=== PATIENT | female | born 1965 | race Caucasian/White ===

== ENCOUNTER 2020-12-28 12:49 | Inpatient (IN) | payer OTHER, SELFPAY ==
--- NOTE | 2020-12-28 12:58 | PC.NURSE ---
@ 12:50PM SISTER MORRIS HICKS CALLED FROM [place], CONCERNED FOR THIS PT HAVING A PSYCHOTIC BREAK AND BEING NON MED COMPLIANT FOR AWHILE MORRIS HICKS PHONE NUMBER IN [place] [phone] STATES TO PLEASE CALL WITH ANY QUESTIONS (THERE IS A 4 HOUR TIME DIFFERENCE IT WAS 5:50PM OVER THERE WHEN SHE CALLED)
--- NOTE | 2020-12-28 13:27 | ED.PSYCH ---
HPI - Psych General Chief Complaint: Psychiatric Symptoms Stated Complaint: CRISIS Time Seen by Provider: 12/28/20 13:15 Source: patient Mode of arrival: ambulatory History of Present Illness HPI Narrative: 55-year-old female presenting to the ED complaining of increased depression x a while, reports she is crying all the time, no desire to do anything. Reports increased lethargy. States she misses her family he was [place]. Denies SI/HI, EtOH or illicit drug use. Has been sober x3 years. Denies CP/SOB, abdominal pain, nausea/vomiting MD complaint: feels depressed Related Data Allergies Allergy/AdvReac Type Severity Reaction Status Date / Time No Known Allergies Allergy Unverified 12/28/20 13:32 Review of Systems Review of Systems: Constitutional: No Fever, No Chills, No Fatigue, No Malaise ENT/Mouth: No Ear Pain, No Nasal Congestion, No sore throat, No Rhinorrhea Eyes: No Eye Pain, No Swelling, No Discharge Cardiovascular: No Chest Pain, No SOB Respiratory: No Cough, No Dyspnea Gastrointestinal: No Nausea, No Vomiting, No Diarrhea, No Constipation, No Abdominal pain Genitourinary: No Dysuria, No Flank Pain Musculoskeletal: No joint pain, No Myalgias, No Joint Swelling Skin: No Skin Lesions, No rash Neuro: No Weakness, No Numbness, No Headache Psych: No Anxiety/Panic, + Depression, No SI/HI/AH/VH, No Social Issues Yes all other systems are reviewed and are negative [facility] Past Medical History Attestation statement: The following information was validated with the patient. Medical History (Updated 12/28/20 @ 17:44 by GUIDO Thompson) Depression Social History Social History Advance Directives: No Advance Directives Information Provided: Yes Physical Exam Vital Signs: Vital Signs: Last Vital Signs Temp 97.3 F 12/28/20 13:31 Pulse 92 12/28/20 13:31 Resp 18 12/28/20 13:31 BP 141/79 H 12/28/20 13:31 Pulse Ox 98 12/28/20 13:31 Body Mass Index 23.3 Const: General: cooperative, comfortable and no acute distress Orientation/consciousness: patient oriented x3 Limitations: no limitations HENMT: Head: Yes normal to inspection and Yes atraumatic Ears: hearing grossly normal bilaterally General nose exam: Normal external nose present Face and sinus: Yes normal facial exam Eyes: General: appearance normal, both eyes and all related structures EOM: EOMs intact bilaterally Neck: Neck: Yes normal visual inspection and Yes no meningeal signs Resp: Effort & Inspection: normal respiratory effort Auscultation: clear to auscultation bilaterally, no crackles, no rales, no rhonchi and no wheezes Cardio: Rate: regular rate Heart sounds: S1 normal heart sound present and S2 normal heart sound present GI: Inspection: Yes normal to inspection Palpation (GI): Soft to palpation, nontender, no guarding and not rigid Skin: Rashes: no rashes Wounds: no wounds Neuro: General: patient oriented x3, tone normal, moves all extremities, no meningeal signs and CN's II-XI intact bilaterally Gait exam (Neuro): Normal gait present Extrem: General: Yes normal to inspection Psych: Appearance: grossly normal Affect: Sad affect present and Blunted affect present Attitude: cooperative Thought content: suicidality, no homicidality and Depressive thoughts present Course Course Course Narrative: -1800--ED care transferred to GUIDO Moore pending crisis evaluation MDM - Psych MDM Narrative Medical decision making narrative: 55-year-old female presenting to the ED complaining of increased depression x a while, reports she is crying all the time, no desire to do anything. On exam vital signs stable, NAD/nontoxic, appears depressed/sad. Will consult care team Medical Records Attestation: I reviewed the patient's medical records. Lab Data Attestation: I reviewed the patient's lab results. Labs: Lab Results 12/28/20 12/28/20 Range/Units 14:32 16:04 Urine Opiates Screen Not Detected (Not Detect) Urine Fentanyl Screen Not Detected (Not Detect) Ur Barbiturates Screen Not Detected (Not Detect) Ur Phencyclidine Scrn Not Detected (Not Detect) Ur Amphetamines Screen Not Detected (Not Detect) U Benzodiazepines Scrn Not Detected (Not Detect) Urine Cocaine Screen Not Detected (Not Detect) U Marijuana (THC) Screen Not Detected (Not Detect) COVID-19 ([facility]) Negative (Negative) COVID-19 Clin Com See Note Discharge Plan Discharge Clinical Impression: Depression
[2020-12-28 13:31] VITALS: BP 141/79; PULSE 92; RESP 18; TEMP 36.3; O2SAT 98; BMI 23.3
[2020-12-28 14:59] LABS: COVID-19 Test Negative (Negative)
[2020-12-28 16:29] LABS: Amphetamine Screen Urine Not Detected (Not Detect); Barbiturates, Urine Not Detected (Not Detect); Benzodiazepines Screen Urine Not Detected (Not Detect); Cannabinoid Screen Urine Not Detected (Not Detect); Cocaine Screen Urine Not Detected (Not Detect); Fentanyl, urine Not Detected (Not Detect); Opiate Screen Urine Not Detected (Not Detect); Phencyclidine Screen Urine Not Detected (Not Detect)
--- NOTE | 2020-12-28 17:55 | ECG_ITS ---
Test Reason : MED CLEARANCE Blood Pressure : / mmHG Vent. Rate : 061 BPM Atrial Rate : 061 BPM P-R Int : 154 ms QRS Dur : 086 ms QT Int : 410 ms P-R-T Axes : 056 -11 029 degrees QTc Int : 412 ms Normal sinus rhythm Low voltage QRS Borderline ECG No previous ECGs available Referred By: Laurie Novak Electronically Signed By:YOGESH BERRY MD
--- NOTE | 2020-12-28 17:57 | PC.NURSE ---
PT SEEN BY CARE TEAM WILL BE PLACED ON M5 SOME POINT TONIGHT
[2020-12-28 18:40] LABS: MANUAL DIFF FLAG NO
[2020-12-28 18:51] LABS: Basophils Absolute Auto 0.1 X10*3/uL (0.0-0.2); Basophils Percent Auto 0.8 % (0-2); Eosinophils Absolute Auto 0.1 X10*3/uL (0.0-0.4); Eosinophils Percent Auto 1.3 % (0-4); Hematocrit 37.4 % (37.0-47.0); Imm Gran Abs Auto 0.03 X10*3/uL (0.00-0.03); Imm Gran Pct Auto 0.4 % (0.0-0.4); Lymphocytes Absolute Auto 2.5 X10*3/uL (1.2-4.9); Lymphocytes Percent Auto 34.1 % (20-40); Mean Corpuscular HGB Conc 34.8 g/dl (31.0-35.0); Mean Corpuscular Hemoglobin 32.5 pg (27.0-33.0); Mean Corpuscular Volume 93.5 fL (80.0-98.0); Mean Platelet Volume 10.8 fL (9.4-12.3); Monocytes Absolute Auto 0.7 X10*3/uL (0.1-1.2); Neutrophils Percent Auto 54.4 % (45-73); Platelet Count 235 X10*3/uL (160-400); Red Cell Distribution Width 12.8 % (11.0-16.0); White Blood Count 7.4 X10*3/uL (4.8-10.8)
[2020-12-28 18:54] LABS: Ethanol < 10 mg/dL
[2020-12-28 18:56] LABS: Anion Gap 10 (12-20); Blood Urea Nitrogen 12 mg/dL (9-16); Calcium 8.7 mg/dL (8.4-10.2); Carbon Dioxide 27 mmol/L (22-29); Chloride 108 mmol/L (96-108); Estimated Glomerular Filt Rate > 60; Glucose Random 84 mg/dL (60-115); Potassium 4.3 mmol/L (3.3-5.1); Sodium 141 mmol/L (135-145)
--- NOTE | 2020-12-28 19:06 | MHC.CARE ---
CARE team evaluation complete. Plan is for M5 admission this evening.
[2020-12-28 21:55] VITALS: BP 140/85; PULSE 72; RESP 18; TEMP 36.7; O2SAT 99
[2020-12-28 23:24] LABS: Appearance Urine HAZY; Color Urine YELLOW; Glucose Urine UA NEG (NEG); Leukocyte Esterase Urine NEG (NEG); Nitrite Urine NEG (NEG); Specific Gravity - Urine 1.015 (1.005-1.025); Urine Blood NEG (NEG); Urine Ketones 5 MG/DL (NEG); Urine Protein NEG (NEG-TRACE)
--- NOTE | 2020-12-29 01:46 | PC.NURSE ---
Patient is admitted to [facility] on a CV at 21:55pm with a diagnosis of Unspecified bipolar disorder. Patient denies current S.I.,H.I. A/V Hallucinations. Patient presented to [facility] at the strong encouragement of her sister due to worsening depression, poor ADLs, no energy or motivation, loss of interest, socially isolated, and experiencing thoughts of and not wanting to wake up...Patient is experiencing persecutory delusions, believing that there are people that are trying to kill her and her siblings in [place]. Patient has a history of several psychiatric admissions, particularly over the past five years, for varying episodes of eben and depression. The most recent admission was in June 2020 at [facility]. She has been consistently noncompliant with medications over the past five years a well.
[2020-12-29 06:00] VITALS: BP 136/79; PULSE 75; RESP 17; TEMP 36.8; O2SAT 98
[2020-12-29 08:49] LABS: Estimated Average Glucose 82 mg/dL; Hemoglobin A1c % 4.5 %
[2020-12-29 09:15] LABS: Cholesterol 236 mg/dL; HDL Cholesterol 61 mg/dL; LDL Cholesterol Calculated 136 mg/dl; Triglycerides 199 mg/dL
[2020-12-29 09:37] LABS: Free T4 (Free Thyroxine) 0.99 ng/dL (0.71-1.85)
[2020-12-29 10:02] LABS: Folate 3.9 ng/mL (> or = 4.0); Vitamin B12 333 pg/mL (200-900)
--- NOTE | 2020-12-29 20:42 | P.HPPS_ITS ---
HPI Date of Service: 12/29/20 Chief Complaint: Depression Sources of Information: patient interviewed, chart reviewed and crisis/core team assessment reviewed HPI Subjective Notes: Velazquez Warning and Conditional Voluntary Healthcare Proxy: No Guardianship: No Medical Problems Affecting Mental Status: No Narrative: 55 yo female, history of bipolar disorder, seasonal affective disorder, in recovery for the past three years, presents with increasing sx of depression. I have slowly spiraled down. I got isolated with COVID. Pt reports she has been depressed for a long while, feels lost isolated. Stressors include pt was living with a family she has known for 30 years and their relationship deteriorated-she was helping to care for an 83 yo female. As her depression increased she stopped interacting and became more isolated and angry- leaving this family in June 2020 and moving in with a friend from work. This move did not work as well and pt is scheduled to move into an apt in [place] at the end of Dec. Work has also been a stress. 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 She is not used to that developmental level-this along with COVID, virtual learning, the second graders being special needs children have her feeling as if she is doing a bad job and being ineffective . She has worked at this for two years and is wanting to quit. Pt is also in recovery. With the pandemic she has lost tough with meetings and become more isolated. Reports in pt admit spring 2020 where after discharge she stopped medications as she felt sedate. She did well for a time, loss 100 lbs as meds were causing SE. As a result she has lost ana in meds, however, she reports her sister demands she return to medications- I cannot believe how angry she is with me. She will disown me if I don't go back on meds. Pt has also lost connections with family in [place]-she has not been home in 3 years due to work and COVID and feels lost. Reports sx of poor sleep, appetite, anergy, amotivation, inability to function, weight loss. Passive SI is present as well. Identifies this time of year as being the hardest for her SAD. Past Psychiatric History: IP: Several: Estimates 10-12 over the past 20-30 years. Most recent June 2020 [facility] OP: None currently. Most recent, [facility] [facility]. and Dr. Nguyen Trials: Latuda, Wellbutrin, Celexa, Gabapentin Denies hx of suicide attempts Medical Evaluation Reviewed: Yes [facility] Medical History (Updated 12/29/20 @ 21:00 by Juliane Gomez, VINOD) Alcohol use disorder, severe, in sustained remission, dependence Bipolar disorder current episode depressed Depression Seasonal affective disorder Narrative: Hx of 100 lb weight loss. 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 Social History: Born and raised in [place]. To [place] age 20 on basketball scholarship-still plays Teacher- adult, high school, middle school. For the past two years assigned to second grade, [employer] which has been difficult for her. No current partner No children Substance History: Recovery for three years from alcohol. Hx of binge drinking, 6 pack 20 minutes. Trauma History: Affirms Diagnostics Vital Signs (24Hr): Vital Signs - 24 hr 12/28/20 21:55 12/29/20 06:00 Temperature 98.1 F 98.2 F Pulse Rate 72 75 Respiratory Rate 18 17 Blood Pressure 140/85 H 136/79 Pulse Oximetry 99 98 Body Mass Index 23.3 Labs Results: 12/28/20 18:32 12/28/20 18:32 Labs: Laboratory Results - last 48 hr 12/28/20 12/28/20 12/28/20 14:32 16:04 16:04 WBC RBC Hgb Hct MCV MCH MCHC RDW Plt Count MPV Immature Gran % (Auto) Neut % (Auto) Lymph % (Auto) [place] % (Auto) Eos % (Auto) Baso % (Auto) Lymph # (Auto) [place] # (Auto) Eos # (Auto) Baso # (Auto) Abs Immat Gran (auto) Absolute Neuts (auto) Absolute Nucleated RBC Nucleated RBC % (auto) Sodium Potassium Chloride Carbon Dioxide Anion Gap BUN Creatinine Estim Creat Clear Calc Estimated GFR Random Glucose Estimat Average Glucose Hemoglobin A1c % Calcium Triglycerides Cholesterol LDL Cholesterol, Calc HDL Cholesterol Vitamin B12 Folate TSH Free T4 Urine Color YELLOW Urine Appearance HAZY Urine pH 7.0 Ur Specific [place] 1.015 Urine Protein NEG Urine Glucose (UA) NEG Urine Ketones 5 Urine Blood NEG Urine Nitrite NEG Ur Leukocyte Esterase NEG Urine Opiates Screen Not Detected Urine Fentanyl Screen Not Detected Ur Barbiturates Screen Not Detected Ur Phencyclidine Scrn Not Detected Ur Amphetamines Screen Not Detected U Benzodiazepines Scrn Not Detected Urine Cocaine Screen Not Detected U Marijuana (THC) Screen Not Detected Ethyl Alcohol COVID-19 ([facility]) Negative COVID-19 Clin Com See Note 12/28/20 12/28/20 12/28/20 18:32 18:32 18:32 WBC 7.4 RBC 4.00 L Hgb 13.0 Hct 37.4 MCV 93.5 MCH 32.5 MCHC 34.8 RDW 12.8 Plt Count 235 MPV 10.8 Immature Gran % (Auto) 0.4 Neut % (Auto) 54.4 Lymph % (Auto) 34.1 [place] % (Auto) 9.0 Eos % (Auto) 1.3 Baso % (Auto) 0.8 Lymph # (Auto) 2.5 [place] # (Auto) 0.7 Eos # (Auto) 0.1 Baso # (Auto) 0.1 Abs Immat Gran (auto) 0.03 Absolute Neuts (auto) 4.0 Absolute Nucleated RBC 0.000 Nucleated RBC % (auto) 0.0 Sodium 141 Potassium 4.3 Chloride 108 Carbon Dioxide 27 Anion Gap 10 L BUN 12 Creatinine 0.68 Estim Creat Clear Calc 86.0 Estimated GFR > 60 Random Glucose 84 Estimat Average Glucose Hemoglobin A1c % Calcium 8.7 Triglycerides Cholesterol LDL Cholesterol, Calc HDL Cholesterol Vitamin B12 Folate TSH Free T4 Urine Color Urine Appearance Urine pH Ur Specific [place] Urine Protein Urine Glucose (UA) Urine Ketones Urine Blood Urine Nitrite Ur Leukocyte Esterase Urine Opiates Screen Urine Fentanyl Screen Ur Barbiturates Screen Ur Phencyclidine Scrn Ur Amphetamines Screen U Benzodiazepines Scrn Urine Cocaine Screen U Marijuana (THC) Screen Ethyl Alcohol < 10 COVID-19 ([facility]) COVID-19 Clin Com 12/29/20 12/29/20 12/29/20 08:05 08:05 08:05 WBC RBC Hgb Hct MCV MCH MCHC RDW Plt Count MPV Immature Gran % (Auto) Neut % (Auto) Lymph % (Auto) [place] % (Auto) Eos % (Auto) Baso % (Auto) Lymph # (Auto) [place] # (Auto) Eos # (Auto) Baso # (Auto) Abs Immat Gran (auto) Absolute Neuts (auto) Absolute Nucleated RBC Nucleated RBC % (auto) Sodium Potassium Chloride Carbon Dioxide Anion Gap BUN Creatinine Estim Creat Clear Calc Estimated GFR Random Glucose Estimat Average Glucose 82 Hemoglobin A1c % 4.5 Calcium Triglycerides 199 Cholesterol 236 LDL Cholesterol, Calc 136 HDL Cholesterol 61 Vitamin B12 333 Folate 3.9 L TSH 1.60 Free T4 0.99 Urine Color Urine Appearance Urine pH Ur Specific [place] Urine Protein Urine Glucose (UA) Urine Ketones Urine Blood Urine Nitrite Ur Leukocyte Esterase Urine Opiates Screen Urine Fentanyl Screen Ur Barbiturates Screen Ur Phencyclidine Scrn Ur Amphetamines Screen U Benzodiazepines Scrn Urine Cocaine Screen U Marijuana (THC) Screen Ethyl Alcohol COVID-19 ([facility]) COVID-19 Clin Com Meds/Allergies Meds Home Medications Acetaminophen (Acetaminophen 325 Mg Tablet) 650 mg PO Q6H PRN PRN Reason: Headache/Pain Mild Scale (1-3) Al Hydroxide/Mg Hydroxide (Magnesium Hydrox/Alum Hydrox 30 Ml Oral.Susp) 30 ml PO Q6H PRN PRN Reason: Heartburn/Nausea Folic Acid (Folic Acid 1 Mg Tablet) 1 mg PO DAILY [facility] Last Admin: 12/30/20 09:24 Dose: 1 mg Documented by: Hydroxyzine HCl (Hydroxyzine Hcl 25 Mg Tablet) 25 mg PO Q6H PRN PRN Reason: Anxiety Magnesium Hydroxide (Milk Of Magnesia 30 Ml Oral.Susp) 30 ml PO DAILY PRN PRN Reason: Constipation Multivitamins/Vitamin C (Multivitamin Tablet) 1 tab PO DAILY [facility] Last Admin: 12/30/20 09:24 Dose: 1 tab Documented by: Trazodone HCl (Trazodone Hcl 50 Mg Tablet) 50 mg PO BEDTIME PRN PRN Reason: Insomnia Allergies Allergies Allergy/AdvReac Type Severity Reaction Status Date / Time lamotrigine [From Lamictal] AdvReac Unknown Unknown Verified 12/30/20 09:35 Mental Status Exam Mental Status Exam Patient Appearance: Fatigued Patient Orientation: Person, Place, Time and Situation Level of Consciousness: Alert Patient Behavior: Talkative, Cooperative, Passive, Resistive to Care, Fatigued and Good Eye Contact Mood Description: Depressed Affect Description: Flat Patient Cognition Impaired: No Ability to Follow Directions: Good Speech Pattern: Spontaneous Speech Memory Description: Intact Hallucinations: None Delusions: Not Present Thought Process: Rumination Thought Content: positive for Perseveration and positive for Suicidal Ideation (denies) Depressive Symptoms: Increased Anxiety, Increased Irritability, Difficulty Sl eeping, Changes in Appetite, Hopelessness, Thoughts of /Suicide and Difficulty Concentrating Judgement: Fair Assessment & Plan Assessment & Plan (1) Bipolar disorder current episode depressed: Status: Acute Code(s): F31.30 - Bipolar disorder, current episode depressed, mild or moderate severity, unspecified (2) Seasonal affective disorder: Status: Acute Code(s): F33.8 - Other recurrent depressive disorders Assessment and Plan: 55 yo female with a history of bipolar disorder, currently depressed and Seasonal Affective Disorder. Pt reports being in recovery from alcohol for the past three years. Pt reports increasing sx of depression for the past year with stressors of work, living situation, changes from COVID-19 and being in recovery without AA supports. At this time pt has no interest in medications, however, acknowledges need for treatment and family being frustrated with her regarding her refusal of treatment for several months. Discussed medication options and she will consider. 1. Folic Acid 1 mg daily 2. MVI 1 tab daily 3. Pt declines psychotropics at this time. She describes a difficult history with them. Will continue to discuss with pt. 4. Collateral contact with family Patient educated on: diagnosis, medication risk/benefits, therapeutic strategies and medical condition Informed Consent: understands Reason for continued inpatient stay Substantial Risk for: inability to function and rapid decompensation
[2020-12-30 06:00] VITALS: BP 147/66; PULSE 70; RESP 18; TEMP 36.6; O2SAT 99
[2020-12-30] MEDS: Folic Acid 1 MG TABLET PO (09:24)
[2020-12-30] MEDS: Multivitamin TABLET 1 TAB PO (09:24)
[2020-12-30 18:00] VITALS: BP 130/81; PULSE 71; TEMP 37; O2SAT 97
--- NOTE | 2020-12-30 18:33 | HO.PSYCHPN ---
Subjective Subjective Date of Service: 12/30/20 Reason For Visit: Depression Subjective Notes: Conditional Voluntary and 3 Day Healthcare Proxy: No Guardianship: No Medical Problems Affecting Mental Status: No Interim History: Pt discussed reluctance to begin medications. States she is feeling that she has a choice-to care for physical or mental health as when she takes medications she gains weight, has metabolic effects and craves food, does not want to exercise or care for herself and when she does not take medications she experiences lability, depression, amotivation, anergy. It is a choice between my physical and mental health-my joints will hurt and I won't want to move or I am unhappy, sad, crying and want to from my choices, like now. I regret that I have missed out on life because of this, but now I am not obese, not tired, no chronic fatigue, no psoriasis, no headache, I can run 5 miles but my heart and soul are taken away with this depression. Reports med trials since her 30's and no relief in both camps ever-either physical or mental. Discussed a new plan combining medications with nutrition/exercise physiology to assist with balance. Family meeting via phone with sister Yarelis in [place]. Pt wanting to return home-her last visit being 3 years ago for father's , anniversary of moms 4 years ago Nov she discussed as difficult, Yarelis agreed-family is grieving loss of both parents-they have not been able to visit the [place] due to COVID restrictions as they are experiencing a 3 mile boundary for travel, are 90% vaccinated but the 3-4 thousand cases/day and very limited ICU capacity-thus a strict lock down. Pt cried during the meeting-missing home- the air, culture, people, the place that formed my soul. Yarelis reminded pt that home has changed since parents have passed. Family is very supportive of pt and would like her to accept rx and return home at some point. They offer their full support and believe pt has been suffering for too long. Medication Compliance: Yes (agrees to trials to begin) Side effects from medications: Yes (hx as noted above) Attending Groups: Yes Review of Systems Acute medical concerns: No Medical Review of Systems: unchanged Review of Systems Reports behavioral changes Psychiatric: Reports abnormal sleep pattern, Reports anxiety, Reports behavioral changes, Reports change in appetite, Reports depression, Reports difficulty concentrating, Reports hopelessness, Reports irritability, Reports anhedonia, Reports mood swings and Reports suicidal ideation Mental Status Exam Mental Status Exam Patient Appearance: Fatigued and Appropriate Patient Orientation: Person, Place, Time and Situation Level of Consciousness: Restless and Alert Patient Behavior: Talkative, Cooperative, Restless, Anxious, Fearful, Resistive to Care, Avoidant, Fatigued, Distractible, Isolative and Good Eye Contact Mood Description: Withdrawn, Depressed, Fearful, Anxious, Sad, Nervous and Apprehensive Affect Description: Flat and Apprehensive Patient Cognition Impaired: No Ability to Follow Directions: Good Speech Pattern: Perseverating, Spontaneous Speech, Soft-Spoken and Long Pauses Memory Description: Intact Hallucinations: None Delusions: Not Present Perceptual Disturbances: Depersonalization and Derealization Thought Process: Rumination Thought Content: positive for Circumstantial, positive for Perseveration and positive for Suicidal Ideation Depressive Symptoms: Increased Anxiety, Insomnia, Diff. Making Decisions, Muscle Tension, Increased Irritability, Difficulty Sleeping, Changes in Appetite, Crying Spells, Significant Weight Loss, Loss of Int. in Activity, Feelings of Worthlessness, Hopelessness, Isolating-Friends/Family, Feelings of Guilt, Unhappiness, Increased Fatigue, Thoughts of /Suicide, Low Self Esteem, Loss of Energy and Difficulty Concentrating Abnormal Motor Activity Signs and Symptoms: Restlessness Judgement: Fair Diagnostics Vital Signs (24Hr): Vital Signs - 24 hr 12/30/20 06:00 Temperature 98 F Pulse Rate 70 Respiratory Rate 18 Blood Pressure 147/66 H Pulse Oximetry 99 Body Mass Index 23.3 Labs Results: 12/28/20 18:32 12/28/20 18:32 Labs: Laboratory Results - last 48 hr 12/28/20 12/28/20 12/28/20 16:04 18:32 18:32 WBC 7.4 RBC 4.00 L Hgb 13.0 Hct 37.4 MCV 93.5 MCH 32.5 MCHC 34.8 RDW 12.8 Plt Count 235 MPV 10.8 Immature Gran % (Auto) 0.4 Neut % (Auto) 54.4 Lymph % (Auto) 34.1 [place] % (Auto) 9.0 Eos % (Auto) 1.3 Baso % (Auto) 0.8 Lymph # (Auto) 2.5 [place] # (Auto) 0.7 Eos # (Auto) 0.1 Baso # (Auto) 0.1 Abs Immat Gran (auto) 0.03 Absolute Neuts (auto) 4.0 Absolute Nucleated RBC 0.000 Nucleated RBC % (auto) 0.0 Sodium 141 Potassium 4.3 Chloride 108 Carbon Dioxide 27 Anion Gap 10 L BUN 12 Creatinine 0.68 Estim Creat Clear Calc 86.0 Estimated GFR > 60 Random Glucose 84 Estimat Average Glucose Hemoglobin A1c % Calcium 8.7 Triglycerides Cholesterol LDL Cholesterol, Calc HDL Cholesterol Vitamin B12 Folate TSH Free T4 Urine Color YELLOW Urine Appearance HAZY Urine pH 7.0 Ur Specific [place] 1.015 Urine Protein NEG Urine Glucose (UA) NEG Urine Ketones 5 Urine Blood NEG Urine Nitrite NEG Ur Leukocyte Esterase NEG Ethyl Alcohol 12/28/20 12/29/20 12/29/20 18:32 08:05 08:05 WBC RBC Hgb Hct MCV MCH MCHC RDW Plt Count MPV Immature Gran % (Auto) Neut % (Auto) Lymph % (Auto) [place] % (Auto) Eos % (Auto) Baso % (Auto) Lymph # (Auto) [place] # (Auto) Eos # (Auto) Baso # (Auto) Abs Immat Gran (auto) Absolute Neuts (auto) Absolute Nucleated RBC Nucleated RBC % (auto) Sodium Potassium Chloride Carbon Dioxide Anion Gap BUN Creatinine Estim Creat Clear Calc Estimated GFR Random Glucose Estimat Average Glucose 82 Hemoglobin A1c % 4.5 Calcium Triglycerides 199 Cholesterol 236 LDL Cholesterol, Calc 136 HDL Cholesterol 61 Vitamin B12 Folate TSH 1.60 Free T4 0.99 Urine Color Urine Appearance Urine pH Ur Specific [place] Urine Protein Urine Glucose (UA) Urine Ketones Urine Blood Urine Nitrite Ur Leukocyte Esterase Ethyl Alcohol < 10 12/29/20 08:05 WBC RBC Hgb Hct MCV MCH MCHC RDW Plt Count MPV Immature Gran % (Auto) Neut % (Auto) Lymph % (Auto) [place] % (Auto) Eos % (Auto) Baso % (Auto) Lymph # (Auto) [place] # (Auto) Eos # (Auto) Baso # (Auto) Abs Immat Gran (auto) Absolute Neuts (auto) Absolute Nucleated RBC Nucleated RBC % (auto) Sodium Potassium Chloride Carbon Dioxide Anion Gap BUN Creatinine Estim Creat Clear Calc Estimated GFR Random Glucose Estimat Average Glucose Hemoglobin A1c % Calcium Triglycerides Cholesterol LDL Cholesterol, Calc HDL Cholesterol Vitamin B12 333 Folate 3.9 L TSH Free T4 Urine Color Urine Appearance Urine pH Ur Specific [place] Urine Protein Urine Glucose (UA) Urine Ketones Urine Blood Urine Nitrite Ur Leukocyte Esterase Ethyl Alcohol Medications Medications Current Medications Acetaminophen (Acetaminophen 325 Mg Tablet) 650 mg PO Q6H PRN PRN Reason: Headache/Pain Mild Scale (1-3) Al Hydroxide/Mg Hydroxide (Magnesium Hydrox/Alum Hydrox 30 Ml Oral.Susp) 30 ml PO Q6H PRN PRN Reason: Heartburn/Nausea Folic Acid (Folic Acid 1 Mg Tablet) 1 mg PO DAILY [facility] Last Admin: 12/30/20 09:24 Dose: 1 mg Documented by: Hydroxyzine HCl (Hydroxyzine Hcl 25 Mg Tablet) 25 mg PO Q6H PRN PRN Reason: Anxiety Magnesium Hydroxide (Milk Of Magnesia 30 Ml Oral.Susp) 30 ml PO DAILY PRN PRN Reason: Constipation Multivitamins/Vitamin C (Multivitamin Tablet) 1 tab PO DAILY [facility] Last Admin: 12/30/20 09:24 Dose: 1 tab Documented by: Trazodone HCl (Trazodone Hcl 50 Mg Tablet) 50 mg PO BEDTIME PRN PRN Reason: Insomnia Allergies Allergies Allergy/AdvReac Type Severity Reaction Status Date / Time lamotrigine [From Lamictal] AdvReac Unknown Unknown Verified 12/30/20 09:35 Assessment & Plan Assessment & Plan (1) Bipolar disorder current episode depressed: Status: Acute Code(s): F31.30 - Bipolar disorder, current episode depressed, mild or moderate severity, unspecified (2) Seasonal affective disorder: Status: Acute Code(s): F33.8 - Other recurrent depressive disorders Assessment and Plan: 55 yo female with a history of bipolar disorder, currently depressed and Seasonal Affective Disorder. Pt reports being in recovery from alcohol for the past three years. Pt reports increasing sx of depression for the past year with stressors of work, living situation, changes from COVID-19 and being in recovery without AA supports. At this time pt has no interest in medications, however, acknowledges need for treatment and family being frustrated with her regarding her refusal of treatment for several months. Discussed medication options and she will consider. 1. Folic Acid 1 mg daily 2. MVI 1 tab daily 3. Pt declines psychotropics at this time. She describes a difficult history with them. Will continue to discuss with pt. 4. Collateral contact with family 12/30/20: Family meeting via phone-Siblings are very supportive. Sister Yarelis is available for pt as needed. Discussed medications with pt. She is willing to trial- 1. Wellbutrin 75 mg a.m. 2. Nutrition consult 3. Aftercare planning with team-?[facility] with the goal of uniting physical/mental health wellness as pt feels this was missed in her previous out pt care attempts. I spent 60 minutes with the patient and/or on the patient floor today, greater than?50% of which was spent counseling/coordinating care. Patient educated on: diagnosis, medication risk/benefits, substance abuse, therapeutic strategies and medical condition Informed Consent: understands Reason for contiued inpatient stay Substantial Risk for: harm to self, inability to function and rapid decompensation
[2020-12-31 06:00] VITALS: BP 112/68; PULSE 63; RESP 18; TEMP 36.7; O2SAT 98
[2020-12-31] MEDS: buPROPion HCL 75 MG TABLET PO (08:22)
[2020-12-31] MEDS: Folic Acid 1 MG TABLET PO (08:22)
[2020-12-31] MEDS: Multivitamin TABLET 1 TAB PO (08:22)
[2020-12-31 08:35] VITALS: BMI 24.4
--- NOTE | 2020-12-31 15:36 | PM.PSYDC ---
DS: Providers Provider Date of Service: 12/31/20 Date of admission: 12/28/20 21:30 Date of discharge: 12/31/20 Primary care physician: Erin Griffin MD Admitting clinician: Juliane Gomez Attending physician on admission: Chris Garza Attending physician on discharge: Chris Garza Discharging clinician: Juliane Gomez DS: Diagnosis Discharge Diagnosis (1) Bipolar disorder current episode depressed: Status: Acute (2) Seasonal affective disorder: Status: Acute DS: Medications Discharge Medications Home Medications: Previous Rx's Medication Instructions Recorded bupropion HCl 75 mg tablet 75 mg PO DAILY #15 tab 12/31/20 folic acid 1 mg tablet 1 mg PO DAILY #30 tab 12/31/20 multivitamin (Daily-Janeth) 1 tab PO DAILY #30 tab 12/31/20 Mental Status Exam Mental Status Exam Patient Appearance: Fatigued Patient Orientation: Person, Place, Time and Situation Level of Consciousness: Alert Patient Behavior: Appropriate and Talkative Mood Description: Depressed Affect Description: Flat Patient Cognition Impaired: No Ability to Follow Directions: Good Speech Pattern: Spontaneous Speech Memory Description: Intact Hallucinations: None Delusions: Not Present Thought Process: Intact Thought Content: positive for Intact Depressive Symptoms: Increased Anxiety, Diff. Making Decisions and Significant Weight Loss Judgement: Good Data Data Completed and Pending Completed studies during hospitalization [Text1]: 12/28/20 12/28/20 12/28/20 14:32 16:04 16:04 WBC RBC Hgb Hct MCV MCH MCHC RDW Plt Count MPV Immature Gran % (Auto) Neut % (Auto) Lymph % (Auto) [place] % (Auto) Eos % (Auto) Baso % (Auto) Lymph # (Auto) [place] # (Auto) Eos # (Auto) Baso # (Auto) Abs Immat Gran (auto) Absolute Neuts (auto) Absolute Nucleated RBC Nucleated RBC % (auto) Sodium Potassium Chloride Carbon Dioxide Anion Gap BUN Creatinine Estim Creat Clear Calc Estimated GFR Random Glucose Estimat Average Glucose Hemoglobin A1c % Calcium Triglycerides Cholesterol LDL Cholesterol, Calc HDL Cholesterol Vitamin B12 Folate TSH Free T4 Urine Color YELLOW Urine Appearance HAZY Urine pH 7.0 Ur Specific [place] 1.015 Urine Protein NEG Urine Glucose (UA) NEG Urine Ketones 5 Urine Blood NEG Urine Nitrite NEG Ur Leukocyte Esterase NEG Urine Opiates Screen Not Detected Urine Fentanyl Screen Not Detected Ur Barbiturates Screen Not Detected Ur Phencyclidine Scrn Not Detected Ur Amphetamines Screen Not Detected U Benzodiazepines Scrn Not Detected Urine Cocaine Screen Not Detected U Marijuana (THC) Screen Not Detected Ethyl Alcohol COVID-19 ([facility]) Negative COVID-19 Clin Com See Note 12/28/20 12/28/20 12/28/20 18:32 18:32 18:32 WBC 7.4 RBC 4.00 L Hgb 13.0 Hct 37.4 MCV 93.5 MCH 32.5 MCHC 34.8 RDW 12.8 Plt Count 235 MPV 10.8 Immature Gran % (Auto) 0.4 Neut % (Auto) 54.4 Lymph % (Auto) 34.1 [place] % (Auto) 9.0 Eos % (Auto) 1.3 Baso % (Auto) 0.8 Lymph # (Auto) 2.5 [place] # (Auto) 0.7 Eos # (Auto) 0.1 Baso # (Auto) 0.1 Abs Immat Gran (auto) 0.03 Absolute Neuts (auto) 4.0 Absolute Nucleated RBC 0.000 Nucleated RBC % (auto) 0.0 Sodium 141 Potassium 4.3 Chloride 108 Carbon Dioxide 27 Anion Gap 10 L BUN 12 Creatinine 0.68 Estim Creat Clear Calc 86.0 Estimated GFR > 60 Random Glucose 84 Estimat Average Glucose Hemoglobin A1c % Calcium 8.7 Triglycerides Cholesterol LDL Cholesterol, Calc HDL Cholesterol Vitamin B12 Folate TSH Free T4 Urine Color Urine Appearance Urine pH Ur Specific [place] Urine Protein Urine Glucose (UA) Urine Ketones Urine Blood Urine Nitrite Ur Leukocyte Esterase Urine Opiates Screen Urine Fentanyl Screen Ur Barbiturates Screen Ur Phencyclidine Scrn Ur Amphetamines Screen U Benzodiazepines Scrn Urine Cocaine Screen U Marijuana (THC) Screen Ethyl Alcohol < 10 COVID-19 ([facility]) COVID-19 Clin Com 12/29/20 12/29/20 12/29/20 08:05 08:05 08:05 WBC RBC Hgb Hct MCV MCH MCHC RDW Plt Count MPV Immature Gran % (Auto) Neut % (Auto) Lymph % (Auto) [place] % (Auto) Eos % (Auto) Baso % (Auto) Lymph # (Auto) [place] # (Auto) Eos # (Auto) Baso # (Auto) Abs Immat Gran (auto) Absolute Neuts (auto) Absolute Nucleated RBC Nucleated RBC % (auto) Sodium Potassium Chloride Carbon Dioxide Anion Gap BUN Creatinine Estim Creat Clear Calc Estimated GFR Random Glucose Estimat Average Glucose 82 Hemoglobin A1c % 4.5 Calcium Triglycerides 199 Cholesterol 236 LDL Cholesterol, Calc 136 HDL Cholesterol 61 Vitamin B12 333 Folate 3.9 L TSH 1.60 Free T4 0.99 Urine Color Urine Appearance Urine pH Ur Specific [place] Urine Protein Urine Glucose (UA) Urine Ketones Urine Blood Urine Nitrite Ur Leukocyte Esterase Urine Opiates Screen Urine Fentanyl Screen Ur Barbiturates Screen Ur Phencyclidine Scrn Ur Amphetamines Screen U Benzodiazepines Scrn Urine Cocaine Screen U Marijuana (THC) Screen Ethyl Alcohol COVID-19 ([facility]) COVID-19 Clin Com DS: Summary Hospital Course Hospital Course: Admission to adult psychiatry to address symptoms of bipolar disorder-depressed phase, seasonal affective disorder. Pt has a diagnosis of alcohol use disorder and has been abstinent for three years without relapse. Care plan, medication regime and out patient plan of care prior to admission were reviewed. Education was provided regarding managment of symptoms, medication and side effects. Nursing and social economist worked extensively with patient on collateral contacts, plan of care, education regarding managment of symptoms, medications and discharge planning. Pt is unsure of returning to medications as it made her physically unwell with weight gain and increase in A1C, however she agreed to restart Wellbutrin which was initiated. Pt submitted a three day notice and did leave abruptly as she broke her front tooth and needed immediate dental care. She was encouraged to call/return as her care was just beginning and there was more work to do with her mood symptoms. She will consider. Time spent discussing smoking cessation with patient: 3 to 10 minutes Status at Discharge Cognitive/behavioral status at discharge: non-suicidal, non-psychotic Functional status at discharge: independent ambulation Overall status at discharge: patient is progressing back to baseline Time Spent with Patient Time attestation: Total time spent providing and/or coordinating discharge services: 40 Time spent: Greater than 30 minutes Discharge Plan Discharge Patient Disposition: Home, Self-Care Discharge Diagnosis: Bipolar Disorder, Depressed Phase Seasonal Affective Disorder Alcohol Use Disorder-Sustained Remission for three years Referrals: JESSE HAIRSTON, THERAPIST [Other] - 01/04/21 10:00 am (IN OFFICE) Erin Griffin MD [Primary Care Provider] - 1 Week Discharge Medications: New multivitamin [Daily-Janeth] Tablet 1 tab PO DAILY Qty: 30 RF: 0 bupropion HCl 75 mg Tablet 75 mg PO DAILY Qty: 15 RF: 1 folic acid 1 mg Tablet 1 mg PO DAILY Qty: 30 RF: 0 Discharge Orders: Discharge Order (Routine); Ordered 12/31/20 Ordered By: Juliane Gomez Diet: advance to usual diet Activity on Discharge: As tolerated Stand Alone Forms: Patient Portal Discharge page Care Plan Goals: Mood stabilization Health Concerns: Bipolar Disorder, Depressed Phase Seasonal Affective Disorder Plan of Treatment: Take medications as directed Attend scheduled appointments Assessment: Penny initiated Wellbutrin today. She signed a three day notice of intent to discharge which expires on 01/05/21. Today, her front tooth crown broke and she requested discharge to attend to this issue with her dentist, securing an appointment at 4:30pm today. She is alert, non-psychotic, denies SI plan or intent and is accepting of aftercare planning. I will contact her by phone on 01/04/21 0900 to check in and offer her bridge appointments in out pt until she is seen for medications with her referring practice. She agreed to this plan. Penny and Scott MARTINEZ talked with Penny's sister Yarelis in [place] to review this plan and to offer family added supports should they believe Penny will need extra assistance in the days ahead. Discharge Date/Time: 12/31/20 14:56
== END 2020-12-31 14:56 | disposition home or self-care (01) | DRG 753 ==
LOC: HO.ED 19:15 → HO.PM5 21:41
PROVIDERS: Physician Assistant; Admitting Provider Registered Nurse; Emergency Provider Emergency Medicine; PCP Family Medicine; Visit Provider Clinical Nurse Specialist Psychiatric/Mental Health, Adult
DX: F33.8 Other recurrent depressive disorders (principal); F31.30 Bipolar disorder, current episode depressed, mild or moderate severity, unspecified; Z20.822 Contact with and (suspected) exposure to COVID-19; Z79.899 Other long term (current) drug therapy
CPT/HCPCS: 36415; 80048; 80061; 80307; 81003; 82077; 82607; 82746; 83036; 84439; 84443; 85025; 87635; 93005; 99285

== ENCOUNTER 2021-01-01 16:17 | Emergency (ER) | payer OTHER, SELFPAY ==
--- NOTE | 2021-01-01 16:36 | PC.NURSE ---
called pt to triage after this nurse completed previous patients triage, pt did not answer to being called, checked the bathrooms and spoke with registration as well as charge nurse and the pod. charge stated he had called the pod to come get the patient however pod states they didnt have the patient, will notify charge of this.
--- NOTE | 2021-01-01 17:39 | PC.NURSE ---
Attempt at calling patient's cell phone with no answer and primary and only contact listed is an international phone number. Unable to connect with use of hospital peripheral edp equipment operator.
== END 2021-01-01 17:43 | disposition left against medical advice (07) ==
PROVIDERS: Emergency Provider Emergency Medicine
DX: F43.0 Acute stress reaction (principal)

== ENCOUNTER 2021-01-01 20:25 | Inpatient (IN) | payer OTHER, SELFPAY ==
--- NOTE | ~2021-01-01 | XR_ITS ---
EXAMINATION: XR CHEST CLINICAL INFORMATION: Chest pain. Status post restrain. COMPARISON: None TECHNIQUE: Frontal view of the chest was obtained. FINDINGS: The lungs are well-expanded and clear of acute pneumonic process. There is mild bronchovascular markings with peribronchial wall thickening likely reactive small airway disease. There is no pleural effusion. The heart size and pulmonary vascularity is normal. No gross bony abnormality seen XR/XR chest 1V IMPRESSION: No acute pneumonic process. Likely mild reactive small airway disease.
[2021-01-01 20:32] VITALS: BP 161/67; PULSE 53; RESP 17; TEMP 36.9; O2SAT 100; BMI 24.1
--- NOTE | 2021-01-01 21:25 | PHA.MEDREC ---
Pharmacy Consult ? Medication Reconciliation Pharmacy has completed the medication reconciliation.
--- NOTE | 2021-01-01 21:42 | ED.PSYCH ---
HPI - Psych General Chief Complaint: Psychiatric Symptoms Stated Complaint: Crisis Time Seen by Provider: 01/01/21 21:09 Source: patient Mode of arrival: ambulatory Limitations: no limitations History of Present Illness HPI Narrative: 55 y/o female with history of bipolar depression and recent admission to presents back to the hospital after discharge yesterday complaining of persistent and worsening depression and ongoing auditory hallucinations. She admits to vague suicidal ideation but has no plan. She is a poor historian and is not wanting to answer questions at this time. She reports she hears voices chronically but she will not report with they are saying. She reports being started on medications for this onM5. Per documentation she was admitted on the 9 to psychiatric floor and was discharged yesterday with need for a dental procedure to her front tooth. She reports going to the dentist in getting her crown temporary repaired on her front tooth. She is now willing to get treatment for her mental state. MD complaint: feels depressed and hallucinations Onset (ago): unknown Duration: constant History of same: Yes Relieving factors: none Exacerbating factors: none Associated psychiatric symptoms: depression, suicidal ideation and auditory hallucinations Treatments prior to arrival: none If self harm: admits thoughts of self harm Related Data Previous Rx's Medication Instructions Recorded bupropion HCl 75 mg tablet 75 mg PO DAILY #15 tab 12/31/20 folic acid 1 mg tablet 1 mg PO DAILY #30 tab 12/31/20 multivitamin (Daily-Janeth) 1 tab PO DAILY #30 tab 12/31/20 Allergies Allergy/AdvReac Type Severity Reaction Status Date / Time lamotrigine [From Lamictal] AdvReac Unknown Unknown Verified 01/01/21 20:31 Review of Systems Review of Systems: Constitutional: No Fever, No Chills ENT/Mouth: No sore throat, No Rhinorrhea, No Swallowing Difficulty Cardiovascular: No Chest Pain, No SOB Respiratory: No Cough, No Sputum, No Wheezing, No dyspnea Gastrointestinal: No Nausea, No Vomiting, No Diarrhea, No abdominal Pain Genitourinary: No Dysuria, No Urinary Frequency, No Hematuria Musculoskeletal: No joint pain, + Myalgias Skin: No Skin Lesions, No rash Neuro: No Weakness, No Numbness, No Dizziness, + Headache Psych: + Anxiety/Panic, + Depression, +AH, No VH, +SI, No HI Heme/Lymph: No Bruising, No Lymphadenopathy Endocrine: No Polyuria, No Polydipsia [facility] Past Medical History Medical History (Updated 01/01/21 @ 21:44 by GUIDO Jeter) Alcohol use disorder, severe, in sustained remission, dependence Bipolar disorder current episode depressed Depression Seasonal affective disorder Social History Social History Household Members: Friend(s) Household Members Other:: Living in [place], [place] with a Friend Housing: House Do you presently have visiting nurse or other home services: No Patient Tobacco Use Status: Never used Tobacco Second Hand Smoke Exposure: No Advance Directives: No Healthcare Proxy: No Guardian: No Patient : No service: No Sexual orientation: Straight/Heterosexual Physical Exam Vital Signs: Vital Signs: Last Vital Signs Temp 98.5 F 01/01/21 20:32 Pulse 53 01/01/21 20:32 Resp 17 01/01/21 20:32 BP 161/67 H 01/01/21 20:32 Pulse Ox 100 01/01/21 20:32 Body Mass Index 24.1 Appearance: Alert middle-aged female lying on the bed. X3. No acute distress. Eyes: Pupils equal, round and reactive to light. ENT: Pharynx normal. Neck: Normal inspection. Neck supple. CVS: Normal heart rate and rhythm. Pulses normal. Respiratory: No respiratory distress. Breath sounds normal. Abdomen: Soft and nontender. +BS x4 Skin: Skin warm and dry. Normal skin color. Normal skin turgor. No rashes. Extremities: No lower extremity edema. Atraumatic x4 Neuro: Oriented X 3. Flat affect, positive auditory hallucinations and suicidality. No motor deficit. No sensory deficit. CN II-XII intact. Course Course Course Narrative: 55-year-old female who was just discharged from presents back to the emergency room with worsening depression and auditory hallucinations. She was reportedly discharged from to [place] with need to go to the dentist for procedure. Clif from Psych would like the patient readmitted for ongoing psychiatric care per CARE team. Agree with plan. Will medically clear and plan for re-admission. Reevaluation(s) Reevaluation #1: Labs and Utox unremarkable. Medically cleared for psychiatric admission. Will place in physician observation while awaiting a bed upstairs. Physician observation started at 12:54am. Patient placed in physician observation because patient is awaiting inpatient psych admission. At the time observation was started patient's vital signs were stable. Patient is alert and oriented. Neuro exam is non-focal. CV: RRR and lungs are clear. Will continue to monitor. [facility] - Psych Lab Data Result diagrams: 01/01/21 22:07 01/01/21 22:07 Labs: Lab Results 01/01/21 01/01/21 01/01/21 Range/Units 22:07 22:07 22:07 WBC 7.1 (4.8-10.8) X10*3/uL RBC 3.75 L (4.20-5.50) X10*6/uL Hgb 12.0 (12.0-16.0) g/dl Hct 34.6 L (37.0-47.0) % MCV 92.3 (80.0-98.0) fL MCH 32.0 (27.0-33.0) pg MCHC 34.7 (31.0-35.0) g/dl RDW 12.9 (11.0-16.0) % Plt Count 193 (160-400) X10*3/uL MPV 10.2 (9.4-12.3) fL Immature Gran % (Auto) 0.1 (0.0-0.4) % Neut % (Auto) 54.9 (45-73) % Lymph % (Auto) 35.6 (20-40) % Atlantic % (Auto) 7.4 (2-11) % Eos % (Auto) 1.4 (0-4) % Baso % (Auto) 0.6 (0-2) % Lymph # (Auto) 2.5 (1.2-4.9) X10*3/uL Atlantic # (Auto) 0.5 (0.1-1.2) X10*3/uL Eos # (Auto) 0.1 (0.0-0.4) X10*3/uL Baso # (Auto) 0.0 (0.0-0.2) X10*3/uL Abs Immat Gran (auto) 0.01 (0.00-0.03) X10*3/uL Absolute Neuts (auto) 3.9 (2.0-8.3) x10*3/uL Absolute Nucleated RBC 0.000 (0.0-0.012) X10*3/uL Nucleated RBC % (auto) 0.0 (0.0-0.2) /100WBC Sodium 139 (135-145) mmol/L Potassium 3.7 (3.3-5.1) mmol/L Chloride 107 (96-108) mmol/L Carbon Dioxide 28 (22-29) mmol/L Anion Gap 8 L (12-20) BUN 12 (9-16) mg/dL Creatinine 0.60 (0.5-1.4) mg/dL Estim Creat Clear Calc 97.5 Estimated GFR > 60 Random Glucose 77 (60-115) mg/dL Calcium 8.3 L (8.4-10.2) mg/dL Urine Opiates Screen (Not Detect) Urine Fentanyl Screen (Not Detect) Ur Barbiturates Screen (Not Detect) Ur Phencyclidine Scrn (Not Detect) Ur Amphetamines Screen (Not Detect) U Benzodiazepines Scrn (Not Detect) Urine Cocaine Screen (Not Detect) U Marijuana (THC) Screen (Not Detect) Ethyl Alcohol mg/dL COVID-19 ([facility]) Negative (Negative) COVID-19 Clin Com See Note 01/01/21 01/01/21 Range/Units 22:07 22:07 WBC (4.8-10.8) X10*3/uL RBC (4.20-5.50) X10*6/uL Hgb (12.0-16.0) g/dl Hct (37.0-47.0) % MCV (80.0-98.0) fL MCH (27.0-33.0) pg MCHC (31.0-35.0) g/dl RDW (11.0-16.0) % Plt Count (160-400) X10*3/uL MPV (9.4-12.3) fL Immature Gran % (Auto) (0.0-0.4) % Neut % (Auto) (45-73) % Lymph % (Auto) (20-40) % Atlantic % (Auto) (2-11) % Eos % (Auto) (0-4) % Baso % (Auto) (0-2) % Lymph # (Auto) (1.2-4.9) X10*3/uL Atlantic # (Auto) (0.1-1.2) X10*3/uL Eos # (Auto) (0.0-0.4) X10*3/uL Baso # (Auto) (0.0-0.2) X10*3/uL Abs Immat Gran (auto) (0.00-0.03) X10*3/uL Absolute Neuts (auto) (2.0-8.3) x10*3/uL Absolute Nucleated RBC (0.0-0.012) X10*3/uL Nucleated RBC % (auto) (0.0-0.2) /100WBC Sodium (135-145) mmol/L Potassium (3.3-5.1) mmol/L Chloride (96-108) mmol/L Carbon Dioxide (22-29) mmol/L Anion Gap (12-20) BUN (9-16) mg/dL Creatinine (0.5-1.4) mg/dL Estim Creat Clear Calc Estimated GFR Random Glucose (60-115) mg/dL Calcium (8.4-10.2) mg/dL Urine Opiates Screen Not Detected (Not Detect) Urine Fentanyl Screen Not Detected (Not Detect) Ur Barbiturates Screen Not Detected (Not Detect) Ur Phencyclidine Scrn Not Detected (Not Detect) Ur Amphetamines Screen Not Detected (Not Detect) U Benzodiazepines Scrn Not Detected (Not Detect) Urine Cocaine Screen Not Detected (Not Detect) U Marijuana (THC) Screen Not Detected (Not Detect) Ethyl Alcohol < 10 mg/dL COVID-19 ([facility]) (Negative) COVID-19 Clin Com Discharge Plan Discharge Clinical Impression: Bipolar disorder current episode depressed Qualifiers: Current episode severity: severe Psychotic features: with psychotic features Qualified Code(s): F31.5 - Bipolar disorder, current episode depressed, severe, with psychotic features Patient Disposition: Admitted As Inpatient
--- NOTE | 2021-01-01 22:07 | PC.NURSE ---
plan is to have pt labs drawn and then pt has a room on m5. waiting results.
[2021-01-01 22:14] LABS: MANUAL DIFF FLAG NO
[2021-01-01 22:16] LABS: Basophils Percent Auto 0.6 % (0-2); Eosinophils Absolute Auto 0.1 X10*3/uL (0.0-0.4); Eosinophils Percent Auto 1.4 % (0-4); Hematocrit 34.6 % (37.0-47.0); Imm Gran Abs Auto 0.01 X10*3/uL (0.00-0.03); Imm Gran Pct Auto 0.1 % (0.0-0.4); Lymphocytes Absolute Auto 2.5 X10*3/uL (1.2-4.9); Lymphocytes Percent Auto 35.6 % (20-40); Mean Corpuscular HGB Conc 34.7 g/dl (31.0-35.0); Mean Corpuscular Volume 92.3 fL (80.0-98.0); Mean Platelet Volume 10.2 fL (9.4-12.3); Monocytes Absolute Auto 0.5 X10*3/uL (0.1-1.2); Monocytes Percent Auto 7.4 % (2-11); Neutrophils Absolute Auto 3.9 x10*3/uL (2.0-8.3); Neutrophils Percent Auto 54.9 % (45-73); Platelet Count 193 X10*3/uL (160-400); Red Blood Count 3.75 X10*6/uL (4.20-5.50); Red Cell Distribution Width 12.9 % (11.0-16.0); White Blood Count 7.1 X10*3/uL (4.8-10.8)
[2021-01-01 22:25] LABS: Ethanol < 10 mg/dL
[2021-01-01 22:28] LABS: Amphetamine Screen Urine Not Detected (Not Detect); Barbiturates, Urine Not Detected (Not Detect); Benzodiazepines Screen Urine Not Detected (Not Detect); Cannabinoid Screen Urine Not Detected (Not Detect); Cocaine Screen Urine Not Detected (Not Detect); Fentanyl, urine Not Detected (Not Detect); Opiate Screen Urine Not Detected (Not Detect); Phencyclidine Screen Urine Not Detected (Not Detect)
[2021-01-01 22:29] LABS: COVID-19 Test Negative (Negative)
[2021-01-01 22:30] LABS: Anion Gap 8 (12-20); Blood Urea Nitrogen 12 mg/dL (9-16); Calcium 8.3 mg/dL (8.4-10.2); Carbon Dioxide 28 mmol/L (22-29); Chloride 107 mmol/L (96-108); Creatinine Clr Calc Pharmacy 97.5; Estimated Glomerular Filt Rate > 60; Glucose Random 77 mg/dL (60-115); Potassium 3.7 mmol/L (3.3-5.1); Sodium 139 mmol/L (135-145)
--- NOTE | 2021-01-02 01:45 | PC.NURSE ---
report given to m5, pt is waiting for transfer to the unit. pt has been calm and cooperative, needs met at bedside, steady gait. skin pink warm and dry no s/s of distress.
--- NOTE | 2021-01-02 02:16 | PC.ADMIT ---
55 year old female arrived on M5 at 02:15 via wheelchair on a CV from the Emergency Room Pod for auditory hallucinations and worsening depression. Alert, oriented to self, place and situation. History of depression and several psychiatric hospitalizations. Chief complaint, I'm just depressed. Sister reports that patient is socially isolating, has no energy/motivation, has lost of interest in most things, poor ADLs and experienced thoughts of and not wanting to wake up. Notable stressors are the upcoming 3 year anniversary of her mother's and having to move soon as she is temporarily staying with a friend. Patient has been consistently noncompliant with medications for 5 years, has hypersomnia, an increased appetite, frequent bouts of crying, calling out of work and somatic symptoms (GI discomfort and phantom neck pain) per chart. Patient wishes to have the admission interview tomorrow morning as she would prefer going to sleep at this time, however, she is cooperative with current care plan, is able to make needs known and contracts for safety on the unit. Food and beverages offered. Re-oriented to unit. Patient currently denies active HI/SI, intent, plan at this time. Denies AVH and does not appear internally preoccupied. Covid negative, urine toxicology negative. Denies pain/discomfort. Standard safety checks initiated. Orders and medications initiated by provider director of restaurant operations.
[2021-01-02 02:36] VITALS: BP 135/80; PULSE 52; RESP 16; O2SAT 99
--- NOTE | 2021-01-02 08:01 | P.HPPS_ITS ---
HPI Date of Service: 01/02/21 Chief Complaint: Crisis Sources of Information: patient interviewed, chart reviewed and crisis/core team assessment reviewed HPI Subjective Notes: Velazquez Warning and Conditional Voluntary Medical Problems Affecting Mental Status: No Narrative: Penny is a 55-year-old white, woman. This is her 1st psychiatric hospitalization on this unit. She was here a few days ago but was discharged because of a dental Emergency and has returned since having taking care of that. She originally came because of increasing level of depression. She does have history of bipolar disorder and seasonal affective disorder. Her episodes are mostly depressive. The last time she may have had a hypomanic episode was 5-7 years ago. She states that she has been depressed for a long time and the recent isolation because of the COVID crisis has made things worse. 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 She had a falling out and was living with another friend which did not work out and led to her hospitalization recently. She has had suicidal ideations including recently but denies any plans, intent or history of attempts. She does have history of episodic alcohol abuse but has been alcohol-free for little over 3 years. No history of other substance use or abuse. She was hospitalized in the spring of 2020 but stopped her medications soon after discharge. She states that she had gained a lot of w eight and was sedated and felt better off of medications. Her sister has been somewhat pivotal in her treatment and wants her to be back on medications. When she was here few days ago she was put back on Wellbutrin 75 mg. Additionally she used to be on Latuda, Celexa and gabapentin. She has not tolerated Lamictal because of skin reaction, marked elevation of blood sugar on Depakote. Past Psychiatric History: IP: Several: Estimates 10-12 over the past 20-30 years. Most recent June 2020 [facility] OP: None currently. Most recent, [facility] [facility]. and Dr. Nguyen Trials: Latuda, Wellbutrin, Celexa, Gabapentin Denies hx of suicide attempts Medical Evaluation Reviewed: Yes [facility] Medical History (Updated 01/01/21 @ 21:44 by GUIDO Jeter) Alcohol use disorder, severe, in sustained remission, dependence Bipolar disorder current episode depressed Depression Seasonal affective disorder Family History: Unknown Social History: Born and raised in [place]. Both parents are . She has 2 sisters who live in [place] and 1 brother who lives in [place]. She has had no marriages in no children. She does have a place to live after discharge, a shared living house. 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 No current partner No children Substance History: Alcohol but has been alcohol free for over 3 years Trauma History: Affirms Diagnostics Vital Signs (24Hr): Vital Signs - 24 hr 01/01/21 20:32 01/02/21 02:36 Temperature 98.5 F Pulse Rate 53 52 Respiratory Rate 17 16 Blood Pressure 161/67 H 135/80 Pulse Oximetry 100 99 Body Mass Index 24.1 Labs Results: 01/01/21 22:07 01/01/21 22:07 Labs: Laboratory Results - last 48 hr 01/01/21 01/01/21 01/01/21 22:07 22:07 22:07 WBC 7.1 RBC 3.75 L Hgb 12.0 Hct 34.6 L MCV 92.3 MCH 32.0 MCHC 34.7 RDW 12.9 Plt Count 193 MPV 10.2 Immature Gran % (Auto) 0.1 Neut % (Auto) 54.9 Lymph % (Auto) 35.6 [place] % (Auto) 7.4 Eos % (Auto) 1.4 Baso % (Auto) 0.6 Lymph # (Auto) 2.5 [place] # (Auto) 0.5 Eos # (Auto) 0.1 Baso # (Auto) 0.0 Abs Immat Gran (auto) 0.01 Absolute Neuts (auto) 3.9 Absolute Nucleated RBC 0.000 Nucleated RBC % (auto) 0.0 Sodium 139 Potassium 3.7 Chloride 107 Carbon Dioxide 28 Anion Gap 8 L BUN 12 Creatinine 0.60 Estim Creat Clear Calc 97.5 Estimated GFR > 60 Random Glucose 77 Calcium 8.3 L Urine Opiates Screen Urine Fentanyl Screen Ur Barbiturates Screen Ur Phencyclidine Scrn Ur Amphetamines Screen U Benzodiazepines Scrn Urine Cocaine Screen U Marijuana (THC) Screen Ethyl Alcohol COVID-19 ([facility]) Negative COVID-19 Clin Com See Note 01/01/21 01/01/21 22:07 22:07 WBC RBC Hgb Hct MCV MCH MCHC RDW Plt Count MPV Immature Gran % (Auto) Neut % (Auto) Lymph % (Auto) [place] % (Auto) Eos % (Auto) Baso % (Auto) Lymph # (Auto) [place] # (Auto) Eos # (Auto) Baso # (Auto) Abs Immat Gran (auto) Absolute Neuts (auto) Absolute Nucleated RBC Nucleated RBC % (auto) Sodium Potassium Chloride Carbon Dioxide Anion Gap BUN Creatinine Estim Creat Clear Calc Estimated GFR Random Glucose Calcium Urine Opiates Screen Not Detected Urine Fentanyl Screen Not Detected Ur Barbiturates Screen Not Detected Ur Phencyclidine Scrn Not Detected Ur Amphetamines Screen Not Detected U Benzodiazepines Scrn Not Detected Urine Cocaine Screen Not Detected U Marijuana (THC) Screen Not Detected Ethyl Alcohol < 10 COVID-19 ([facility]) COVID-19 Clin Com Meds/Allergies Meds Home Medications Acetaminophen (Acetaminophen 325 Mg Tablet) 650 mg PO Q6H PRN PRN Reason: Headache/Pain Mild Scale (1-3) Al Hydroxide/Mg Hydroxide (Magnesium Hydrox/Alum Hydrox 30 Ml Oral.Susp) 30 ml PO Q6H PRN PRN Reason: Heartburn/Nausea Bupropion HCl (Bupropion Hcl 75 Mg Tablet) 75 mg PO DAILY ANA Folic Acid (Folic Acid 1 Mg Tablet) 1 mg PO DAILY ANA Hydroxyzine HCl (Hydroxyzine Hcl 25 Mg Tablet) 25 mg PO Q6H PRN PRN Reason: Anxiety Magnesium Hydroxide (Milk Of Magnesia 30 Ml Oral.Susp) 30 ml PO DAILY PRN PRN Reason: Constipation Multivitamins/Vitamin C (Multivitamin Tablet) 1 tab PO DAILY [facility] Nicotine Polacrilex (Nicotine Polacrilex 2 Mg Gum) 2 mg BUCCAL Q2H PRN PRN Reason: Nicotine Cravings Pharmacy Consult (Consult Rx Perform Med Rec) 1 each MISCELLANE ONCE PRN PRN Reason: Consult order Trazodone HCl (Trazodone Hcl 50 Mg Tablet) 50 mg PO BEDTIME PRN PRN Reason: Insomnia Allergies Allergies Allergy/AdvReac Type Severity Reaction Status Date / Time lamotrigine [From Lamictal] AdvReac Unknown Unknown Verified 01/01/21 20:31 Mental Status Exam Mental Status Exam Judgement and Insight: Patient was seen the morning after her admission. She is alert, oriented and pleasant. Speech is soft-spoken. Minimal eye contact. Affect is appropriate and constricted. Moderate depression present. No signs of psychosis. Admits to passive suicidal ideations. No homicidal ideations. Cognitively intact. Judgment is intact Assessment & Plan Assessment & Plan (1) Bipolar disorder current episode depressed: Status: Acute Qualifiers: Current episode severity: severe Psychotic features: with psychotic features Qualified Code(s): F31.5 - Bipolar disorder, current episode depressed, severe, with psychotic features Code(s): F31.30 - Bipolar disorder, current episode depressed, mild or moderate severity, unspecified (2) Seasonal affective disorder: Status: Acute Code(s): F33.8 - Other recurrent depressive disorders Assessment and Plan: She meets the criteria for hospitalization in light of her ongoing severe depression. She has restarted Wellbutrin. We discussed maybe increasing it but she would like to wait and talk to Juliane Gomez whom she had worked with when she was here a couple of days ago. An outpatient referral to be made prior todischarge Patient educated on: diagnosis and medication risk/benefits Reason for continued inpatient stay Substantial Risk for: harm to self and other
[2021-01-02] MEDS: buPROPion HCL 75 MG TABLET PO (08:56)
[2021-01-02] MEDS: Multivitamin TABLET 1 TAB PO (08:56)
[2021-01-02] MEDS: Folic Acid 1 MG TABLET PO (08:56)
[2021-01-02 20:00] VITALS: BP 159/80; PULSE 50; RESP 16; TEMP 36.5; O2SAT 100
[2021-01-02 22:35] VITALS: BP 155/82; PULSE 43
[2021-01-03 06:00] VITALS: BP 140/82; PULSE 55; TEMP 36.9; O2SAT 98
[2021-01-03] MEDS: Multivitamin TABLET 1 TAB PO (07:49)
[2021-01-03] MEDS: buPROPion HCL 75 MG TABLET PO (07:49)
[2021-01-03] MEDS: Folic Acid 1 MG TABLET PO (07:49)
--- NOTE | 2021-01-03 07:56 | HO.PSYCHPN ---
Subjective Subjective Date of Service: 01/03/21 Reason For Visit: Crisis Subjective Notes: Conditional Voluntary Medical Problems Affecting Mental Status: No Interim History: Patient was seen in rounds today. She continued to be quite anxious and fearful. She has been talking about the auditory hallucinations with the staff. She tried to take the Risperdal that was ordered yesterday but she became fearful because of the voices being threatening in nature and telling her not to take the medications she als has been anxious about her job and not knowing what to do about it. Again I talked about denies having had them previous to about a week ago. She states that they are not her own voice. She did sleep. Low confused at times. I encouraged her to try to take the medicine and she states that she will Medication Compliance: No Attending Groups: No Review of Systems Acute medical concerns: No Review of Systems Review of Systems Yes all other systems are reviewed and are negative Mental Status Exam Mental Status Exam Narrative: In today's visit she is alert, oriented and cooperative. Speech is soft-spoken. Little eye contact. Affect is appropriate and constricted. She does not appear to be responding to internal stimuli but admits to auditory hallucinations that are threatening. She denies any visual hallucinations. Cognitively she has slow thought processes. Judgment is marginally intact secondary to her mental status Diagnostics Vital Signs (24Hr): Vital Signs - 24 hr 01/02/21 20:00 01/02/21 22:35 01/03/21 06:00 Temperature 97.7 F 98.5 F Pulse Rate 50 43 L 55 Respiratory Rate 16 Blood Pressure 159/80 H 155/82 H 140/82 H Pulse Oximetry 100 98 Body Mass Index 24.1 Labs Results: 01/01/21 22:07 01/01/21 22:07 Labs: Laboratory Results - last 48 hr 01/01/21 01/01/21 01/01/21 22:07 22:07 22:07 WBC 7.1 RBC 3.75 L Hgb 12.0 Hct 34.6 L MCV 92.3 MCH 32.0 MCHC 34.7 RDW 12.9 Plt Count 193 MPV 10.2 Immature Gran % (Auto) 0.1 Neut % (Auto) 54.9 Lymph % (Auto) 35.6 [place] % (Auto) 7.4 Eos % (Auto) 1.4 Baso % (Auto) 0.6 Lymph # (Auto) 2.5 [place] # (Auto) 0.5 Eos # (Auto) 0.1 Baso # (Auto) 0.0 Abs Immat Gran (auto) 0.01 Absolute Neuts (auto) 3.9 Absolute Nucleated RBC 0.000 Nucleated RBC % (auto) 0.0 Sodium 139 Potassium 3.7 Chloride 107 Carbon Dioxide 28 Anion Gap 8 L BUN 12 Creatinine 0.60 Estim Creat Clear Calc 97.5 Estimated GFR > 60 Random Glucose 77 Calcium 8.3 L Urine Opiates Screen Urine Fentanyl Screen Ur Barbiturates Screen Ur Phencyclidine Scrn Ur Amphetamines Screen U Benzodiazepines Scrn Urine Cocaine Screen U Marijuana (THC) Screen Ethyl Alcohol COVID-19 ([facility]) Negative COVID-19 Clin Com See Note 01/01/21 01/01/21 22:07 22:07 WBC RBC Hgb Hct MCV MCH MCHC RDW Plt Count MPV Immature Gran % (Auto) Neut % (Auto) Lymph % (Auto) [place] % (Auto) Eos % (Auto) Baso % (Auto) Lymph # (Auto) [place] # (Auto) Eos # (Auto) Baso # (Auto) Abs Immat Gran (auto) Absolute Neuts (auto) Absolute Nucleated RBC Nucleated RBC % (auto) Sodium Potassium Chloride Carbon Dioxide Anion Gap BUN Creatinine Estim Creat Clear Calc Estimated GFR Random Glucose Calcium Urine Opiates Screen Not Detected Urine Fentanyl Screen Not Detected Ur Barbiturates Screen Not Detected Ur Phencyclidine Scrn Not Detected Ur Amphetamines Screen Not Detected U Benzodiazepines Scrn Not Detected Urine Cocaine Screen Not Detected U Marijuana (THC) Screen Not Detected Ethyl Alcohol < 10 COVID-19 ([facility]) COVID-19 Clin Com Medications Medications Current Medications Acetaminophen (Acetaminophen 325 Mg Tablet) 650 mg PO Q6H PRN PRN Reason: Headache/Pain Mild Scale (1-3) Al Hydroxide/Mg Hydroxide (Magnesium Hydrox/Alum Hydrox 30 Ml Oral.Susp) 30 ml PO Q6H PRN PRN Reason: Heartburn/Nausea Bupropion HCl (Bupropion Hcl 75 Mg Tablet) 75 mg PO DAILY [facility] Last Admin: 01/03/21 07:49 Dose: 75 mg Documented by: Folic Acid (Folic Acid 1 Mg Tablet) 1 mg PO DAILY [facility] Last Admin: 01/03/21 07:49 Dose: 1 mg Documented by: Hydroxyzine HCl (Hydroxyzine Hcl 25 Mg Tablet) 25 mg PO Q6H PRN PRN Reason: Anxiety Magnesium Hydroxide (Milk Of Magnesia 30 Ml Oral.Susp) 30 ml PO DAILY PRN PRN Reason: Constipation Multivitamins/Vitamin C (Multivitamin Tablet) 1 tab PO DAILY [facility] Last Admin: 01/03/21 07:49 Dose: 1 tab Documented by: Nicotine Polacrilex (Nicotine Polacrilex 2 Mg Gum) 2 mg BUCCAL Q2H PRN PRN Reason: Nicotine Cravings Pharmacy Consult (Consult Rx Perform Med Rec) 1 each MISCELLANE ONCE PRN PRN Reason: Consult order Risperidone (Risperidone 0.5 Mg Tablet) 0.5 mg PO BID [facility] Last Admin: 01/02/21 20:15 Dose: Not Given Documented by: Trazodone HCl (Trazodone Hcl 50 Mg Tablet) 50 mg PO BEDTIME PRN PRN Reason: Insomnia Allergies Allergies Allergy/AdvReac Type Severity Reaction Status Date / Time lamotrigine [From Lamictal] AdvReac Unknown Unknown Verified 01/01/21 20:31 Assessment & Plan Assessment & Plan (1) Bipolar disorder current episode depressed: Qualifiers: Current episode severity: severe Psychotic features: with psychotic features Qualified Code(s): F31.5 - Bipolar disorder, current episode depressed, severe, with psychotic features Status: Acute Code(s): F31.30 - Bipolar disorder, current episode depressed, mild or moderate severity, unspecified (2) Seasonal affective disorder: Status: Acute Code(s): F33.8 - Other recurrent depressive disorders Assessment and Plan: She meets the criteria for hospitalization in light of her ongoing severe depression. She has restarted Wellbutrin. We discussed maybe increasing it but she would like to wait and talk to Juliane Gomez whom she had worked with when she was here a couple of days ago. An outpatient referral to be made prior todischarge 01/03/2021 continue to encourage medication compliance I spent minutes with the patient and/or on the patient floor today, greater than?50% of which was spent counseling/coordinating care. Reason for contiued inpatient stay Substantial Risk for: other
[2021-01-03 07:58] LABS: Cholesterol 240 mg/dL; HDL Cholesterol 51 mg/dL; LDL Cholesterol Calculated 160 mg/dl; Triglycerides 147 mg/dL
[2021-01-03 08:18] LABS: Thyroid Stimulating Hormone 0.96 uIU/mL (0.32-4.0)
[2021-01-03] MEDS: risperiDONE 0.5 MG TABLET PO ×2 (08:34→21:31)
[2021-01-03 19:48] VITALS: BP 114/59; PULSE 74; RESP 16; TEMP 37; O2SAT 99
[2021-01-04 06:00] VITALS: BP 104/64; PULSE 62; RESP 16; TEMP 36.9
[2021-01-04 07:33] LABS: Estimated Average Glucose 77 mg/dL; Hemoglobin A1c % 4.3 %
[2021-01-04 09:45] LABS: Folate 13.6 ng/mL (> or = 4.0); Vitamin B12 351 pg/mL (200-900)
--- NOTE | 2021-01-04 17:40 | HO.PSYCHPN ---
Subjective Subjective Date of Service: 01/04/21 Reason For Visit: Crisis Subjective Notes: Conditional Voluntary and 3 Day Healthcare Proxy: No Guardianship: No Medical Problems Affecting Mental Status: No Interim History: Refusing medications. Discussed with pt her plan for treatment Asks for referral for 12 step focused psychotherapy Discussed issues with work, issues with school-thesis due Jan 2021. Discussed making a mistake in leaving family she lived with in June 2020, having no friends, now moving to an unknown place, fighting just to do ADL's, feeling hopeless, helpless, with SI, but also with resistance, like I don't want to help myself. Agrees to Ferrous Sulfate supplement. Agrees to Wellbutrin. Agrees to Geodon trial. Three day notice in place. Medication Compliance: No Side effects from medications: No Attending Groups: Intermittent Review of Systems Acute medical concerns: No Medical Review of Systems: unchanged Review of Systems Psychiatric: Reports anxiety, Reports depression, Reports difficulty concentrating, Reports hopelessness, Reports irritability, Reports paranoia and Reports suicidal ideation Mental Status Exam Mental Status Exam Patient Appearance: Disheveled Patient Orientation: Person, Place, Time and Situation Level of Consciousness: Alert Patient Behavior: Talkative, Anxious and Crying Mood Description: Depressed and Anxious Affect Description: Flat Patient Cognition Impaired: No Speech Pattern: Spontaneous Speech Memory Description: Intact Hallucinations: None Delusions: Not Present Thought Process: Distracted and Rumination Thought Content: positive for [place], positive for Circumstantial and positive for Suicidal Ideation Depressive Symptoms: Increased Anxiety, Diff. Making Decisions, Increased Irritability, Difficulty Sleeping, Changes in Appetite, Loss of Int. in Activity, Feelings of Worthlessness, Hopelessness, Isolating-Friends/Family, Unhappiness, Increased Fatigue, Low Self Esteem, Loss of Energy and Difficulty Concentrating Abnormal Motor Activity Signs and Symptoms: Restlessness Judgement: Fair Diagnostics Vital Signs (24Hr): Vital Signs - 24 hr 01/03/21 19:48 01/04/21 06:00 Temperature 98.6 F 98.4 F Pulse Rate 74 62 Respiratory Rate 16 16 Blood Pressure 114/59 L 104/64 Pulse Oximetry 99 Body Mass Index 24.1 Labs Results: 01/01/21 22:07 01/01/21 22:07 Labs: Laboratory Results - last 48 hr 01/03/21 01/03/21 01/03/21 07:29 07:29 07:29 Estimat Average Glucose 77 Hemoglobin A1c % 4.3 Triglycerides 147 Cholesterol 240 LDL Cholesterol, Calc 160 HDL Cholesterol 51 Vitamin B12 351 Folate 13.6 TSH 0.96 Medications Medications Current Medications Acetaminophen (Acetaminophen 325 Mg Tablet) 650 mg PO Q6H PRN PRN Reason: Headache/Pain Mild Scale (1-3) Al Hydroxide/Mg Hydroxide (Magnesium Hydrox/Alum Hydrox 30 Ml Oral.Susp) 30 ml PO Q6H PRN PRN Reason: Heartburn/Nausea Benztropine Mesylate (Benztropine Mesylate 1 Mg Tablet) 1 mg PO TID PRN PRN Reason: Extrapyramidal Effects Bupropion HCl (Bupropion Hcl 75 Mg Tablet) 75 mg PO DAILY [facility] Last Admin: 01/04/21 12:06 Dose: Not Given Documented by: Folic Acid (Folic Acid 1 Mg Tablet) 1 mg PO DAILY [facility] Last Admin: 01/04/21 12:06 Dose: Not Given Documented by: Hydroxyzine HCl (Hydroxyzine Hcl 25 Mg Tablet) 25 mg PO Q6H PRN PRN Reason: Anxiety Magnesium Hydroxide (Milk Of Magnesia 30 Ml Oral.Susp) 30 ml PO DAILY PRN PRN Reason: Constipation Multivitamins/Vitamin C (Multivitamin Tablet) 1 tab PO DAILY [facility] Last Admin: 01/04/21 12:06 Dose: Not Given Documented by: Nicotine Polacrilex (Nicotine Polacrilex 2 Mg Gum) 2 mg BUCCAL Q2H PRN PRN Reason: Nicotine Cravings Pharmacy Consult (Consult Rx Perform Med Rec) 1 each MISCELLANE ONCE PRN PRN Reason: Consult order Risperidone (Risperidone 0.5 Mg Tablet) 0.5 mg PO BID [facility] Last Admin: 01/04/21 12:06 Dose: Not Given Documented by: Trazodone HCl (Trazodone Hcl 50 Mg Tablet) 50 mg PO BEDTIME PRN PRN Reason: Insomnia Allergies Allergies Allergy/AdvReac Type Severity Reaction Status Date / Time lamotrigine [From Lamictal] AdvReac Unknown Unknown Verified 01/01/21 20:31 Assessment & Plan Assessment & Plan (1) Bipolar disorder current episode depressed: Qualifiers: Current episode severity: severe Psychotic features: with psychotic features Qualified Code(s): F31.5 - Bipolar disorder, current episode depressed, severe, with psychotic features Status: Acute Code(s): F31.30 - Bipolar disorder, current episode depressed, mild or moderate severity, unspecified (2) Seasonal affective disorder: Status: Acute Code(s): F33.8 - Other recurrent depressive disorders Assessment and Plan: Ambivalent about several aspects of her life due to current depressive symptoms. Agrees with Wellbutrin, although did not take it this a.m. Agrees to Shane zhang, 20 mg hs to begin tonight Ferrous Sulfate daily. Will draft a letter regarding admission to her employer who has requested this. Pt is ambivalent about treatment, has signed a three day notice of intent Thesis due Jan 2021. I have asked her to allow tw to draft a letter, asking for more time, so she may make a decision when feeling improved about leaving her program. She will consider. I spent 45 minutes with the patient and/or on the patient floor today, greater than?50% of which was spent counseling/coordinating care. Patient educated on: diagnosis, medication risk/benefits, substance abuse and therapeutic strategies Informed Consent: understands and further education needed Reason for contiued inpatient stay Substantial Risk for: harm to self, inability to function and rapid decompensation
[2021-01-04 22:10] VITALS: BP 146/89; TEMP 36.4; O2SAT 98
[2021-01-05 06:27] VITALS: BP 138/73; PULSE 53; RESP 16; TEMP 36.4; O2SAT 98
--- NOTE | 2021-01-05 15:26 | P.PNPSI_ITS ---
Subjective Subjective Date of Service: 01/05/21 Reason For Visit: Crisis Subjective Notes: Conditional Voluntary and 3 Day Healthcare Proxy: No Guardianship: No Medical Problems Affecting Mental Status: No Interim History: Pt took meds, then told team she was cheeking . Discussed-pt not wanting to take meds. Feeling family pressure to take meds. TDN effective 01/07. Pt ambivalent about what to do with current circumstances. Letter written for pt's employer. She states she needs to just pull myself up by the bootstraps, focus and finish my thesis. Discussed with pt needing support if she will discharge without being treated. Encouraged her to reach out to family in [place] as she identifies sister Yarelis as her only trusted support. Medication Compliance: No Side effects from medications: No Attending Groups: No Review of Systems Acute medical concerns: No Medical Review of Systems: unchanged Review of Systems Reports behavioral changes and Reports memory loss Psychiatric: Reports abnormal sleep pattern, Reports anxiety, Reports behavioral changes, Reports change in appetite, Reports depression, Reports difficulty concentrating, Reports auditory hallucinations, Reports hopelessness, Reports irritability, Reports anhedonia, Reports memory loss, Reports mood swings, Reports paranoia and Reports suicidal ideation Mental Status Exam Mental Status Exam Patient Appearance: Fatigued Patient Orientation: Person, Place, Time and Situation Level of Consciousness: Awake Patient Behavior: Guarded, Talkative, Suspicious, Restless, Anxious, Fearful, Resistive to Care, Avoidant, Fatigued, Distractible, Isolative, Crying and Poor Eye Contact Mood Description: Depressed and Labile Affect Description: Labile Patient Cognition Impaired: No Ability to Follow Directions: Good Speech Pattern: Spontaneous Speech and Soft-Spoken Memory Description: Episodic Impaired Hallucinations: Auditory (It appears so, however pt denies) Delusions: Paranoid Ideation Perceptual Disturbances: Depersonalization and Derealization Thought Process: Distracted and Rumination Thought Content: positive for [place], positive for Circumstantial, positive for Poverty of Content, positive for Thought Blocking and positive for Suicidal Ideation Depressive Symptoms: Increased Anxiety, Insomnia, Diff. Making Decisions, Increased Irritability, Difficulty Sleeping, Changes in Appetite, Crying Spells, Significant Weight Loss, Loss of Int. in Activity, Feelings of Worthlessness, Hopelessness, Isolating-Friends/Family, Feelings of Guilt, Unhappiness, Increase d Fatigue, Thoughts of /Suicide, Low Self Esteem, Loss of Energy and Difficulty Concentrating Abnormal Motor Activity Signs and Symptoms: Restlessness Judgement: Poor Diagnostics Vital Signs (24Hr): Vital Signs - 24 hr 01/04/21 22:10 01/05/21 06:27 Temperature 97.6 F 97.6 F Pulse Rate 53 Respiratory Rate 16 Blood Pressure 146/89 H 138/73 Pulse Oximetry 98 98 Body Mass Index 24.1 Labs Results: 01/01/21 22:07 01/01/21 22:07 Labs: Laboratory Results - last 48 hr 01/03/21 01/03/21 07:29 07:29 Estimat Average Glucose 77 Hemoglobin A1c % 4.3 Vitamin B12 351 Folate 13.6 Medications Medications Current Medications Acetaminophen (Acetaminophen 325 Mg Tablet) 650 mg PO Q6H PRN PRN Reason: Headache/Pain Mild Scale (1-3) Al Hydroxide/Mg Hydroxide (Magnesium Hydrox/Alum Hydrox 30 Ml Oral.Susp) 30 ml PO Q6H PRN PRN Reason: Heartburn/Nausea Ferrous Sulfate (Ferrous Sulfate 324 Mg Tablet.Dr) 324 mg PO DAILY [facility] Last Admin: 01/05/21 10:52 Dose: Not Given Documented by: Folic Acid (Folic Acid 1 Mg Tablet) 1 mg PO DAILY [facility] Last Admin: 01/05/21 10:52 Dose: Not Given Documented by: Hydroxyzine HCl (Hydroxyzine Hcl 25 Mg Tablet) 25 mg PO Q6H PRN PRN Reason: Anxiety Magnesium Hydroxide (Milk Of Magnesia 30 Ml Oral.Susp) 30 ml PO DAILY PRN PRN Reason: Constipation Multivitamins/Vitamin C (Multivitamin Tablet) 1 tab PO DAILY [facility] Last Admin: 01/05/21 10:52 Dose: Not Given Documented by: Nicotine Polacrilex (Nicotine Polacrilex 2 Mg Gum) 2 mg BUCCAL Q2H PRN PRN Reason: Nicotine Cravings Pharmacy Consult (Consult Rx Perform Med Rec) 1 each MISCELLANE ONCE PRN PRN Reason: Consult order Trazodone HCl (Trazodone Hcl 50 Mg Tablet) 50 mg PO BEDTIME PRN PRN Reason: Insomnia Ziprasidone (Ziprasidone 20 Mg Capsule) 20 mg PO DAILY@1700 [facility] Last Admin: 01/04/21 22:27 Dose: Not Given Documented by: Allergies Allergies Allergy/AdvReac Type Severity Reaction Status Date / Time lamotrigine [From Lamictal] AdvReac Unknown Unknown Verified 01/01/21 20:31 Assessment & Plan Assessment & Plan (1) Bipolar disorder current episode depressed: Qualifiers: Current episode severity: severe Psychotic features: with psychotic features Qualified Code(s): F31.5 - Bipolar disorder, current episode depr essed, severe, with psychotic features Status: Acute Code(s): F31.30 - Bipolar disorder, current episode depressed, mild or moderate severity, unspecified (2) Seasonal affective disorder: Status: Acute Code(s): F33.8 - Other recurrent depressive disorders Assessment and Plan: Ambivalent about several aspects of her life due to current depressive symptoms. Agrees with Wellbutrin, although did not take it this a.m. Agrees to Shane zhang, 20 mg hs to begin tonight Ferrous Sulfate daily. Will draft a letter regarding admission to her employer who has requested this. Pt is ambivalent about treatment, has signed a three day notice of intent Thesis due Jan 2021. I have asked her to allow tw to draft a letter, asking for more time, so she may make a decision when feeling improved about leaving her program. She will consider. 01/05/21-Has declined medication. Three day notice to 01/07. Will continue to encourage treatment. I spent 45 minutes with the patient and/or on the patient floor today, greater than?50% of which was spent counseling/coordinating care. Patient educated on: diagnosis, medication risk/benefits and therapeutic strategies Informed Consent: further education needed Reason for contiued inpatient stay Substantial Risk for: harm to self, inability to function and rapid decompensation
[2021-01-05] MEDS: Ziprasidone 20 MG CAPSULE PO (16:52)
[2021-01-05 18:00] VITALS: BP 129/70; PULSE 56; RESP 16; TEMP 37
[2021-01-06 06:00] VITALS: BP 131/74; PULSE 59; TEMP 36.1; O2SAT 100
[2021-01-06] MEDS: Ferrous Sulfate 324 MG TABLET.DR PO (08:20)
[2021-01-06] MEDS: Folic Acid 1 MG TABLET PO (08:20)
[2021-01-06] MEDS: Multivitamin TABLET 1 TAB PO (08:20)
--- NOTE | 2021-01-06 17:25 | P.PNPSI_ITS ---
Subjective Subjective Date of Service: 01/06/21 Reason For Visit: Crisis Subjective Notes: Conditional Voluntary and 3 Day Healthcare Proxy: No Guardianship: No Medical Problems Affecting Mental Status: No Interim History: A very difficult day. TDN to 01/07. Awake during the night pacing-did take Geodon 20 mg it did nothing . Discussed in team- family reports to Naomi Crum JUAN pt has struggled for the past 8 years-she went home 4 years ago and upon arrival, disappeared-was found in hotel. Since TBI she has had a theme that people are after her with increases in paranoia and fear. Family reports she sold her home secondary to paranoia. Pt left living situation in June after sister of cancer as the woman she had been helping to care for had cancer as well. Family reports significant wt loss of 50+ lbs. In milieu, pt attended activity group-attempted to make a bracelet. She asked to keep a long extension of cord-when denied due to safety concerns she became agit ated-kicking the wall, pacing, head banging with great difficulty verbalizing what was occurring to cause agitation. She quieted, declined medication, and appeared to calm as the day progressed, ?dissociative response. We discussed with pt concerns about TDN. She asked tw for immediate discharge which was denied. With collateral contact from family it was decided pt is not safe to discharge on TDN. Discussed with pt that we would file for civil commitment. Given legal resource numbers/information. Discussed plan of treatment. Pt, in reflection this evening reports minimal memory of this mornings episode of agitation and conflict. She reports currently she is NOT being threatened in community or in relationship. She received assistance to send the letter written yesterday to send to her employer informing them of her admission. She discussed medications. Agreed to increase Geodon to 40 mg and continue trial. She will consider TDN retraction for 01/07. Medication Compliance: No Side effects from medications: No Attending Groups: Intermittent Review of Systems Acute medical concerns: No Medical Review of Systems: unchanged Review of Systems Reports behavioral changes, Reports confusion and Reports memory loss Psychiatric: Reports abnormal sleep pattern, Reports anxiety, Reports behavioral changes, Reports change in appetite, Reports confusion, Reports depression, Reports difficulty concentrating, Reports auditory hallucinations, Reports hopelessness, Reports irritability, Reports anhedonia, Reports memory loss, Reports mood swings, Reports paranoia and Reports suicidal ideation Mental Status Exam Mental Status Exam Patient Appearance: Fatigued Patient Orientation: Person, Place, Time and Situation Level of Consciousness: Awake, Restless, Alert and Combative Patient Behavior: Guarded, Talkative, Cooperative, Suspicious, Aggressive, Restless, Wandering, Anxious, Fearful, Resistive to Care, Avoidant, Combative, Fatigued, Distractible, Isolative, Crying, Uncooperative, Impulsive, Pacing and Poor Eye Contact Mood Description: Suspicious, Withdrawn, Constricted, Depressed, Fearful, Hostile, Anxious, Labile, Angry, Sad, Nervous and Apprehensive Affect Description: Labile Patient Cognition Impaired: Yes Ability to Follow Directions: Good Speech Pattern: Perseverating, Impoverished, Difficulty Finding Words, Monotone, Spontaneous Speech, Soft-Spoken and Long Pauses Memory Description: Episodic Impaired Hallucinations: Auditory Delusions: Paranoid Ideation and Present Perceptual Disturbances: Depersonalization, Derealization and Hallucinations Thought Process: Illogical, Distracted and Rumination Thought Content: positive for Circumstantial, positive for Perseveration, positive for Preoccupation, positive for Thought Blocking and positive for Diaz icidal Ideation Depressive Symptoms: Increased Anxiety, Insomnia, Diff. Making Decisions, Increased Irritability, Difficulty Sleeping, Changes in Appetite, Crying Spells, Significant Weight Loss, Loss of Int. in Activity, Feelings of Worthlessness, Hopelessness, Isolating-Friends/Family, Feelings of Guilt, Unhappiness, Increased Fatigue, Thoughts of /Suicide, Low Self Esteem, Loss of Energy and Difficulty Concentrating Abnormal Motor Activity Signs and Symptoms: Aggression, Agitation and Restlessness Judgement: Poor Diagnostics Vital Signs (24Hr): Vital Signs - 24 hr 01/05/21 18:00 01/06/21 06:00 Temperature 98.6 F 97.0 F Pulse Rate 56 59 Respiratory Rate 16 Blood Pressure 129/70 131/74 Pulse Oximetry 100 Body Mass Index 24.1 Labs Results: 01/01/21 22:07 01/01/21 22:07 Medications Medications Current Medications Acetaminophen (Acetaminophen 325 Mg Tablet) 650 mg PO Q6H PRN PRN Reason: Headache/Pain Mild Scale (1-3) Al Hydroxide/Mg Hydroxide (Magnesium Hydrox/Alum Hydrox 30 Ml Oral.Susp) 30 ml PO Q6H PRN PRN Reason: Heartburn/Nausea Ferrous Sulfate (Ferrous Sulfate 324 Mg Tablet.) 324 mg PO DAILY [facility] Last Admin: 01/06/21 08:20 Dose: 324 mg Documented by: Folic Acid (Folic Acid 1 Mg Tablet) 1 mg PO DAILY [facility] Last Admin: 01/06/21 08:20 Dose: 1 mg Documented by: Haloperidol (Haloperidol 5 Mg Tablet) 5 mg PO BID PRN PRN Reason: agitation,violence Hydroxyzine HCl (Hydroxyzine Hcl 25 Mg Tablet) 25 mg PO Q6H PRN PRN Reason: Anxiety Lorazepam (Lorazepam 1 Mg Tablet) 1 mg PO Q6H PRN PRN Reason: agiation, violence Magnesium Hydroxide (Milk Of Magnesia 30 Ml Oral.Susp) 30 ml PO DAILY PRN PRN Reason: Constipation Multivitamins/Vitamin C (Multivitamin Tablet) 1 tab PO DAILY [facility] [place] Last Admin: 01/06/21 08:20 Dose: 1 tab Documented by: Nicotine Polacrilex (Nicotine Polacrilex 2 Mg Gum) 2 mg BUCCAL Q2H PRN PRN Reason: Nicotine Cravings Pharmacy Consult (Consult Rx Perform Med Rec) 1 each MISCELLANE ONCE PRN PRN Reason: Consult order Trazodone HCl (Trazodone Hcl 50 Mg Tablet) 50 mg PO BEDTIME PRN PRN Reason: Insomnia Ziprasidone (Ziprasidone 40 Mg Capsule) 40 mg PO DAILY@1700 [facility] Allergies Allergies Allergy/AdvReac Type Severity Reaction Status Date / Time lamotrigine [From Lamictal] AdvReac Unknown Unknown Verified 01/01/21 20:31 Assessment & Plan Assessment & Plan (1) Bipolar disorder current episode depressed: Qualifiers: Current episode severity: severe Psychotic features: with psychotic features Qualified Code(s): F31.5 - Bipolar disorder, current episode depressed, severe, with psychotic features Status: Acute Code(s): F31.30 - Bipolar disorder, current episode depressed, mild or moderate severity, unspecified (2) Seasonal affective disorder: Status: Acute Code(s): F33.8 - Other recurrent depressive disorders Assessment and Plan: Ambivalent about several aspects of her life due to current depressive symptoms. Agrees with Wellbutrin, although did not take it this a.m. Agrees to Shane trial, 20 mg hs to begin tonight Ferrous Sulfate daily. Will draft a letter regarding admission to her employer who has requested this. Pt is ambivalent about treatment, has signed a three day notice of intent Thesis due Jan 2021. I have asked her to allow tw to draft a letter, asking for more time, so she may make a decision when feeling improved about leaving her program. She will consider. 01/06/21: Increase Geodon to 40 mg HS. Will file civil commitment on 01/07 should pt not retract TDN. She will give some thought to this and consult with legal advocate services. I spent 120 minutes with the patient and/or on the patient floor today, greater than?50% of which was spent counseling/coordinating care. Patient educated on: medication risk/benefits and therapeutic strategies Informed Consent: further education needed Reason for contiued inpatient stay Substantial Risk for: harm to self, inability to function and rapid decompensation
[2021-01-06 18:00] VITALS: BP 140/84; PULSE 70; RESP 20; TEMP 36.1; O2SAT 100
[2021-01-06] MEDS: Ziprasidone 40 MG CAPSULE PO (18:08)
[2021-01-07 07:00] VITALS: BMI 24.0
[2021-01-07] MEDS: Multivitamin TABLET 1 TAB PO (08:33)
[2021-01-07] MEDS: Folic Acid 1 MG TABLET PO (08:33)
--- NOTE | 2021-01-07 14:47 | HO.PSYCHPN ---
Subjective Subjective Date of Service: 01/07/21 Reason For Visit: Crisis Subjective Notes: 3 Day Healthcare Proxy: No Guardianship: No Medical Problems Affecting Mental Status: No Interim History: Retraction of TDN. Agrees to take medication, titrate Geodon, trial Lexapro. Calmer, did talk with legal help line and believes questions were answered. Several stressors-do I return to work, do I take this new apartment in January, do I postpone my thesis presentation, do I just plan to move back to [place]. Pt speaking with family in [place] a few times a day-finding them helpful and grounding. Medication Compliance: Yes Side effects from medications: No Attending Groups: Intermittent Review of Systems Acute medical concerns: No Medical Review of Systems: unchanged Review of Systems Reports behavioral changes, Reports confusion and Reports memory loss Psychiatric: Reports abnormal sleep pattern, Reports anxiety, Reports behavioral changes, Reports change in appetite, Reports confusion, Reports depression, Reports difficulty concentrating, Reports auditory hallucinations, Reports hopelessness, Reports irritability, Reports anhedonia, Reports memory loss, Reports mood swings, Reports paranoia and Reports suicidal ideation Mental Status Exam Mental Status Exam Patient Appearance: Appropriate Patient Orientation: Person, Place, Time and Situation Level of Consciousness: Awake, Restless and Alert Patient Behavior: Talkative Mood Description: Depressed and Anxious Affect Description: Labile Patient Cognition Impaired: Yes Ability to Follow Directions: Good Speech Pattern: Spontaneous Speech Memory Description: Remote Impaired and Episodic Impaired Hallucinations: None (denies) Delusions: Paranoid Ideation Perceptual Disturbances: Depersonalization and Derealization Thought Process: Distracted and Rumination Thought Content: positive for [place] and positive for Circumstantial Depressive Symptoms: Increased Anxiety, Diff. Making Decisions, Increased Irritability, Difficulty Sleeping, Changes in Appetite, Loss of Int. in Activity, Feelings of Worthlessness, Hopelessness, Isolating-Friends/Family, Feelings of Guilt, Unhappiness, Increased Fatigue, Thoughts of /Suicide, Low Self Esteem, Loss of Energy and Difficulty Concentrating Abnormal Motor Activity Signs and Symptoms: Restlessness Judgement: Fair Diagnostics Vital Signs (24Hr): Vital Signs - 24 hr 01/06/21 18:00 Temperature 96.9 F Pulse Rate 70 Respiratory Rate 20 Blood Pressure 140/84 H Pulse Oximetry 100 Body Mass Index 24.1 Labs Results: 01/01/21 22:07 01/01/21 22:07 Medications Medications Current Medications Acetaminophen (Acetaminophen 325 Mg Tablet) 650 mg PO Q6H PRN PRN Reason: Headache/Pain Mild Scale (1-3) Al Hydroxide/Mg Hydroxide (Magnesium Hydrox/Alum Hydrox 30 Ml Oral.Susp) 30 ml PO Q6H PRN PRN Reason: Heartburn/Nausea Ferrous Sulfate (Ferrous Sulfate 324 Mg Tablet.) 324 mg PO DAILY [facility] Last Admin: 01/07/21 08:54 Dose: Not Given Documented by: Folic Acid (Folic Acid 1 Mg Tablet) 1 mg PO DAILY [facility] Last Admin: 01/07/21 08:33 Dose: 1 mg Documented by: Haloperidol (Haloperidol 5 Mg Tablet) 5 mg PO BID PRN PRN Reason: agitation,violence Hydroxyzine HCl (Hydroxyzine Hcl 25 Mg Tablet) 25 mg PO Q6H PRN PRN Reason: Anxiety Lorazepam (Lorazepam 1 Mg Tablet) 1 mg PO Q6H PRN PRN Reason: agiation, violence Magnesium Hydroxide (Milk Of Magnesia 30 Ml Oral.Susp) 30 ml PO DAILY PRN PRN Reason: Constipation Multivitamins/Vitamin C (Multivitamin Tablet) 1 tab PO DAILY [facility] Last Admin: 01/07/21 08:33 Dose: 1 tab Documented by: Nicotine Polacrilex (Nicotine Polacrilex 2 Mg Gum) 2 mg BUCCAL Q2H PRN PRN Reason: Nicotine Cravings Pharmacy Consult (Consult Rx Perform Med Rec) 1 each MISCELLANE ONCE PRN PRN Reason: Consult order Trazodone HCl (Trazodone Hcl 50 Mg Tablet) 50 mg PO BEDTIME PRN PRN Reason: Insomnia Ziprasidone (Ziprasidone 40 Mg Capsule) 40 mg PO DAILY@1700 [facility] Last Admin: 01/06/21 18:08 Dose: 40 mg Documented by: Allergies Allergies Allergy/AdvReac Type Severity Reaction Status Date / Time lamotrigine [From Lamictal] AdvReac Unknown Unknown Verified 01/01/21 20:31 Assessment & Plan Assessment & Plan (1) Bipolar disorder current episode depressed: Qualifiers: Current episode severity: severe Psychotic features: with psychotic features Qualified Code(s): F31.5 - Bipolar disorder, current episode depressed, severe, with psychotic features Status: Acute Code(s): F31.30 - Bipolar disorder, current episode depressed, mild or moderate severity, unspecified (2) Seasonal affective disorder: Status: Acute Code(s): F33.8 - Other recurrent depressive disorders Assessment and Plan: Ambivalent about several aspects of her life due to current depressive symptoms. Agrees with Wellbutrin, although did not take it this a.m. Agrees to Geodon trial, 20 mg hs to begin tonight Ferrous Sulfate daily. Will draft a letter regarding admission to her employer who has requested this. Pt is ambivalent about treatment, has signed a three day notice of intent Thesis due Jan 2021. I have asked her to allow tw to draft a letter, asking for more time, so she may make a decision when feeling improved about leaving her program. She will consider. 01/06/21: Increase Geodon to 40 mg HS. Will file civil commitment on 01/07 should pt not retract TDN. She will give some thought to this and consult with legal advocate services. 01/07/21 TDN retracted Continue Geodon Lexapro 5 mg daily I spent 40 minutes with the patient and/or on the patient floor today, greater than?50% of which was spent counseling/coordinating care. Patient educated on: medication risk/benefits and therapeutic strategies Informed Consent: further education needed Reason for contiued inpatient stay Substantial Risk for: harm to self, inability to function and rapid decompensation
[2021-01-07 21:24] VITALS: BP 159/81; PULSE 55; RESP 18; TEMP 36.4; O2SAT 99
[2021-01-07] MEDS: Ziprasidone 40 MG CAPSULE PO (22:30)
--- NOTE | 2021-01-07 23:05 | PC.NURSE ---
Patient is alert and oriented x 4, Presents with flat depressed affect and congruent mood. Pt. reports she has been sleeping better more recently, but still not great. Patient reports she does not wish to take Geodon at 5pm as it makes her tired and fall asleep too early and then she wakes up and is awake in the middle of the night. Patient requests to take Geodon at 11pm; administered at 10:30pm.
[2021-01-08 06:05] VITALS: BP 162/82; PULSE 82; RESP 17; TEMP 36.5; O2SAT 98
[2021-01-08] MEDS: Escitalopram Oxalate 5 MG TABLET PO (08:31)
--- NOTE | 2021-01-08 12:34 | PC.NURSE ---
Pt signed a 3-day notice on Monday01/08/21 that ends on Monday01/13/21. MINERVAW, NADINE, aware
--- NOTE | 2021-01-08 17:37 | HO.PSYCHPN ---
Subjective Subjective Date of Service: 01/08/21 Reason For Visit: Crisis Subjective Notes: Conditional Voluntary and 3 Day Healthcare Proxy: No Guardianship: No Medical Problems Affecting Mental Status: No Interim History: TDN filed for 01/13. Pt reports improvement. Able to sleep-but tired in the a.m. (second dosing of Geodon 40 mg). 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 Able to make a direct correlation. Continues with concerns over decisions to make regarding work, school, housing. Spoke with both siblings this afternoon and asking for their input. Pt reports by hx she is a runner (5miles/day) and today was trying to get that in by walking the corridor-feeling energized when she is walking/running. Discussed watching Lexapro to make sure it does not precipitate agitaiton. Medication Compliance: Yes Side effects from medications: Yes (a.m. feeling tired) Attending Groups: Intermittent Review of Systems Acute medical concerns: No Medical Review of Systems: unchanged Review of Systems Reports confusion Psychiatric: Reports abnormal sleep pattern, Reports anxiety, Reports change in appetite, Reports confusion, Reports depression, Reports hopelessness, Reports irritability and Reports suicidal ideation (denies) Mental Status Exam Mental Status Exam Patient Appearance: Appropriate Patient Orientation: Person, Place, Time and Situation Level of Consciousness: Awake and Alert Patient Behavior: Talkative and Good Eye Contact Mood Description: Depressed and Anxious Affect Description: Flat Patient Cognition Impaired: No Ability to Follow Directions: Good Speech Pattern: Spontaneous Speech Memory Description: Episodic Impaired Hallucinations: None Delusions: Not Present Perceptual Disturbances: Depersonalization and Derealization Thought Process: Rumination Thought Content: positive for [place], positive for Circumstantial and positive for Suicidal Ideation (denies) Depressive Symptoms: Increased Anxiety, Insomnia, Diff. Making Decisions, Increased Irritability, Difficulty Sleeping, Changes in Appetite, Significant Weight Loss, Loss of Int. in Activity, Feelings of Worthlessness, Hopelessness, Isolating-Friends/Family, Feelings of Guilt, Unhappiness, Increased Fatigue, Thoughts of /Suicide (denies), Low Self Esteem, Loss of Energy and Difficulty Concentrating Judgement: Fair Diagnostics Vital Signs (24Hr): Vital Signs - 24 hr 01/07/21 21:24 01/08/21 06:05 Temperature 97.5 F 97.7 F Pulse Rate 55 82 Respiratory Rate 18 17 Blood Pressure 159/81 H 162/82 H Pulse Oximetry 99 98 Body Mass Index 24.0 Labs Results: 01/01/21 22:07 01/01/21 22:07 Medications Medications Current Medications Acetaminophen (Acetaminophen 325 Mg Tablet) 650 mg PO Q6H PRN PRN Reason: Headache/Pain Mild Scale (1-3) Al Hydroxide/Mg Hydroxide (Magnesium Hydrox/Alum Hydrox 30 Ml Oral.Susp) 30 ml PO Q6H PRN PRN Reason: Heartburn/Nausea Benztropine Mesylate (Benztropine Mesylate 1 Mg Tablet) 1 mg PO TID PRN PRN Reason: Extrapyramidal Effects Escitalopram Oxalate (Escitalopram Oxalate 5 Mg Tablet) 5 mg PO DAILY [facility] Last Admin: 01/08/21 08:31 Dose: 5 mg Documented by: Ferrous Sulfate (Ferrous Sulfate 324 Mg Tablet.) 324 mg PO DAILY [facility] Last Admin: 01/08/21 08:33 Dose: Not Given Documented by: Folic Acid (Folic Acid 1 Mg Tablet) 1 mg PO DAILY [facility] Last Admin: 01/08/21 08:33 Dose: Not Given Documented by: Haloperidol (Haloperidol 5 Mg Tablet) 5 mg PO BID PRN PRN Reason: agitation,violence Hydroxyzine HCl (Hydroxyzine Hcl 25 Mg Tablet) 25 mg PO Q6H PRN PRN Reason: Anxiety Lorazepam (Lorazepam 1 Mg Tablet) 1 mg PO Q6H PRN PRN Reason: agiation, violence Magnesium Hydroxide (Milk Of Magnesia 30 Ml Oral.Susp) 30 ml PO DAILY PRN PRN Reason: Constipation Multivitamins/Vitamin C (Multivitamin Tablet) 1 tab PO DAILY [facility] Last Admin: 01/08/21 08:33 Dose: Not Given Documented by: Nicotine Polacrilex (Nicotine Polacrilex 2 Mg Gum) 2 mg BUCCAL Q2H PRN PRN Reason: Nicotine Cravings Pharmacy Consult (Consult Rx Perform Med Rec) 1 each MISCELLANE ONCE PRN PRN Reason: Consult order Trazodone HCl (Trazodone Hcl 50 Mg Tablet) 50 mg PO BEDTIME PRN PRN Reason: Insomnia Ziprasidone (Ziprasidone 40 Mg Capsule) 40 mg PO DAILY@1700 [facility] Last Admin: 01/07/21 22:30 Dose: 40 mg Documented by: Allergies Allergies Allergy/AdvReac Type Severity Reaction Status Date / Time lamotrigine [From Lamictal] AdvReac Unknown Unknown Verified 01/01/21 20:31 Assessment & Plan Assessment & Plan (1) Bipolar disorder current episode depressed: Qualifiers: Current episode severity: severe Psychotic features: with psychotic features Qualified Code(s): F31.5 - Bipolar disorder, current episode depressed, severe, with psychotic features Status: Acute Code(s): F31.30 - Bipolar disorder, current episode depressed, mild or moderate severity, unspecified (2) Seasonal affective disorder: Status: Acute Code(s): F33.8 - Other recurrent depressive disorders Assessment and Plan: Ambivalent about several aspects of her life due to current depressive symptoms. Agrees with Wellbutrin, although did not take it this a.m. Agrees to Geodon trial, 20 mg hs to begin tonight Ferrous Sulfate daily. Will draft a letter regarding admission to her employer who has requested this. Pt is ambivalent about treatment, has signed a three day notice of intent Thesis due Jan 2021. I have asked her to allow tw to draft a letter, asking for more time, so she may make a decision when feeling improved about leaving her program. She will consider. 01/06/21: Increase Geodon to 40 mg HS. Will file civil commitment on 01/07 should pt not retract TDN. She will give some thought to this and consult with legal advocate services. 01/07/21 TDN retracted Continue Geodon Lexapro 5 mg daily 01/08/21 TDN refiled Improvement noted Continue Geodon/Lexapro. I spent 45 minutes with the patient and/or on the patient floor today, greater than?50% of which was spent counseling/coordinating care. Patient educated on: medication risk/benefits and therapeutic strategies Informed Consent: understands and further education needed Reason for contiued inpatient stay Substantial Risk for: harm to self, inability to function and rapid decompensation
[2021-01-08 17:46] VITALS: BP 139/91; PULSE 68; TEMP 36.8; O2SAT 100
[2021-01-09] MEDS: Ziprasidone 40 MG CAPSULE PO (00:23)
[2021-01-09 06:00] VITALS: BP 134/76; PULSE 100; RESP 17; TEMP 36.3; O2SAT 98
[2021-01-09] MEDS: Escitalopram Oxalate 5 MG TABLET PO (09:06)
[2021-01-09 09:43] VITALS: BP 118/74; PULSE 91; RESP 14; O2SAT 96
--- NOTE | 2021-01-09 11:14 | HO.PSYCHPN ---
Subjective Subjective Date of Service: 01/09/21 Reason For Visit: Crisis Interim History: Patient fully dressed, lying on bed. She says she is very tired today and thinks it is because of the ziprasidone she took. She said she ended up taking it at midnight and thinks that it is causing her daytime sluggishness. With hesitancy she agrees to take it at an earlier time this evening, though does not want to take it with the inner since it will make her too tired to soon. Patient says that today she spit out her Lexapro. She says she does not like being to see full however yesterday when she took it she felt like she was zooming. She says she feels trapped because she has to take medications and does not want to. She denies any SI or HI; denies AVH. Station Jailer offered to hold her Lexapro for a day to see if she noticed any difference and then she could retake it the following day and see if she again felt zooming. She declined. Patient says she will continue to take meds. Mental Status Exam Mental Status Exam Narrative: Patient Appearance:?Appropriate Patient Orientation:?Person, Place, Time and Situation Level of Consciousness:?Awake and Alert Patient Behavior:? Calm, cooperative, Good Eye Contact Mood Description: Tired Affect Description:? Constricted Patient Cognition Impaired:?No Ability to Follow Directions:?Good Speech Pattern:?Spontaneous Speech, linear and goal oriented Memory Description:?Episodic Impaired Hallucinations:? Denies Delusions:?Not Present Perceptual Disturbances:?Depersonalization and Derealization Thought Process:?Rumination Thought Content: Denies SI or HI; does not want medications but says she will take them Judgment/insight: Impaired Diagnostics Vital Signs (24Hr): Vital Signs - 24 hr 01/08/21 17:46 01/09/21 06:00 01/09/21 09:43 Temperature 98.2 F 97.3 F Pulse Rate 68 100 91 Respiratory Rate 17 14 Blood Pressure 139/91 H 134/76 118/74 Pulse Oximetry 100 98 96 Body Mass Index 24.0 Labs Results: 01/01/21 22:07 01/01/21 22:07 Medications Medications Current Medications Acetaminophen (Acetaminophen 325 Mg Tablet) 650 mg PO Q6H PRN PRN Reason: Headache/Pain Mild Scale (1-3) Al Hydroxide/Mg Hydroxide (Magnesium Hydrox/Alum Hydrox 30 Ml Oral.Susp) 30 ml PO Q6H PRN PRN Reason: Heartburn/Nausea Benztropine Mesylate (Benztropine Mesylate 1 Mg Tablet) 1 mg PO TID PRN PRN Reason: Extrapyramidal Effects Escitalopram Oxalate (Escitalopram Oxalate 5 Mg Tablet) 5 mg PO DAILY [facility] Last Admin: 01/09/21 09:06 Dose: 5 mg Documented by: Ferrous Sulfate (Ferrous Sulfate 324 Mg Tablet.) 324 mg PO DAILY [facility] Last Admin: 01/09/21 09:07 Dose: Not Given Documented by: Folic Acid (Folic Acid 1 Mg Tablet) 1 mg PO DAILY [facility] Last Admin: 01/09/21 09:07 Dose: Not Given Documented by: Haloperidol (Haloperidol 5 Mg Tablet) 5 mg PO BID PRN PRN Reason: agitation,violence Hydroxyzine HCl (Hydroxyzine Hcl 25 Mg Tablet) 25 mg PO Q6H PRN PRN Reason: Anxiety Lorazepam (Lorazepam 1 Mg Tablet) 1 mg PO Q6H PRN PRN Reason: agiation, violence Magnesium Hydroxide (Milk Of Magnesia 30 Ml Oral.Susp) 30 ml PO DAILY PRN PRN Reason: Constipation Multivitamins/Vitamin C (Multivitamin Tablet) 1 tab PO DAILY [facility] Last Admin: 01/09/21 09:07 Dose: Not Given Documented by: Nicotine Polacrilex (Nicotine Polacrilex 2 Mg Gum) 2 mg BUCCAL Q2H PRN PRN Reason: Nicotine Cravings Pharmacy Consult (Consult Rx Perform Med Rec) 1 each MISCELLANE ONCE PRN PRN Reason: Consult order Trazodone HCl (Trazodone Hcl 50 Mg Tablet) 50 mg PO BEDTIME PRN PRN Reason: Insomnia Ziprasidone (Ziprasidone 40 Mg Capsule) 40 mg PO DAILY@1700 [facility] Last Admin: 01/09/21 00:23 Dose: 40 mg Documented by: Allergies Allergies Allergy/AdvReac Type Severity Reaction Status Date / Time lamotrigine [From Lamictal] AdvReac Unknown Unknown Verified 01/01/21 20:31 Assessment & Plan Assessment & Plan (1) Bipolar disorder current episode depressed: Qualifiers: Current episode severity: severe Psychotic features: with psychotic features Qualified Code(s): F31.5 - Bipolar disorder, current episode depressed, severe, with psychotic features Status: Acute Code(s): F31.30 - Bipolar disorder, current episode depressed, mild or moderate severity, unspecified (2) Seasonal affective disorder: Status: Acute Code(s): F33.8 - Other recurrent depressive disorders Assessment and Plan: Ambivalent about several aspects of her life due to current depressive symptoms. Agrees with Wellbutrin, although did not take it this a.m. Agrees to Geodon trial, 20 mg hs to begin tonight Ferrous Sulfate daily. Will draft a letter regarding admission to her employer who has requested this. Pt is ambivalent about treatment, has signed a three day notice of intent Thesis due Jan 2021. I have asked her to allow tw to draft a letter, asking for more time, so she may make a decision when feeling improved about leaving her program. She will consider. 01/06/21: Increase Geodon to 40 mg HS. Will file civil commitment on 01/07 should pt not retract TDN. She will give some thought to this and consult with legal advocate services. 01/07/21 TDN retracted Continue Geodon Lexapro 5 mg daily 01/08/21 TDN refiled Improvement noted Continue Geodon/Lexapro. 01/09/2021 Station Jailer covering; patient seen -Continue Geodon; however Will move Geodon to bedtime dosing since patient says it makes her too tired to take it dinner; will encourage a snack for absorption however it is better that she takes it without a snack than does not take it at all -Continue Lexapro: says she felt zooming when took Lexapro but says she will continue taking it I spent minutes with the patient and/or on the patient floor today, greater than?50% of which was spent counseling/coordinating care. Reason for contiued inpatient stay Substantial Risk for: rapid decompensation and med/psych decompensation
[2021-01-09 16:03] VITALS: BP 136/82; PULSE 54; TEMP 36.8; O2SAT 100
[2021-01-10 06:00] VITALS: BP 126/77; PULSE 55; RESP 16; TEMP 36.1; O2SAT 97
[2021-01-10 17:31] VITALS: BP 147/85; PULSE 57; TEMP 37; O2SAT 97
--- NOTE | 2021-01-10 20:13 | P.PNPSI_ITS ---
Subjective Subjective Date of Service: 01/10/21 Reason For Visit: Crisis Interim History: pt refused lexapro today and refused Ziprasidone last night; she repeated that it made her tired following day and did not want that to happen again. Patient seemed unable to accept writers help with changing the time of dosing, but eventually said she'd take it, saying it's the only way i'll get out of here. Business Analytics Specialist asked why she takes medicaions in first place; pt said depression; grant writer asked if she ever hears voices...pt was quiet for some time and said i dont' want to talk about that... Mental Status Exam Mental Status Exam Narrative: Patient Appearance:?Appropriate Patient Orientation:?Person, Place, Time and Situation Level of Consciousness:?Awake and Alert Patient Behavior:? Calm, cooperative, Good Eye Contact Mood Description:? depressed Affect Description:? Constricted Patient Cognition Impaired:?No Ability to Follow Directions:?Good Speech Pattern:?Spontaneous Speech, linear and goal oriented Memory Description:?Episodic Impaired Hallucinations:? Denies Delusions:?Not Present Perceptual Disturbances:?Depersonalization and Derealization Thought Process:?goal oriented Thought Content:? Denies SI or HI; does not want medications but says she will take them Judgment/insight: Impaired Diagnostics Vital Signs (24Hr): Vital Signs - 24 hr 01/10/21 06:00 01/10/21 17:31 Temperature 97 F 98.6 F Pulse Rate 55 57 Respiratory Rate 16 Blood Pressure 126/77 147/85 H Pulse Oximetry 97 97 Body Mass Index 24.0 Labs Results: 01/01/21 22:07 01/01/21 22:07 Medications Medications Current Medications Acetaminophen (Acetaminophen 325 Mg Tablet) 650 mg PO Q6H PRN PRN Reason: Headache/Pain Mild Scale (1-3) Al Hydroxide/Mg Hydroxide (Magnesium Hydrox/Alum Hydrox 30 Ml Oral.Susp) 30 ml PO Q6H PRN PRN Reason: Heartburn/Nausea Benztropine Mesylate (Benztropine Mesylate 1 Mg Tablet) 1 mg PO TID PRN PRN Reason: Extrapyramidal Effects Escitalopram Oxalate (Escitalopram Oxalate 5 Mg Tablet) 5 mg PO DAILY [facility] Last Admin: 01/10/21 09:02 Dose: Not Given Documented by: Ferrous Sulfate (Ferrous Sulfate 324 Mg Tablet.) 324 mg PO DAILY [facility] Last Admin: 01/10/21 09:02 Dose: Not Given Documented by: Folic Acid (Folic Acid 1 Mg Tablet) 1 mg PO DAILY [facility] Last Admin: 01/10/21 09:02 Dose: Not Given Documented by: Haloperidol (Haloperidol 5 Mg Tablet) 5 mg PO BID PRN PRN Reason: agitation,violence Hydroxyzine HCl (Hydroxyzine Hcl 25 Mg Tablet) 25 mg PO Q6H PRN PRN Reason: Anxiety Lorazepam (Lorazepam 1 Mg Tablet) 1 mg PO Q6H PRN PRN Reason: agiation, violence Magnesium Hydroxide (Milk Of Magnesia 30 Ml Oral.Susp) 30 ml PO DAILY PRN PRN Reason: Constipation Multivitamins/Vitamin C (Multivitamin Tablet) 1 tab PO DAILY [facility] Last Admin: 01/10/21 09:03 Dose: Not Given Documented by: Nicotine Polacrilex (Nicotine Polacrilex 2 Mg Gum) 2 mg BUCCAL Q2H PRN PRN Reason: Nicotine Cravings Pharmacy Consult (Consult Rx Perform Med Rec) 1 each MISCELLANE ONCE PRN PRN Reason: Consult order Trazodone HCl (Trazodone Hcl 50 Mg Tablet) 50 mg PO BEDTIME PRN PRN Reason: Insomnia Ziprasidone (Ziprasidone 40 Mg Capsule) 40 mg PO BEDTIME [facility] Last Admin: 01/09/21 22:39 Dose: Not Given Documented by: Allergies Allergies Allergy/AdvReac Type Severity Reaction Status Date / Time lamotrigine [From Lamictal] AdvReac Unknown Unknown Verified 01/01/21 20:31 Assessment & Plan Assessment & Plan (1) Bipolar disorder current episode depressed: Qualifiers: Current episode severity: severe Psychotic features: with psychotic features Qualified Code(s): F31.5 - Bipolar disorder, current episode depressed, severe, with psychotic features Status: Acute Code(s): F31.30 - Bipolar disorder, current episode depressed, mild or moderate severity, unspecified (2) Seasonal affective disorder: Status: Acute Code(s): F33.8 - Other recurrent depressive disorders Assessment and Plan: Ambivalent about several aspects of her life due to current depressive symptoms. Agrees with Wellbutrin, although did not take it this a.m. Agrees to Shane zhang, 20 mg hs to begin tonight Ferrous Sulfate daily. Will draft a letter regarding admission to her employer who has requested this. Pt is ambivalent about treatment, has signed a three day notice of intent Thesis due Jan 2021. I have asked her to allow tw to draft a letter, asking for more time, so she may make a decision when feeling improved about leaving her program. She will consider. 01/06/21: Increase Geodon to 40 mg HS. Will file civil commitment on 01/07 should pt not retract TDN. She will give some thought to this and consult with legal advocate services. 01/07/21 TDN retracted Continue Geodon Lexapro 5 mg daily 01/08/21 TDN refiled Improvement noted Continue Geodon/Lexapro. 01/10/2021 Business Analytics Specialist covering; patient seen -Continue Geodon; however Will move Geodon to bedtime dosing since patient says it makes her too tired to take it dinner; will encourage a snack for absorption however it is better that she takes it without a snack than does not take it at all -Continue Lexapro: says she felt zooming when took Lexapro but says she will continue taking it I spent minutes with the patient and/or on the patient floor today, greater than?50% of which was spent counseling/coordinating care. Reason for contiued inpatient stay Substantial Risk for: rapid decompensation
[2021-01-11 06:00] VITALS: BP 108/58; PULSE 62; RESP 18; TEMP 36.9; O2SAT 97
[2021-01-11] MEDS: Escitalopram Oxalate 5 MG TABLET PO (08:57)
--- NOTE | 2021-01-11 10:45 | HO.PSYCHPN ---
Subjective Subjective Date of Service: 01/11/21 Reason For Visit: Crisis Subjective Notes: 3 Day Healthcare Proxy: No Guardianship: No Medical Problems Affecting Mental Status: No Interim History: TDN to 01/13/21. Reports SE from medications. Geodon at 40 mg too sedating and increasing appetite . Will decrease to 20 mg daily. Anxiety/Depression 05/30. Pt talked with both her brother and sister today. Informed sister she will be leaving on 01/13, returning to work and school and has decided that she probably will not continue medications Medication Compliance: Yes Side effects from medications: Yes (Reported sedation) Attending Groups: Intermittent Review of Systems Acute medical concerns: No Medical Review of Systems: unchanged Review of Systems Reports behavioral changes Psychiatric: Reports abnormal sleep pattern, Reports anxiety, Reports behavioral changes, Reports change in appetite (the meds have increased my appetite), Reports depression, Reports difficulty concentrating, Reports hopelessness, Reports irritability, Reports anhedonia, Reports mood swings and Reports suicidal ideation (denies) Mental Status Exam Mental Status Exam Patient Appearance: Fatigued and Disheveled Patient Orientation: Person, Place, Time and Situation Level of Consciousness: Alert Patient Behavior: Talkative, Suspicious, Anxious, Resistive to Care, Avoidant and Poor Eye Contact Mood Description: Depressed and Angry Affect Description: Flat Patient Cognition Impaired: No Ability to Follow Directions: Good Speech Pattern: Spontaneous Speech and Soft-Spoken Memory Description: Episodic Impaired Hallucinations: None (denies) Delusions: Not Present Perceptual Disturbances: Depersonalization and Derealization Thought Process: Rumination and Goal Oriented Thought Content: positive for [place], positive for Circumstantial, positive for Goal Oriented, positive for Thought Blocking, positive for Evasive and positive for Suicidal Ideation (denies) Depressive Symptoms: Increased Anxiety, Sleeping More Than Usual, Feelings of Guilt, Unhappiness and Thoughts of /Suicide (denies) Abnormal Motor Activity Signs and Symptoms: Restlessness Judgement: Fair Diagnostics Vital Signs (24Hr): Vital Signs - 24 hr 01/10/21 17:31 01/11/21 06:00 Temperature 98.6 F 98.4 F Pulse Rate 57 62 Respiratory Rate 18 Blood Pressure 147/85 H 108/58 L Pulse Oximetry 97 97 Body Mass Index 24.0 Labs Results: 01/01/21 22:07 01/01/21 22:07 Medications Medications Current Medications Acetaminophen (Acetaminophen 325 Mg Tablet) 650 mg PO Q6H PRN PRN Reason: Headache/Pain Mild Scale (1-3) Al Hydroxide/Mg Hydroxide (Magnesium Hydrox/Alum Hydrox 30 Ml Oral.Susp) 30 ml PO Q6H PRN PRN Reason: Heartburn/Nausea Benztropine Mesylate (Benztropine Mesylate 1 Mg Tablet) 1 mg PO TID PRN PRN Reason: Extrapyramidal Effects Escitalopram Oxalate (Escitalopram Oxalate 5 Mg Tablet) 5 mg PO DAILY [facility] Last Admin: 01/11/21 08:57 Dose: 5 mg Documented by: Ferrous Sulfate (Ferrous Sulfate 324 Mg Tablet.) 324 mg PO DAILY [facility] Last Admin: 01/11/21 08:58 Dose: Not Given Documented by: Folic Acid (Folic Acid 1 Mg Tablet) 1 mg PO DAILY [facility] Last Admin: 01/11/21 08:58 Dose: Not Given Documented by: Haloperidol (Haloperidol 5 Mg Tablet) 5 mg PO BID PRN PRN Reason: agitation,violence Hydroxyzine HCl (Hydroxyzine Hcl 25 Mg Tablet) 25 mg PO Q6H PRN PRN Reason: Anxiety Lorazepam (Lorazepam 1 Mg Tablet) 1 mg PO Q6H PRN PRN Reason: agiation, violence Magnesium Hydroxide (Milk Of Magnesia 30 Ml Oral.Susp) 30 ml PO DAILY PRN PRN Reason: Constipation Multivitamins/Vitamin C (Multivitamin Tablet) 1 tab PO DAILY [facility] Last Admin: 01/11/21 08:58 Dose: Not Given Documented by: Nicotine Polacrilex (Nicotine Polacrilex 2 Mg Gum) 2 mg BUCCAL Q2H PRN PRN Reason: Nicotine Cravings Pharmacy Consult (Consult Rx Perform Med Rec) 1 each MISCELLANE ONCE PRN PRN Reason: Consult order Trazodone HCl (Trazodone Hcl 50 Mg Tablet) 50 mg PO BEDTIME PRN PRN Reason: Insomnia Ziprasidone (Ziprasidone 40 Mg Capsule) 40 mg PO BEDTIME [facility] Last Admin: 01/10/21 20:44 Dose: Not Given Documented by: Allergies Allergies Allergy/AdvReac Type Severity Reaction Status Date / Time lamotrigine [From Lamictal] AdvReac Unknown Unknown Verified 01/01/21 20:31 Assessment & Plan Assessment & Plan (1) Bipolar disorder current episode depressed: Qualifiers: Current episode severity: severe Psychotic features: with psychotic features Qualified Code(s): F31.5 - Bipolar disorder, current episode depressed, severe, with psychotic features Status: Acute Code(s): F31.30 - Bipolar disorder, current episode depressed, mild or moderate severity, unspecified (2) Seasonal affective disorder: Status: Acute Code(s): F33.8 - Other recurrent depressive disorders Assessment and Plan: Ambivalent about several aspects of her life due to current depressive symptoms. Agrees with Wellbutrin, although did not take it this a.m. Agrees to Geodon trial, 20 mg hs to begin tonight Ferrous Sulfate daily. Will draft a letter regarding admission to her employer who has requested this. Pt is ambivalent about treatment, has signed a three day notice of intent Thesis due Jan 2021. I have asked her to allow tw to draft a letter, asking for more time, so she may make a decision when feeling improved about leaving her program. She will consider. 01/06/21: Increase Geodon to 40 mg HS. Will file civil commitment on 01/07 should pt not retract TDN. She will give some thought to this and consult with legal advocate services. 01/07/21 TDN retracted Continue Geodon Lexapro 5 mg daily 01/08/21 TDN refiled Improvement noted Continue Geodon/Lexapro. 01/10/2021 [employer] covering; patient seen -Continue Geodon; however Will move Geodon to bedtime dosing since patient says it makes her too tired to take it dinner; will encourage a snack for absorption however it is better that she takes it without a snack than does not take it at all -Continue Lexapro: says she felt zooming when took Lexapro but says she will continue taking it 01/11/21 Decrease Geodon to 20 mg daily. TDN 01/13/21. I spent 40 minutes with the patient and/or on the patient floor today, greater than?50% of which was spent counseling/coordinating care. Patient educated on: medication risk/benefits and therapeutic strategies Informed Consent: further education needed Reason for contiued inpatient stay Substantial Risk for: inability to function and rapid decompensation
[2021-01-11 17:06] VITALS: BP 148/75; PULSE 68; TEMP 36.8; O2SAT 98
[2021-01-11] MEDS: Ziprasidone 20 MG CAPSULE PO (20:17)
[2021-01-12 06:00] VITALS: BP 151/72; PULSE 55; RESP 18; O2SAT 98
[2021-01-12] MEDS: Escitalopram Oxalate 5 MG TABLET PO (08:47)
--- NOTE | 2021-01-12 14:53 | P.PNPSI_ITS ---
Subjective Subjective Date of Service: 01/12/21 Reason For Visit: Crisis Subjective Notes: 3 Day Healthcare Proxy: No Guardianship: No Medical Problems Affecting Mental Status: No Interim History: Pt ambivalent about discharge. Family has asked her to remain and continue treatment. She identifies benefit from the medications, but also feeling that her appetite has increased, she has improved focus, is more productive, with clearer thought process. Wanting to return to work, school. Encouraged to remain and finish up her care and discharge with relief. She will consider. She spoke with her niece in [place] who was very supportive and direct with pt, telling her that she had hurt her mother and that her mother was very worried about her. Pt cried, citing that was not her intent-niece told her the family could not take another loss after the parents and other sister. Pt appeared to hear this-assured niece she was in no way suicidal, wanted to come to [place] when she feels improved and just wanting to get back to life. Medication Compliance: Yes Side effects from medications: No Attending Groups: Intermittent Review of Systems Acute medical concerns: No Medical Review of Systems: unchanged Review of Systems Reports behavioral changes Psychiatric: Reports anxiety, Reports behavioral changes, Reports change in appetite, Reports depression, Reports difficulty concentrating, Reports irritability, Reports anhedonia, Reports mood swings and Reports suicidal ideation (denies) Mental Status Exam Mental Status Exam Patient Appearance: Fatigued and Disheveled Patient Orientation: Person, Place, Time and Situation Level of Consciousness: Alert Patient Behavior: Talkative, Suspicious, Anxious, Resistive to Care, Avoidant an d Poor Eye Contact Mood Description: Depressed and Angry Affect Description: Flat Patient Cognition Impaired: No Ability to Follow Directions: Good Speech Pattern: Spontaneous Speech and Soft-Spoken Memory Description: Episodic Impaired Hallucinations: None (denies) Delusions: Not Present Perceptual Disturbances: Depersonalization and Derealization Thought Process: Rumination and Goal Oriented Thought Content: positive for [place], positive for Circumstantial, positive for Goal Oriented, positive for Thought Blocking, positive for Evasive and positive for Suicidal Ideation (denies) Depressive Symptoms: Increased Anxiety, Sleeping More Than Usual, Feelings of Guilt, Unhappiness and Thoughts of /Suicide (denies) Abnormal Motor Activity Signs and Symptoms: Restlessness Judgement: Fair Diagnostics Vital Signs (24Hr): Vital Signs - 24 hr 01/11/21 17:06 01/12/21 06:00 Temperature 98.2 F Pulse Rate 68 55 Respiratory Rate 18 Blood Pressure 148/75 H 151/72 H Pulse Oximetry 98 98 Body Mass Index 24.0 Labs Results: 01/01/21 22:07 01/01/21 22:07 Medications Medications Current Medications Acetaminophen (Acetaminophen 325 Mg Tablet) 650 mg PO Q6H PRN PRN Reason: Headache/Pain Mild Scale (1-3) Al Hydroxide/Mg Hydroxide (Magnesium Hydrox/Alum Hydrox 30 Ml Oral.Susp) 30 ml PO Q6H PRN PRN Reason: Heartburn/Nausea Benztropine Mesylate (Benztropine Mesylate 1 Mg Tablet) 1 mg PO TID PRN PRN Reason: Extrapyramidal Effects Escitalopram Oxalate (Escitalopram Oxalate 5 Mg Tablet) 5 mg PO DAILY [facility] Last Admin: 01/12/21 08:47 Dose: 5 mg Documented by: Ferrous Sulfate (Ferrous Sulfate 324 Mg Tablet.) 324 mg PO DAILY [facility] Last Admin: 01/12/21 08:49 Dose: Not Given Documented by: Folic Acid (Folic Acid 1 Mg Tablet) 1 mg PO DAILY [facility] Last Admin: 01/12/21 08:49 Dose: Not Given Documented by: Haloperidol (Haloperidol 5 Mg Tablet) 5 mg PO BID PRN PRN Reason: agitation,violence Hydroxyzine HCl (Hydroxyzine Hcl 25 Mg Tablet) 25 mg PO Q6H PRN PRN Reason: Anxiety Lorazepam (Lorazepam 1 Mg Tablet) 1 mg PO Q6H PRN PRN Reason: agiation, violence Magnesium Hydroxide (Milk Of Magnesia 30 Ml Oral.Susp) 30 ml PO DAILY PRN PRN Reason: Constipation Multivitamins/Vitamin C (Multivitamin Tablet) 1 tab PO DAILY [facility] Last Admin: 01/12/21 08:49 Dose: Not Given Documented by: Nicotine Polacrilex (Nicotine Polacrilex 2 Mg Gum) 2 mg BUCCAL Q2H PRN PRN Reason: Nicotine Cravings Pharmacy Consult (Consult Rx Perform Med Rec) 1 each MISCELLANE ONCE PRN PRN Reason: Consult order Trazodone HCl (Trazodone Hcl 50 Mg Tablet) 50 mg PO BEDTIME PRN PRN Reason: Insomnia Ziprasidone (Ziprasidone 20 Mg Capsule) 20 mg PO BEDTIME [facility] Last Admin: 01/11/21 20:17 Dose: 20 mg Documented by: Allergies Allergies Allergy/AdvReac Type Severity Reaction Status Date / Time lamotrigine [From Lamictal] AdvReac Unknown Unknown Verified 01/01/21 20:31 Assessment & Plan Assessment & Plan (1) Bipolar disorder current episode depressed: Qualifiers: Current episode severity: severe Psychotic features: with psychotic features Qualified Code(s): F31.5 - Bipolar disorder, current episode depressed, severe, with psychotic features Status: Acute Code(s): F31.30 - Bipolar disorder, current episode depressed, mild or moderate severity, unspecified (2) Seasonal affective disorder: Status: Acute Code(s): F33.8 - Other recurrent depressive disorders Assessment and Plan: Ambivalent about several aspects of her life due to current depressive symptoms. Agrees with Wellbutrin, although did not take it this a.m. Agrees to Geodon trial, 20 mg hs to begin tonight Ferrous Sulfate daily. Will draft a letter regarding admission to her employer who has requested this. Pt is ambivalent about treatment, has signed a three day notice of intent Thesis due Jan 2021. I have asked her to allow tw to draft a letter, asking for more time, so she may make a decision when feeling improved about leaving her program. She will consider. 01/06/21: Increase Geodon to 40 mg HS. Will file civil commitment on 01/07 should pt not retract TDN. She will give some thought to this and consult with legal advocate services. 01/07/21 TDN retracted Continue Geodon Lexapro 5 mg daily 01/08/21 TDN refiled Improvement noted Continue Geodon/Lexapro. 01/10/2021 Upsetter Helper covering; patient seen -Continue Geodon; however Will move Geodon to bedtime dosing since patient says it makes her too tired to take it dinner; will encourage a snack for absorption however it is better that she takes it without a snack than does not take it at all -Continue Lexapro: says she felt zooming when took Lexapro but says she will continue taking it 01/12/21: TDN expires 01/13. Pt considering continuing her admission. Family has encouraged her to remain, take medications, titrate dosing. I spent 45 minutes with the patient and/or on the patient floor today, greater than?50% of which was spent counseling/coordinating care. Patient educated on: medication risk/benefits and therapeutic strategies Informed Consent: further education needed Reason for contiued inpatient stay Substantial Risk for: inability to function and rapid decompensation
[2021-01-12 16:27] VITALS: BP 164/90; PULSE 50; TEMP 36.2; O2SAT 99
[2021-01-12 20:30] VITALS: BP 160/86; PULSE 50
--- NOTE | 2021-01-12 21:45 | PC.NURSE ---
Patient's Blood Pressure around 1630 was 164/90 with a pulse of 50. Patient said she had had an upsetting telephone call today and that might account for the elevated pressure. This verse writer recheckec blood pressure at 2030 and the pressure was 164/90 with a pulse of 50. Patient was just started on Geodon last night and stated the medication made her feel very sleepy . This verse writer sent a text to Dr. Mancini regarding her blood pressure trend since yesterday morning. Dr. Mancini decided the Geodon dose for tonight should be held and the medication be reviewed in the morning. Patient aware.
[2021-01-12 23:30] VITALS: BP 136/79; PULSE 70
--- NOTE | 2021-01-13 | ECG_ITS ---
Test Reason : bp elevation Blood Pressure : / mmHG Vent. Rate : 058 BPM Atrial Rate : 058 BPM P-R Int : 150 ms QRS Dur : 080 ms QT Int : 418 ms P-R-T Axes : 068 -09 023 degrees QTc Int : 410 ms Sinus bradycardia Low voltage QRS RSR' or QR pattern in V1 suggests right ventricular conduction delay Borderline ECG When compared with ECG of 28-DEC-2020 19:36, No significant change was found Referred By: Juliane Gomez Electronically Signed By:YOGESH BERRY MD
[2021-01-13] MEDS: traZODone HCL 50 MG TABLET PO (03:50)
--- NOTE | 2021-01-13 10:52 | P.PNPSI_ITS ---
Subjective Subjective Date of Service: 01/13/21 Reason For Visit: Crisis Subjective Notes: 3 Day Healthcare Proxy: No Guardianship: No Medical Problems Affecting Mental Status: No Interim History: Pt's Shane held last evening as BP 1630 164/90 50 and 2230 136/79 70. Presenting with an increase in depressive, psychotic symptoms this a.m. She planned no retraction of three day notice as a result civil commitment was filed for. Expressed anger, verbal and physical-prepared prn medications. Pt able to calm- asks that she have NO benzodiazepines as it will effect her recovery. EKG to review elevation in BP Vent. rate 58 (5 mile/day runner) QTc 410. Sinus bradycardia. Discussed changing Shane. Review of Latuda (she has taken in the past with success) and Vraylar. Struggling, ambivalent about treatment, living, and moving forward. Family continues to be a support, they are fearful she will not survive this episode. Medication Compliance: Intermittent Side effects from medications: Yes (sedation) Attending Groups: Intermittent Review of Systems Acute medical concerns: No Medical Review of Systems: unchanged Review of Systems Reports behavioral changes and Reports confusion Psychiatric: Reports abnormal sleep pattern, Reports anxiety, Reports behavioral changes, Reports change in appetite, Reports confusion, Reports depression, Reports difficulty concentrating, Reports hopelessness, Reports irritability, Reports anhedonia, Reports mood swings, Reports paranoia and Reports suicidal ideation Mental Status Exam Mental Status Exam Patient Appearance: Fatigued and Disheveled Patient Orientation: Person, Place, Time and Situation Level of Consciousness: Alert Patient Behavior: Talkative, Suspicious, Anxious, Resistive to Care, Avoidant and Poor Eye Contact Mood Description: Depressed and Angry Affect Description: Flat Patient Cognition Impaired: No Ability to Follow Directions: Good Speech Pattern: Spontaneous Speech and Soft-Spoken Memory Description: Episodic Impaired Hallucinations: None (denies) Delusions: Not Present Perceptual Disturbances: Depersonalization and Derealization Thought Process: Rumination and Goal Oriented Thought Content: positive for [place], positive for Circumstantial, positive for Goal Oriented, positive for Thought Blocking, positive for Evasive and positive for Suicidal Ideation (intermittent) Depressive Symptoms: Increased Anxiety, Sleeping More Than Usual, Feelings of Guilt, Unhappiness and Thoughts of /Suicide (intermittent) Abnormal Motor Activity Signs and Symptoms: Restlessness Judgement: Fair Diagnostics Vital Signs (24Hr): Vital Signs - 24 hr 01/12/21 16:27 01/12/21 20:30 01/12/21 23:30 Temperature 97.2 F Pulse Rate 50 50 70 Blood Pressure 164/90 H 160/86 H 136/79 Pulse Oximetry 99 Body Mass Index 24.0 Labs Results: 01/01/21 22:07 01/01/21 22:07 Medications Medications Current Medications Acetaminophen (Acetaminophen 325 Mg Tablet) 650 mg PO Q6H PRN PRN Reason: Headache/Pain Mild Scale (1-3) Al Hydroxide/Mg Hydroxide (Magnesium Hydrox/Alum Hydrox 30 Ml Oral.Susp) 30 ml PO Q6H PRN PRN Reason: Heartburn/Nausea Benztropine Mesylate (Benztropine Mesylate 1 Mg Tablet) 1 mg PO TID PRN PRN Reason: Extrapyramidal Effects Ferrous Sulfate (Ferrous Sulfate 324 Mg Tablet.Dr) 324 mg PO DAILY [facility] Last Admin: 01/13/21 09:21 Dose: Not Given Documented by: Folic Acid (Folic Acid 1 Mg Tablet) 1 mg PO DAILY [facility] Last Admin: 01/13/21 09:21 Dose: Not Given Documented by: Haloperidol (Haloperidol 5 Mg Tablet) 5 mg PO BID PRN PRN Reason: agitation,violence Hydroxyzine HCl (Hydroxyzine Hcl 25 Mg Tablet) 25 mg PO Q6H PRN PRN Reason: Anxiety Lorazepam (Lorazepam 1 Mg Tablet) 1 mg PO Q6H PRN PRN Reason: agiation, violence Magnesium Hydroxide (Milk Of Magnesia 30 Ml Oral.Susp) 30 ml PO DAILY PRN PRN Reason: Constipation Multivitamins/Vitamin C (Multivitamin Tablet) 1 tab PO DAILY [facility] Last Admin: 01/13/21 09:21 Dose: Not Given Documented by: Nicotine Polacrilex (Nicotine Polacrilex 2 Mg Gum) 2 mg BUCCAL Q2H PRN PRN Reason: Nicotine Cravings Pharmacy Consult (Consult Rx Perform Med Rec) 1 each MISCELLANE ONCE PRN PRN Reason: Consult order Trazodone HCl (Trazodone Hcl 50 Mg Tablet) 50 mg PO BEDTIME PRN PRN Reason: Insomnia Last Admin: 01/13/21 03:50 Dose: 50 mg Documented by: Ziprasidone (Ziprasidone 20 Mg Capsule) 20 mg PO BEDTIME [facility] Last Admin: 01/12/21 21:39 Dose: Not Given Documented by: Allergies Allergies Allergy/AdvReac Type Severity Reaction Status Date / Time lamotrigine [From Lamictal] AdvReac Unknown Unknown Verified 01/01/21 20:31 Assessment & Plan Assessment & Plan (1) Bipolar disorder current episode depressed: Qualifiers: Current episode severity: severe Psychotic features: with psychotic features Qualified Code(s): F31.5 - Bipolar disorder, current episode depressed, severe, with psychotic features Status: Acute Code(s): F31.30 - Bipolar disorder, current episode depressed, mild or moderate severity, unspecified (2) Seasonal affective disorder: Status: Acute Code(s): F33.8 - Other recurrent depressive disorders Assessment and Plan: Ambivalent about several aspects of her life due to current depressive symptoms. Agrees with Wellbutrin, although did not take it this a.m. Agrees to Geodon trial, 20 mg hs to begin tonight Ferrous Sulfate daily. Will draft a letter regarding admission to her employer who has requested this. Pt is ambivalent about treatment, has signed a three day notice of intent Thesis due Jan 2021. I have asked her to allow tw to draft a letter, asking for more time, so she may make a decision when feeling improved about leaving her program. She will consider. 01/06/21: Increase Geodon to 40 mg HS. Will file civil commitment on 01/07 should pt not retract TDN. She will give some thought to this and consult with legal advocate services. 01/07/21 TDN retracted Continue Geodon Lexapro 5 mg daily 01/08/21 TDN refiled Improvement noted Continue Geodon/Lexapro. 01/10/2021 Tax Economist covering; patient seen -Continue Geodon; however Will move Geodon to bedtime dosing since patient says it makes her too tired to take it dinner; will encourage a snack for absorption however it is better that she takes it without a snack than does not take it at all -Continue Lexapro: says she felt zooming when took Lexapro but says she will continue taking it 01/12/21: TDN expires 01/13. Pt considering continuing her admission. Family has encouraged her to remain, take medications, titrate dosing. 01/13/21: Civil commitment filing completed Discontinue Geodon Latuda 20 mg HS Discontinue Lexapro I spent 60 minutes with the patient and/or on the patient floor today, greater than?50% of which was spent counseling/coordinating care. Patient educated on: medication risk/benefits and therapeutic strategies Informed Consent: further education needed Reason for contiued inpatient stay Substantial Risk for: harm to self, inability to function and rapid decompensation
[2021-01-13 13:02] VITALS: BP 169/88; PULSE 58; RESP 14
[2021-01-13 19:30] VITALS: BP 130/80; PULSE 48; TEMP 36.2; O2SAT 99
[2021-01-13] MEDS: Lurasidone HCl 20 MG TABLET PO (21:20)
[2021-01-14 06:00] VITALS: BP 150/74; PULSE 61; RESP 17; TEMP 36.6; O2SAT 98
[2021-01-14 07:00] VITALS: BMI 23.1
--- NOTE | 2021-01-14 10:31 | P.PNPSI_ITS ---
Subjective Subjective Date of Service: 01/14/21 Reason For Visit: Crisis Subjective Notes: Section 7 Healthcare Proxy: No Guardianship: No Medical Problems Affecting Mental Status: No Interim History: playing in rawls with other patients with tennis ball - using as socceer ball to play catch with their feet- Reports tolerated Latuda last pm- relieved that can tolerate it still very depressed, and no appetite still si, isolative, anxious Medication Compliance: Intermittent Side effects from medications: No Attending Groups: Intermittent Review of Systems Acute medical concerns: No Medical Review of Systems: unchanged Mental Status Exam Mental Status Exam Narrative: kempt Patient Appearance: Appropriate Patient Orientation: Person, Place, Time and Situation Level of Consciousness: Awake Patient Behavior: Guarded, Passive and Poor Eye Contact Mood Description: Depressed and Sad Affect Description: Anxious Patient Cognition Impaired: No Ability to Follow Directions: Fair Speech Pattern: Clear Hallucinations: None Thought Process: Intact Thought Content: positive for [place]overty of Content and positive for Thought Blocking Depressive Symptoms: Increased Anxiety, Muscle Tension, Significant Weight Loss, Feelings of Worthlessness, Hopelessness, Thoughts of /Suicide and Difficulty Concentrating Judgement: Fair Diagnostics Vital Signs (24Hr): Vital Signs - 24 hr 01/13/21 13:02 01/13/21 19:30 01/14/21 06:00 Temperature 97.1 F 97.8 F Pulse Rate 58 48 L 61 Respiratory Rate 14 17 Blood Pressure 169/88 H 130/80 150/74 H Pulse Oximetry 99 98 Body Mass Index 24.0 Labs Results: 01/01/21 22:07 01/01/21 22:07 EKG EKG: reviewed EKG Comment: qtc 410 Medications Medications Current Medications Acetaminophen (Acetaminophen 325 Mg Tablet) 650 mg PO Q6H PRN PRN Reason: Headache/Pain Mild Scale (1-3) Al Hydroxide/Mg Hydroxide (Magnesium Hydrox/Alum Hydrox 30 Ml Oral.Susp) 30 ml PO Q6H PRN PRN Reason: Heartburn/Nausea Benztropine Mesylate (Benztropine Mesylate 1 Mg Tablet) 1 mg PO TID PRN PRN Reason: Extrapyramidal Effects Ferrous Sulfate (Ferrous Sulfate 324 Mg Tablet.) 324 mg PO DAILY [facility] Last Admin: 01/14/21 08:36 Dose: Not Given Documented by: Folic Acid (Folic Acid 1 Mg Tablet) 1 mg PO DAILY [facility] Last Admin: 01/14/21 08:36 Dose: Not Given Documented by: Haloperidol (Haloperidol 5 Mg Tablet) 5 mg PO BID PRN PRN Reason: agitation,violence Hydroxyzine HCl (Hydroxyzine Hcl 25 Mg Tablet) 25 mg PO Q6H PRN PRN Reason: Anxiety Lurasidone HCl (Lurasidone Hcl 20 Mg Tablet) 20 mg PO BEDTIME [facility] Last Admin: 01/13/21 21:20 Dose: 20 mg Documented by: Magnesium Hydroxide (Milk Of Magnesia 30 Ml Oral.Susp) 30 ml PO DAILY PRN PRN Reason: Constipation Multivitamins/Vitamin C (Multivitamin Tablet) 1 tab PO DAILY [facility] Last Admin: 01/14/21 08:36 Dose: Not Given Documented by: Nicotine Polacrilex (Nicotine Polacrilex 2 Mg Gum) 2 mg BUCCAL Q2H PRN PRN Reason: Nicotine Cravings Pharmacy Consult (Consult Rx Perform Med Rec) 1 each MISCELLANE ONCE PRN PRN Reason: Consult order Trazodone HCl (Trazodone Hcl 50 Mg Tablet) 50 mg PO BEDTIME PRN PRN Reason: Insomnia Last Admin: 01/13/21 03:50 Dose: 50 mg Documented by: Allergies Allergies Allergy/AdvReac Type Severity Reaction Status Date / Time lamotrigine [From Lamictal] AdvReac Unknown Unknown Verified 01/01/21 20:31 Assessment & Plan Assessment & Plan (1) Bipolar disorder current episode depressed: Qualifiers: Current episode severity: severe Psychotic features: with psychotic features Qualified Code(s): F31.5 - Bipolar disorder, current episode depressed, severe, with psychotic features Status: Acute Code(s): F31.30 - Bipolar disorder, current episode depressed, mild or moderate severity, unspecified Assessment and Plan: continue latuda, titrate as tolerated (2) Seasonal affective disorder: Status: Acute Code(s): F33.8 - Other recurrent depressive disorders Assessment and Plan: Ambivalent about medications and effects seems to be glad Latuda was tolerable- did not take with food as no appetite ziprasodone was dced due to intolerance though ekg is ok - prior notes: Will draft a letter regarding admission to her employer who has requested this. Pt is ambivalent about treatment, has signed a three day notice of intent Thesis due Jan 2021. I have asked her to allow tw to draft a letter, asking for more time, so she may make a decision when feeling improved about leaving her program. She will consider. 01/06/21: Increase Geodon to 40 mg HS. Will file civil commitment on 01/07 should pt not retract TDN. She will give some thought to this and consult with legal advocate services. 01/07/21 TDN retracted Continue Geodon Lexapro 5 mg daily 01/08/21 TDN refiled Improvement noted Continue Geodon/Lexapro. 01/10/2021 Medical Services Assistant covering; patient seen -Continue Geodon; however Will move Geodon to bedtime dosing since patient says it makes her too tired to take it dinner; will encourage a snack for absorption however it is better that she takes it without a snack than does not take it at all -Continue Lexapro: says she felt zooming when took Lexapro but says she will continue taking it 01/12/21: TDN expires 01/13. Pt considering continuing her admission. Family has encouraged her to remain, take medications, titrate dosing. 01/13/21: Civil commitment filing completed Discontinue Geodon Latuda 20 mg HS Discontinue Lexapro I spent minutes with the patient and/or on the patient floor today, greater than?50% of which was spent counseling/coordinating care. Patient educated on: medication risk/benefits Informed Consent: understands Reason for contiued inpatient stay Substantial Risk for: harm to self and rapid decompensation
[2021-01-14 18:00] VITALS: BP 128/70; PULSE 53; TEMP 36.9; O2SAT 100
[2021-01-14] MEDS: Lurasidone HCl 20 MG TABLET PO (21:54)
[2021-01-15 06:00] VITALS: BP 136/60; PULSE 48; RESP 18; TEMP 36.7; O2SAT 97
--- NOTE | 2021-01-15 16:45 | HO.PSYCHPN ---
Subjective Subjective Date of Service: 01/15/21 Reason For Visit: Crisis Subjective Notes: Section [employer] Healthcare Proxy: No Guardianship: No Medical Problems Affecting Mental Status: No Interim History: Pt tolerating low dose Latuda. Declines increase to 40 mg today. Pt in discussion with Naomibunny Crum JUAN today reports that she was planning/considering suicide if discharged on 01/13. Reports no weight gain from meds-reports loss of 5 lbs. Review decrease in absorption when Latuda is not taken with food~50%. Pt continues to not want to increase. Reports sleep is improved over the past two nights. At 1820 tw notified that pt eloped from the unit, breaking through the door-pt returned with team and security, only to break through the door again-being stopped right outside the unit by security and team. Haldol 5 mg IM given. Pt asked not to have Lorazepam due to sobriety-prns of Benztropine and Diphenhydramine are ordered, however Lorazepam needed to be given due to pt attacking team members. Pt required code assistance from the hospital along with several security to assist in helping her to calm. Medication Compliance: Yes Side effects from medications: No Attending Groups: Intermittent Review of Systems Acute medical concerns: No Medical Review of Systems: unchanged Review of Systems Reports behavioral changes and Reports memory loss Psychiatric: Reports anxiety, Reports behavioral changes, Reports change in appetite, Reports depression, Reports difficulty concentrating, Reports hopelessness, Reports irritability, Reports memory loss, Reports mood swings, Reports paranoia and Reports suicidal ideation Mental Status Exam Mental Status Exam Patient Appearance: Disheveled Patient Orientation: Person, Place and Situation Level of Consciousness: Restless Patient Behavior: Guarded, Talkative, Suspicious, Aggressive, Restless, Anxious, Fearful, Resistive to Care, Avoidant, Distractible, Isolative, Uncooperative and Pacing Mood Description: Suspicious, Withdrawn, Constricted, Depressed, Fearful, Hostile, Anxious, Labile, Angry and Apprehensive Affect Description: Labile Patient Cognition Impaired: No Ability to Follow Directions: Good Speech Pattern: Perseverating, Spontaneous Speech and Loud Memory Description: Remote Impaired and Episodic Impaired Delusions: Paranoid Ideation and Present Perceptual Disturbances: Depersonalization and Derealization Thought Process: Illogical, Distracted and Rumination Thought Content: positive for [place], positive for Circumstantial, positive for Goal Oriented, positive for Perseveration, positive for Disorganized and positive for Suicidal Ideation Depressive Symptoms: Increased Anxiety, Diff. Making Decisions, Changes in Appetite, Significant Weight Loss, Loss of Int. in Activity, Feelings of Worthlessness, Hopelessness, Isolating-Friends/Family, Feelings of Guilt, Unhappiness, Increased Fatigue, Thoughts of /Suicide, Loss of Energy and Difficulty Concentrating Judgement: Poor Diagnostics Vital Signs (24Hr): Vital Signs - 24 hr 01/14/21 18:00 01/15/21 06:00 Temperature 98.4 F 98.1 F Pulse Rate 53 48 L Respiratory Rate 18 Blood Pressure 128/70 136/60 Pulse Oximetry 100 97 Body Mass Index 23.1 Labs Results: 01/01/21 22:07 01/01/21 22:07 Medications Medications Current Medications Acetaminophen (Acetaminophen 325 Mg Tablet) 650 mg PO Q6H PRN PRN Reason: Headache/Pain Mild Scale (1-3) Al Hydroxide/Mg Hydroxide (Magnesium Hydrox/Alum Hydrox 30 Ml Oral.Susp) 30 ml PO Q6H PRN PRN Reason: Heartburn/Nausea Benztropine Mesylate (Benztropine Mesylate 1 Mg Tablet) 1 mg PO TID PRN PRN Reason: Extrapyramidal Effects Ferrous Sulfate (Ferrous Sulfate 324 Mg Tablet.Dr) 324 mg PO DAILY [facility] Last Admin: 01/15/21 08:35 Dose: Not Given Documented by: Folic Acid (Folic Acid 1 Mg Tablet) 1 mg PO DAILY [facility] Last Admin: 01/15/21 08:35 Dose: Not Given Documented by: Haloperidol (Haloperidol 5 Mg Tablet) 5 mg PO BID PRN PRN Reason: agitation,violence Hydroxyzine HCl (Hydroxyzine Hcl 25 Mg Tablet) 25 mg PO Q6H PRN PRN Reason: Anxiety Lurasidone HCl (Lurasidone Hcl 20 Mg Tablet) 20 mg PO BEDTIME [facility] Last Admin: 01/14/21 21:54 Dose: 20 mg Documented by: Magnesium Hydroxide (Milk Of Magnesia 30 Ml Oral.Susp) 30 ml PO DAILY PRN PRN Reason: Constipation Multivitamins/Vitamin C (Multivitamin Tablet) 1 tab PO DAILY [facility] Last Admin: 01/15/21 08:35 Dose: Not Given Documented by: Nicotine Polacrilex (Nicotine Polacrilex 2 Mg Gum) 2 mg BUCCAL Q2H PRN PRN Reason: Nicotine Cravings Pharmacy Consult (Consult Rx Perform Med Rec) 1 each MISCELLANE ONCE PRN PRN Reason: Consult order Trazodone HCl (Trazodone Hcl 50 Mg Tablet) 50 mg PO BEDTIME PRN PRN Reason: Insomnia Last Admin: 01/13/21 03:50 Dose: 50 mg Documented by: Allergies Allergies Allergy/AdvReac Type Severity Reaction Status Date / Time lamotrigine [From Lamictal] AdvReac Unknown Unknown Verified 01/01/21 20:31 Assessment & Plan Assessment & Plan (1) Bipolar disorder current episode depressed: Qualifiers: Current episode severity: severe Psychotic features: with psychotic features Qualified Code(s): F31.5 - Bipolar disorder, current episode depressed, severe, with psychotic features Status: Acute Code(s): F31.30 - Bipolar disorder, current episode depressed, mild or moderate severity, unspecified (2) Seasonal affective disorder: Status: Acute Code(s): F33.8 - Other recurrent depressive disorders Assessment and Plan: Ambivalent about medications and effects seems to be glad Latuda was tolerable- did not take with food as no appetite ziprasodone was dced due to intolerance though ekg is ok - prior notes: Will draft a letter regarding admission to her employer who has requested this. Pt is ambivalent about treatment, has signed a three day notice of intent Thesis due Jan 2021. I have asked her to allow tw to draft a letter, asking for more time, so she may make a decision when feeling improved about leaving her program. She will consider. 01/06/21: Increase Geodon to 40 mg HS. Will file civil commitment on 01/07 should pt not retract TDN. She will give some thought to this and consult with legal advocate services. 01/07/21 TDN retracted Continue Geodon Lexapro 5 mg daily 01/08/21 TDN refiled Improvement noted Continue Geodon/Lexapro. 01/10/2021 Winterizer covering; patient seen -Continue Geodon; however Will move Geodon to bedtime dosing since patient says it makes her too tired to take it dinner; will encourage a snack for absorption however it is better that she takes it without a snack than does not take it at all -Continue Lexapro: says she felt zooming when took Lexapro but says she will continue taking it 01/12/21: TDN expires 01/13. Pt considering continuing her admission. Family has encouraged her to remain, take medications, titrate dosing. 01/13/21: Civil commitment filing completed Discontinue Geodon Latuda 20 mg HS Discontinue Lexapro 01/15/21 Significant evening agitation with two elopement episodes, requiring IM medications. Pt is reluctant to titrate regime of Latuda. Currently it is not effective in symptom mgt at 20 mg. She refuses increase so we will need to change regime. Plan: Discontinue Latuda Haldol 10 mg bid Trileptal 300 mg bid I spent 60 minutes with the patient and/or on the patient floor today, greater than?50% of which was spent counseling/coordinating care. Informed Consent: does not understand Reason for contiued inpatient stay Substantial Risk for: harm to self, harm to others, inability to function and rapid decompensation
--- NOTE | 2021-01-15 16:45 | HO.PSYCHPN ---
Subjective Subjective Reason For Visit: Crisis Diagnostics Vital Signs (24Hr): Vital Signs - 24 hr 01/14/21 18:00 01/15/21 06:00 Temperature 98.4 F 98.1 F Pulse Rate 53 48 L Respiratory Rate 18 Blood Pressure 128/70 136/60 Pulse Oximetry 100 97 Body Mass Index 23.1 Labs Results: 01/01/21 22:07 01/01/21 22:07 Medications Medications Current Medications Acetaminophen (Acetaminophen 325 Mg Tablet) 650 mg PO Q6H PRN PRN Reason: Headache/Pain Mild Scale (1-3) Al Hydroxide/Mg Hydroxide (Magnesium Hydrox/Alum Hydrox 30 Ml Oral.Susp) 30 ml PO Q6H PRN PRN Reason: Heartburn/Nausea Benztropine Mesylate (Benztropine Mesylate 1 Mg Tablet) 1 mg PO TID PRN PRN Reason: Extrapyramidal Effects Ferrous Sulfate (Ferrous Sulfate 324 Mg Tablet.) 324 mg PO DAILY [facility] Last Admin: 01/15/21 08:35 Dose: Not Given Documented by: Folic Acid (Folic Acid 1 Mg Tablet) 1 mg PO DAILY [facility] Last Admin: 01/15/21 08:35 Dose: Not Given Documented by: Haloperidol (Haloperidol 5 Mg Tablet) 5 mg PO BID PRN PRN Reason: agitation,violence Hydroxyzine HCl (Hydroxyzine Hcl 25 Mg Tablet) 25 mg PO Q6H PRN PRN Reason: Anxiety Lurasidone HCl (Lurasidone Hcl 20 Mg Tablet) 20 mg PO BEDTIME [facility] Last Admin: 01/14/21 21:54 Dose: 20 mg Documented by: Magnesium Hydroxide (Milk Of Magnesia 30 Ml Oral.Susp) 30 ml PO DAILY PRN PRN Reason: Constipation Multivitamins/Vitamin C (Multivitamin Tablet) 1 tab PO DAILY [facility] Last Admin: 01/15/21 08:35 Dose: Not Given Documented by: Nicotine Polacrilex (Nicotine Polacrilex 2 Mg Gum) 2 mg BUCCAL Q2H PRN PRN Reason: Nicotine Cravings Pharmacy Consult (Consult Rx Perform Med Rec) 1 each MISCELLANE ONCE PRN PRN Reason: Consult order Trazodone HCl (Trazodone Hcl 50 Mg Tablet) 50 mg PO BEDTIME PRN PRN Reason: Insomnia Last Admin: 01/13/21 03:50 Dose: 50 mg Documented by: Allergies Allergies Allergy/AdvReac Type Severity Reaction Status Date / Time lamotrigine [From Lamictal] AdvReac Unknown Unknown Verified 01/01/21 20:31 Assessment & Plan Assessment & Plan (1) Bipolar disorder current episode depressed: Qualifiers: Current episode severity: severe Psychotic features: with psychotic features Qualified Code(s): F31.5 - Bipolar disorder, current episode depressed, severe, with psychotic features Status: Acute Code(s): F31.30 - Bipolar disorder, current episode depressed, mild or moderate severity, unspecified Assessment and Plan: continue latuda, titrate as tolerated (2) Seasonal affective disorder: Status: Acute Code(s): F33.8 - Other recurrent depressive disorders Assessment and Plan: Ambivalent about medications and effects seems to be glad Latuda was tolerable- did not take with food as no appetite ziprasodone was dced due to intolerance though ekg is ok - prior notes: Will draft a letter regarding admission to her employer who has requested this. Pt is ambivalent about treatment, has signed a three day notice of intent Thesis due Jan 2021. I have asked her to allow tw to draft a letter, asking for more time, so she may make a decision when feeling improved about leaving her program. She will consider. 01/06/21: Increase Geodon to 40 mg HS. Will file civil commitment on 01/07 should pt not retract TDN. She will give some thought to this and consult with legal advocate services. 01/07/21 TDN retracted Continue Geodon Lexapro 5 mg daily 01/08/21 TDN refiled Improvement noted Continue Geodon/Lexapro. 01/10/2021 Station Air Traffic [employer] Specialist covering; patient seen -Continue Geodon; however Will move Geodon to bedtime dosing since patient says it makes her too tired to take it dinner; will encourage a snack for absorption however it is better that she takes it without a snack than does not take it at all -Continue Lexapro: says she felt zooming when took Lexapro but says she will continue taking it 01/12/21: TDN expires 01/13. Pt considering continuing her admission. Family has encouraged her to remain, take medications, titrate dosing. 01/13/21: Civil commitment filing completed Discontinue Geodon Latuda 20 mg HS Discontinue Lexapro I spent minutes with the patient and/or on the patient floor today, greater than?50% of which was spent counseling/coordinating care.
[2021-01-15 17:45] VITALS: BP 137/62; PULSE 72; RESP 18; TEMP 36.9; O2SAT 98
[2021-01-15] MEDS: Haloperidol Lactate 5 MG/ML VIAL IM (19:22)
[2021-01-15] MEDS: LORazepam 2 MG/ML VIAL 1 MG IM (19:22)
[2021-01-15 19:25] VITALS: BP 157/80; PULSE 95; TEMP 36.5; O2SAT 96
[2021-01-15 19:40] VITALS: BP 135/80; PULSE 87; TEMP 36.3; O2SAT 96
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
[2021-01-15 19:55] VITALS: BP 129/81; PULSE 86; TEMP 36.8; O2SAT 95
[2021-01-15] MEDS: Benztropine Mesylate 1 MG TABLET PO (20:38)
--- NOTE | 2021-01-15 21:13 | PC.NURSE ---
Patient was offered PO medications from the nurse and she continued her exit seeking behavior. Pt had a successful elopement off the unit at approximately 18:00. A code assist was called and security was able to locate the patient within the hospital and return her to . Pt could not remain in good behavioral control and attempted elope the unit for a second time pusing through staff and dorrway. Nursing split leather department supervisor was notified. Patient was given medication restraint of 5mg of Haldol in LT deltoid at 19:12, patient given IM of Ativan 1mg in RT deltoid at 19:22. At approximately 19:25 patient was in mechanical restraints. Provider Emy Hernandez was notified of incident and she assessed and cleared patient. Vitals signs taken on pt which were WNL. Pt was offered PRN medications which she refused, pt was redirected multiple times, pt offered 1:1 intervention, Pt offered room change, pt offered activity change and she declined all suggestions. Pt mentioned, I want to leave this unit because I have court coming up .
--- NOTE | 2021-01-15 23:20 | PC.NURSE ---
Pt is seen sleeping around 4pm, meds given without any issues. Pt was up after few minutes, pacing the halls. Pt pushes staff and makes her way out of the unit door when door was unlocked for staff. Security alert and Pt was brought back to the unit. Pt was agitative and aggressive towards staff.Medical and mechanical restraint given with positive effect. 1mg of Ativan given with good effect. Providers Emy and Juliane aware.
[2021-01-16 06:00] VITALS: BP 155/89; PULSE 51; RESP 18; TEMP 36.7; O2SAT 98
--- NOTE | 2021-01-16 11:26 | HO.PSYCHPN ---
Subjective Subjective Date of Service: 01/16/21 Reason For Visit: Crisis Subjective Notes: Section 7 Healthcare Proxy: No Guardianship: No Medical Problems Affecting Mental Status: No Interim History: Patient complaining of chest pain sternal after restraint yesterday - fatigued and refuses to take haldol further- won't take as outpatient agrees to latuda, angry about dc lexapro and start of trileptal - gave her info about trileptal - I don't believe anything you guys tell me Medication Compliance: Intermittent Side effects from medications: Yes (fatigued and drugged feeling from haldol) Attending Groups: No Review of Systems Acute medical concerns: Yes co chest pain/musculoskeletal Review of Systems: as above Mental Status Exam Mental Status Exam Patient Appearance: Disheveled and Unkempt Patient Orientation: Person, Place and Situation Level of Consciousness: Drowsy Patient Behavior: Guarded, Resistive to Care and Poor Eye Contact Mood Description: Angry Affect Description: Blunted Patient Cognition Impaired: No Ability to Follow Directions: Fair Speech Pattern: Soft-Spoken Hallucinations: None Delusions: Paranoid Ideation Thought Process: Intact and Goal Oriented Thought Content: positive for Preoccupation, positive for Evasive and positive for Suicidal Ideation Depressive Symptoms: Increased Irritability, Hopelessness, Unhappiness, Thoughts of /Suicide and Loss of Energy Judgement: Poor Diagnostics Vital Signs (24Hr): Vital Signs - 24 hr 01/15/21 17:45 01/15/21 19:25 01/15/21 19:40 Temperature 98.5 F 97.7 F 97.3 F Pulse Rate 72 95 87 Respiratory Rate 18 Blood Pressure 137/62 157/80 H 135/80 Pulse Oximetry 98 96 96 01/15/21 19:55 01/16/21 06:00 Temperature 98.3 F 98.1 F Pulse Rate 86 51 Respiratory Rate 18 Blood Pressure 129/81 155/89 H Pulse Oximetry 95 98 Body Mass Index 23.1 Labs Results: 01/01/21 22:07 01/01/21 22:07 Imaging Radiology Impressions: [facility] [address] [place] [address] XRay Report Signed Patient: Penny Yoder MR#: [id number] : 1965 Acct:[id number] Age/Sex: 55 / F ADM Date: 01/02/21 Loc: .PM5 507-[address]: Juliane Gomez APRN Ordering Physician: Cat Espinoza MD Date of Service: 01/16/21 Procedure(s): XR chest 1V Accession Number(s): [id number] cc: Cat Espinoza MD~ EXAMINATION: XR CHEST CLINICAL INFORMATION: Chest pain. Status post restrain. COMPARISON: None TECHNIQUE: Frontal view of the chest was obtained. FINDINGS: The lungs are well-expanded and clear of acute pneumonic process. There is mild bronchovascular markings with peribronchial wall thickening likely reactive small airway disease. There is no pleural effusion. The heart size and pulmonary vascularity is normal. No gross bony abnormality seen Medications Medications Current Medications Acetaminophen (Acetaminophen 325 Mg Tablet) 650 mg PO Q6H PRN PRN Reason: Headache/Pain Mild Scale (1-3) Al Hydroxide/Mg Hydroxide (Magnesium Hydrox/Alum Hydrox 30 Ml Oral.Susp) 30 ml PO Q6H PRN PRN Reason: Heartburn/Nausea Benztropine Mesylate (Benztropine Mesylate 1 Mg Tablet) 1 mg PO TID PRN PRN Reason: Extrapyramidal Effects Last Admin: 01/15/21 20:38 Dose: 1 mg Documented by: Diphenhydramine HCl (Diphenhydramine Hcl 25 Mg Tablet) 50 mg PO Q6H PRN PRN Reason: EPS Ferrous Sulfate (Ferrous Sulfate 324 Mg Tablet.) 324 mg PO DAILY [facility] Last Admin: 01/15/21 08:35 Dose: Not Given Documented by: Folic Acid (Folic Acid 1 Mg Tablet) 1 mg PO DAILY [facility] Last Admin: 01/15/21 08:35 Dose: Not Given Documented by: Haloperidol (Haloperidol 5 Mg Tablet) 5 mg PO QID PRN PRN Reason: agitation,violence Haloperidol (Haloperidol 5 Mg Tablet) 10 mg PO BID [facility] Last Admin: 01/15/21 22:46 Dose: Not Given Documented by: Hydroxyzine HCl (Hydroxyzine Hcl 25 Mg Tablet) 25 mg PO Q6H PRN PRN Reason: Anxiety Magnesium Hydroxide (Milk Of Magnesia 30 Ml Oral.Susp) 30 ml PO DAILY PRN PRN Reason: Constipation Multivitamins/Vitamin C (Multivitamin Tablet) 1 tab PO DAILY [facility] Last Admin: 01/15/21 08:35 Dose: Not Given Documented by: Nicotine Polacrilex (Nicotine Polacrilex 2 Mg Gum) 2 mg BUCCAL Q2H PRN PRN Reason: Nicotine Cravings Oxcarbazepine (Oxcarbazepine 300 Mg Tablet) 300 mg PO BID [facility] Last Admin: 01/15/21 22:47 Dose: Not Given Documented by: Pharmacy Consult (Consult Rx Perform Med Rec) 1 each MISCELLANE ONCE PRN PRN Reason: Consult order Trazodone HCl (Trazodone Hcl 50 Mg Tablet) 50 mg PO BEDTIME PRN PRN Reason: Insomnia Last Admin: 01/13/21 03:50 Dose: 50 mg Documented by: Allergies Allergies Allergy/AdvReac Type Severity Reaction Status Date / Time lamotrigine [From Lamictal] AdvReac Unknown Unknown Verified 01/01/21 20:31 Benzodiazepines AdvReac pt asks Verified 01/15/21 18:18 for no benzos due to her addiction history Assessment & Plan Assessment & Plan (1) Bipolar disorder current episode depressed: Qualifiers: Current episode severity: severe Psychotic features: with psychotic features Qualified Code(s): F31.5 - Bipolar disorder, current episode depressed, severe, with psychotic features Status: Acute Code(s): F31.30 - Bipolar disorder, current episode depressed, mild or moderate severity, unspecified Assessment and Plan: dc scheduled haldol continue prn haldol returned latuda to 40mg at dinner gave patient information re trileptal (2) Seasonal affective disorder: Status: Acute Code(s): F33.8 - Other recurrent depressive disorders Assessment and Plan: Ambivalent about medications and effects seems to be glad Latuda was tolerable- did not take with food as no appetite ziprasodone was dced due to intolerance though ekg is ok - prior notes: Will draft a letter regarding admission to her employer who has requested this. Pt is ambivalent about treatment, has signed a three day notice of intent Thesis due Jan 2021. I have asked her to allow tw to draft a letter, asking for more time, so she may make a decision when feeling improved about leaving her program. She will consider. 01/06/21: Increase Geodon to 40 mg HS. Will file civil commitment on 01/07 should pt not retract TDN. She will give some thought to this and consult with legal advocate services. 01/07/21 TDN retracted Continue Geodon Lexapro 5 mg daily 01/08/21 TDN refiled Improvement noted Continue Geodon/Lexapro. 01/10/2021 [employer] covering; patient seen -Continue Geodon; however Will move Geodon to bedtime dosing since patient says it makes her too tired to take it dinner; will encourage a snack for absorption however it is better that she takes it without a snack than does not take it at all -Continue Lexapro: says she felt zooming when took Lexapro but says she will continue taking it 01/12/21: TDN expires 01/13. Pt considering continuing her admission. Family has encouraged her to remain, take medications, titrate dosing. 01/13/21: Civil commitment filing completed Discontinue Geodon Latuda 20 mg HS Discontinue Lexapro 01/15/21 Significant evening agitation with two elopement episodes, requiring IM medications. Pt is reluctant to titrate regime of Latuda. Currently it is not effective in symptom mgt at 20 mg. She refuses increase so we will need to change regime. Plan: Discontinue Latuda Haldol 10 mg bid Trileptal 300 mg bid 01/15/21: documentation per restraint protocol. patient seen and assessed for safety. 01/16/21 agreed to latuda , change haldol to prn, and got chest xr to r/o any rib fracture- s/p restraint- prn ibuprofen for musculoskeletal pain given information re trileptal continue trileptal with latuda I spent minutes with the patient and/or on the patient floor today, greater than?50% of which was spent counseling/coordinating care. Reason for contiued inpatient stay Substantial Risk for: harm to self and rapid decompensation
[2021-01-16] MEDS: Lurasidone HCl 40 MG TABLET PO (16:50)
[2021-01-16 18:00] VITALS: BP 149/77; PULSE 76; TEMP 37.1
[2021-01-16] MEDS: OXcarbazepine 150 MG TABLET PO (20:30)
[2021-01-17 06:00] VITALS: BP 103/71; PULSE 72; RESP 16; O2SAT 95
--- NOTE | 2021-01-17 11:05 | P.PNPSI_ITS ---
Subjective Subjective Date of Service: 01/17/21 Reason For Visit: Crisis Subjective Notes: Section 7 Healthcare Proxy: No Guardianship: No Medical Problems Affecting Mental Status: No Interim History: Patient angry and fatigued, feels nothing she says makes a difference, though I point out to her that I did change her back to latuda and off haldol at her request and lowered trileptal at her request- despite being given information about meds and her own complaint of depression with si- Medication Compliance: Intermittent Side effects from medications: Yes (tired/sedated) Attending Groups: No Review of Systems Acute medical concerns: No Medical Review of Systems: unchanged Mental Status Exam Mental Status Exam Patient Appearance: Unkempt Patient Orientation: Person, Place and Situation Level of Consciousness: Awake Patient Behavior: Guarded, Resistive to Care and Poor Eye Contact Mood Description: Angry Affect Description: Blunted Patient Cognition Impaired: No Ability to Follow Directions: Fair Speech Pattern: Soft-Spoken Hallucinations: None Delusions: Paranoid Ideation Thought Process: Intact and Goal Oriented Thought Content: positive for Preoccupation, positive for Evasive and positive for Suicidal Ideation Depressive Symptoms: Increased Irritability, Hopelessness, Unhappiness, Thoughts of /Suicide and Loss of Energy Judgement: Poor Diagnostics Vital Signs (24Hr): Vital Signs - 24 hr 01/16/21 18:00 01/17/21 06:00 Temperature 98.8 F Pulse Rate 76 72 Respiratory Rate 16 Blood Pressure 149/77 H 103/71 Pulse Oximetry 95 Body Mass Index 23.1 Labs Results: 01/01/21 22:07 01/01/21 22:07 Imaging Radiology Impressions: [facility] Impressions Chest X-Ray 01/16/21 12:47 IMPRESSION: No acute pneumonic process. Likely mild reactive small airway disease. Medications Medications Current Medications Acetaminophen (Acetaminophen 325 Mg Tablet) 650 mg PO Q6H PRN PRN Reason: Headache/Pain Mild Scale (1-3) Al Hydroxide/Mg Hydroxide (Magnesium Hydrox/Alum Hydrox 30 Ml Oral.Susp) 30 ml PO Q6H PRN PRN Reason: Heartburn/Nausea Benztropine Mesylate (Benztropine Mesylate 1 Mg Tablet) 1 mg PO TID PRN PRN Reason: Extrapyramidal Effects Last Admin: 01/15/21 20:38 Dose: 1 mg Documented by: Diphenhydramine HCl (Diphenhydramine Hcl 25 Mg Tablet) 50 mg PO Q6H PRN PRN Reason: EPS Ferrous Sulfate (Ferrous Sulfate 324 Mg Tablet.) 324 mg PO DAILY [facility] Last Admin: 01/17/21 08:59 Dose: Not Given Documented by: Folic Acid (Folic Acid 1 Mg Tablet) 1 mg PO DAILY [facility] Last Admin: 01/17/21 08:59 Dose: Not Given Documented by: Haloperidol (Haloperidol 5 Mg Tablet) 5 mg PO QID PRN PRN Reason: agitation,violence Hydroxyzine HCl (Hydroxyzine Hcl 25 Mg Tablet) 25 mg PO Q6H PRN PRN Reason: Anxiety Ibuprofen (Ibuprofen 600 Mg Tablet) 600 mg PO Q6H PRN PRN Reason: moderate pain Lurasidone HCl (Lurasidone Hcl 40 Mg Tablet) 40 mg PO DAILY@1700 [facility] Last Admin: 01/16/21 16:50 Dose: 40 mg Documented by: Magnesium Hydroxide (Milk Of Magnesia 30 Ml Oral.Susp) 30 ml PO DAILY PRN PRN Reason: Constipation Multivitamins/Vitamin C (Multivitamin Tablet) 1 tab PO DAILY [facility] Last Admin: 01/17/21 08:59 Dose: Not Given Documented by: Nicotine Polacrilex (Nicotine Polacrilex 2 Mg Gum) 2 mg BUCCAL Q2H PRN PRN Reason: Nicotine Cravings Oxcarbazepine (Oxcarbazepine 150 Mg Tablet) 150 mg PO TID [facility] Last Admin: 01/17/21 08:59 Dose: Not Given Documented by: Pharmacy Consult (Consult Rx Perform Med Rec) 1 each MISCELLANE ONCE PRN PRN Reason: Consult order Trazodone HCl (Trazodone Hcl 50 Mg Tablet) 50 mg PO BEDTIME PRN PRN Reason: Insomnia Last Admin: 01/13/21 03:50 Dose: 50 mg Documented by: Allergies Allergies Allergy/AdvReac Type Severity Reaction Status Date / Time lamotrigine [From Lamictal] AdvReac Unknown Unknown Verified 01/01/21 20:31 Benzodiazepines AdvReac pt asks Verified 01/15/21 18:18 for no benzos due to her addiction history Assessment & Plan Assessment & Plan (1) Bipolar disorder current episode depressed: Qualifiers: Current episode severity: severe Psychotic features: with psychotic features Qualified Code(s): F31.5 - Bipolar disorder, current episode d epressed, severe, with psychotic features Status: Acute Code(s): F31.30 - Bipolar disorder, current episode depressed, mild or moderate severity, unspecified Assessment and Plan: Per patient complaint lowered trileptal to 150mg bid still not sure she will agree to try taking latuda 40mg not taking prns (2) Seasonal affective disorder: Status: Acute Code(s): F33.8 - Other recurrent depressive disorders Assessment and Plan: ongoing Ambivalent about medications and effects angry and irritable re being kept here, re medications, but also depressed and hopeless hx failed lexapro trial now on latuda and ? trileptal if she will take 01/13/21: Civil commitment filing completed Discontinue Geodon Latuda 20 mg HS Discontinue Lexapro 01/15/21 Significant evening agitation with two elopement episodes, requiring IM medications. Pt is reluctant to titrate regime of Latuda. Currently it is not effective in symptom mgt at 20 mg. She refuses increase so we will need to change regime. Plan: Discontinue Latuda Haldol 10 mg bid Trileptal 300 mg bid 01/15/21: documentation per restraint protocol. patient seen and assessed for safety. 01/16/21 agreed to latuda , change haldol to prn, and got chest xr to r/o any rib fracture- s/p restraint- prn ibuprofen for musculoskeletal pain given information re trileptal continue trileptal with latuda 01/17/21 feels no matter what she says we will do what we want- sit at latuda 40mg and trial trileptal - then pending court- I spent minutes with the patient and/or on the patient floor today, greater than?50% of which was spent counseling/coordinating care. Patient educated on: medication risk/benefits Informed Consent: further education needed Reason for contiued inpatient stay Substantial Risk for: harm to self, inability to function and rapid decompensation
[2021-01-17 17:10] VITALS: BP 135/77; PULSE 64; TEMP 37.1
[2021-01-17] MEDS: Lurasidone HCl 40 MG TABLET PO (17:25)
[2021-01-17] MEDS: OXcarbazepine 150 MG TABLET PO (20:17)
[2021-01-18 06:00] VITALS: BP 145/69; PULSE 55; RESP 16; TEMP 36.8; O2SAT 97
[2021-01-18] MEDS: OXcarbazepine 150 MG TABLET PO ×2 (12:11→20:02)
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
[2021-01-18] MEDS: Lurasidone HCl 40 MG TABLET PO (17:31)
[2021-01-18 17:42] VITALS: BP 141/81; PULSE 74; TEMP 36.7; O2SAT 99
[2021-01-19 06:00] VITALS: BP 147/83; PULSE 61; TEMP 36.7
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
[2021-01-19] MEDS: OXcarbazepine 150 MG TABLET PO ×2 (12:42→22:02)
[2021-01-19 18:00] VITALS: TEMP 36.5
[2021-01-19] MEDS: Lurasidone HCl 40 MG TABLET PO (18:00)
--- NOTE | 2021-01-19 18:04 | PC.NURSE ---
PT reports sneezing, congestion and runny nose that started today 01/19. COVID swab submitted to lab per Dr. Sanchez's order. No further orders at this time.
[2021-01-19 18:14] LABS: COVID-19 Test Negative (Negative)
[2021-01-20 05:57] VITALS: BP 124/86; PULSE 56; RESP 15; TEMP 36.6; O2SAT 98
[2021-01-20] MEDS: OXcarbazepine 150 MG TABLET PO ×2 (12:11→21:50)
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
[2021-01-20] MEDS: Lurasidone HCl 40 MG TABLET PO (17:21)
[2021-01-20 18:00] VITALS: BP 121/78; PULSE 58; TEMP 36.4; O2SAT 98
[2021-01-21 06:00] VITALS: BP 148/78; PULSE 99; TEMP 36.3; O2SAT 99
[2021-01-21 07:00] VITALS: BMI 25.0
--- NOTE | 2021-01-21 10:30 | P.PNPSI_ITS ---
Subjective Subjective Date of Service: 01/21/21 Reason For Visit: Crisis Subjective Notes: Section 7 Interim History: Pt somewhat guarded and upset. Pt reports she made biggest mistake by coming to hospital. Pt reports she does not usually disclose much information to her family about her mental health and now team has communicated with them. Pt denies SI/HI. Pt continues to present as guarded especially when trying to understand her statements related to master plan. Pt does admit that she did think she was being followed but would not share any more details as she believes it will be use against her. Pt reports medication helpful but at same time pt reporting she is being forced or coerced into taking medications despite admitting that she has been suffering from depression, unable to concentrate. Pt not fully forthcoming, still very suspicious about hospital and staff and intentions of hospital and her family by sharing their concerns and need for treatment. Pt states she is worried about medication's side effects and that she is sensitive to them. When trying to rationalize as to benefit of medication much greater than a milder side effect (temporary nausea compared to reducing suicidality and severe depression suspect fueled by underlying delusional content), pt still unable to see need for treatment and suspects hospital has its own gains by going to court. Pt very guarded and careful as to how she would provide information and therefore not forthcoming Medication Compliance: Intermittent Review of Systems Review of Systems Yes all other systems are reviewed and are negative Reports behavioral changes, Reports confusion and Reports memory loss Psychiatric: Reports abnormal sleep pattern, Reports anxiety, Reports behavioral changes, Reports change in appetite, Reports confusion, Reports depression, Reports difficulty concentrating, Reports auditory hallucinations, Reports hopelessness, Reports irritability, Reports anhedonia, Reports memory loss, Reports mood swings, Reports paranoia and Reports suicidal ideation Allergic/Immunologic: Reports no additional allergic/immunologic complaints Mental Status Exam Mental Status Exam Narrative: A&Ox3. Pt in casual attire, thin, not malodorous. Poor eye contact, attentive. No Tics or Tremors. No abnormal involuntary movements. Agitated, difficult to engage in conversation. Non-pressured speech, spontaneous with regular rate and rhythm, normal volume and prosody. No prolonged speech latency or dysarthria. Mood is [refused to state], affect is dysphoric, irritable. Endorses SI but denies plan or intent/ no SIB/ denies HI upon inquiry. Denies A/VH or delusional thought content. Thoughts are perseverative, diffiuclt to redirect. No known cognitive or memory impairment. Insight/ Judgment poor at the time of incident. Diagnostics Vital Signs (24Hr): Vital Signs - 24 hr 01/22/21 05:44 Temperature 97.5 F Pulse Rate 56 Respiratory Rate 18 Blood Pressure 133/91 H Pulse Oximetry 98 BMI result Body Mass Index 25.0 Labs Results: 01/01/21 22:07 01/01/21 22:07 Imaging Radiology Impressions: ITS Impressions Chest X-Ray 01/16/21 12:47 IMPRESSION: No acute pneumonic process. Likely mild reactive small airway disease. Medications Medications Current Medications Acetaminophen (Acetaminophen 325 Mg Tablet) 650 mg PO Q6H PRN PRN Reason: Headache/Pain Mild Scale (1-3) Al Hydroxide/Mg Hydroxide (Magnesium Hydrox/Alum Hydrox 30 Ml Oral.Susp) 30 ml PO Q6H PRN PRN Reason: Heartburn/Nausea Benztropine Mesylate (Benztropine Mesylate 0.5 Mg Tablet) 0.5 mg PO TID PRN PRN Reason: Extrapyramidal Effects Diphenhydramine HCl (Diphenhydramine Hcl 25 Mg Tablet) 50 mg PO Q6H PRN PRN Reason: EPS Ferrous Sulfate (Ferrous Sulfate 324 Mg Tablet.Dr) 324 mg PO DAILY [facility] Last Admin: 01/22/21 08:08 Dose: Not Given Documented by: Folic Acid (Folic Acid 1 Mg Tablet) 1 mg PO DAILY [facility] Last Admin: 01/22/21 08:09 Dose: Not Given Documented by: Haloperidol (Haloperidol 5 Mg Tablet) 5 mg PO QID PRN PRN Reason: agitation,violence Hydroxyzine HCl (Hydroxyzine Hcl 25 Mg Tablet) 25 mg PO Q6H PRN PRN Reason: Anxiety Ibuprofen (Ibuprofen 600 Mg Tablet) 600 mg PO Q6H PRN PRN Reason: moderate pain Lurasidone HCl (Lurasidone Hcl 40 Mg Tablet) 40 mg PO DAILY@1700 [facility] Last Admin: 01/21/21 15:47 Dose: 40 mg Documented by: Magnesium Hydroxide (Milk Of Magnesia 30 Ml Oral.Susp) 30 ml PO DAILY PRN PRN Reason: Constipation Multivitamins/Vitamin C (Multivitamin Tablet) 1 tab PO DAILY [facility] Last Admin: 01/22/21 08:09 Dose: Not Given Documented by: Nicotine Polacrilex (Nicotine Polacrilex 2 Mg Gum) 2 mg BUCCAL Q2H PRN PRN Reason: Nicotine Cravings Oxcarbazepine (Oxcarbazepine 150 Mg Tablet) 150 mg PO 1200,2100 [facility] Last Admin: 01/21/21 20:13 Dose: 150 mg Documented by: Pharmacy Consult (Consult Rx Perform Med Rec) 1 each MISCELLANE ONCE PRN PRN Reason: Consult order Trazodone HCl (Trazodone Hcl 50 Mg Tablet) 50 mg PO BEDTIME PRN PRN Reason: Insomnia Last Admin: 01/13/21 03:50 Dose: 50 mg Documented by: Allergies Allergies Allergy/AdvReac Type Severity Reaction Status Date / Time lamotrigine [From Lamictal] AdvReac Unknown Unknown Verified 01/01/21 20:31 Benzodiazepines AdvReac pt asks Verified 01/15/21 18:18 for no benzos due to her addiction history Assessment & Plan Assessment & Plan (1) Bipolar disorder current episode depressed: Qualifiers: Current episode severity: severe Psychotic features: with psychotic features Qualified Code(s): F31.5 - Bipolar disorder, current episode depressed, severe, with psychotic features Status: Acute Code(s): F31.30 - Bipolar disorder, current episode depressed, mild or moderate severity, unspecified Assessment and Plan: Per patient complaint lowered trileptal to 150mg bid still not sure she will agree to try taking latuda 40mg not taking prns Review of elopement incidents of 01/15/21, use of medications and rationale and risk pt placed herself in. (2) Seasonal affective disorder: Status: Acute Code(s): F33.8 - Other recurrent depressive disorders Assessment and Plan: ongoing Ambivalent about medications and effects angry and irritable re being kept here, re medications, but also depressed and hopeless hx failed lexapro trial now on latuda and ? trileptal if she will take 01/13/21: Civil commitment filing completed Discontinue Geodon Latuda 20 mg HS Discontinue Lexapro 01/15/21 Significant evening agitation with two elopement episodes, requiring IM medicati ons. Pt is reluctant to titrate regime of Latuda. Currently it is not effective in symptom mgt at 20 mg. She refuses increase so we will need to change regime. Plan: Discontinue Latuda Haldol 10 mg bid Trileptal 300 mg bid 01/15/21: documentation per restraint protocol. patient seen and assessed for safety. 01/16/21 agreed to latuda , change haldol to prn, and got chest xr to r/o any rib fracture- s/p restraint- prn ibuprofen for musculoskeletal pain given information re trileptal continue trileptal with latuda 01/17/21 feels no matter what she says we will do what we want- sit at latuda 40mg and trial trileptal - then pending court- 01/18/21 Continue current regime 01/20/21 Continue current regime [facility]IR[facility] pending Addiction Medicine will send a assistant wrestling coach to meet with pt. 01/21: continues to present guarded, thinks hospital and family agains her. despite admitting s/s of depression unable to work, worried about taking medications despite no evidence of side effect and potential benefit of reducing severe depression/suicidal thoughts which suspect are product of underlying delu sional content. no changes to medications. I spent minutes with the patient and/or on the patient floor today, greater than?50% of which was spent counseling/coordinating care. Reason for contiued inpatient stay Substantial Risk for: harm to self and inability to function
--- NOTE | 2021-01-21 10:57 | MHC.RECOVRN ---
Met with pt after request for [employer] and AA materials. Pt reports being in recovery x 3 years and states not going to meetings is driving me crazy. Pt provided with [employer] to borrow as well as [facility] and resources to keep. Pt interested in attending any AA meeting, including virtual. Pt states not going is hurting me. Pt interested in Hair Assistant, t/w will facilitate success coach meeting with pt this evening. SW aware.
[2021-01-21] MEDS: OXcarbazepine 150 MG TABLET PO ×2 (12:13→20:13)
[2021-01-21] MEDS: Lurasidone HCl 40 MG TABLET PO (15:47)
[2021-01-22 05:44] VITALS: BP 133/91; PULSE 56; RESP 18; TEMP 36.4; O2SAT 98
[2021-01-22] MEDS: OXcarbazepine 150 MG TABLET PO (11:09)
[2021-01-22 18:00] VITALS: BP 140/74; PULSE 73; TEMP 36.4
[2021-01-22] MEDS: Lurasidone HCl 40 MG TABLET PO (18:03)
--- NOTE | 2021-01-22 18:16 | P.PNPSI_ITS ---
Subjective Subjective Date of Service: 01/22/21 Reason For Visit: Crisis Subjective Notes: Section 7 Healthcare Proxy: No Guardianship: No Medical Problems Affecting Mental Status: No Interim History: Perseverative. Discussed team putting family against her to testify. Review of Section VII process and goals. Discussed medications. Feels Trileptal is making her too sedate and hungry. Reports 12 lb gain since admit- initially lost 5 lbs, so ~7lb delta. Discussed pt restricting then overeating to be contributing to unstable weight values. Discussed decreasing Trileptal to 150 mg for two days, then discontinuing and titrating Latuda to 20 mg am. and keeping 40 mg in the evening. She agrees to trial. Later in the day pt reports she learned that she is homeless as her friend sent her back her deposit as pt had not been in contact. Offered pt to call or draft a letter validating [facility] to clarify-she was not sure what she wanted to do. Told her we would leave this offer open until she made a decision. Also, asked if team would allow her to use her computer to send a resume for a job-they will offer her some time later in the day to assist. Team reports pt at times is fixated on going to residential, asking about meaning of Section XXXV, VII, VIII, XII. Medication Compliance: Yes Side effects from medications: Yes (feeling tired and hungry-reports weight gain from Trileptal) Attending Groups: Intermittent Review of Systems Acute medical concerns: No Medical Review of Systems: unchanged Review of Systems Reports behavioral changes Psychiatric: Reports anxiety, Reports behavioral changes, Reports change in appetite, Reports depression, Reports difficulty concentrating, Reports hopelessness, Reports irritability, Reports anhedonia, Reports mood swings, Reports paranoia and Reports suicidal ideation Mental Status Exam Mental Status Exam Patient Appearance: Fatigued and Disheveled Patient Orientation: Person, Place, Time and Situation Level of Consciousness: Alert Patient Behavior: Appropriate, Guarded, Talkative, Cooperative, Suspicious, Wandering, Anxious, Resistive to Care, Fatigued, Distractible and Impulsive Mood Description: Depressed and Angry Affect Description: Labile Patient Cognition Impaired: No Ability to Follow Directions: Good Speech Pattern: Perseverating, Spontaneous Speech and Soft-Spoken Memory Description: Episodic Impaired Hallucinations: None (denies) Delusions: Paranoid Ideation Perceptual Disturbances: Depersonalization and Derealization Thought Process: Distracted and Rumination Thought Content: positive for [place], positive for Circumstantial, positive for Perseveration and positive for Suicidal Ideation Depressive Symptoms: Increased Anxiety, Diff. Making Decisions, Increased Irritability, Loss of Int. in Activity, Hopelessness, Unhappiness, Increased Fatigue, Thoughts of /Suicide, Low Self Esteem, Loss of Energy and Difficulty Concentrating Judgement: Poor Diagnostics Vital Signs (24Hr): Vital Signs - 24 hr 01/22/21 05:44 01/22/21 18:00 Temperature 97.5 F 97.6 F Pulse Rate 56 73 Respiratory Rate 18 Blood Pressure 133/91 H 140/74 H Pulse Oximetry 98 BMI result Body Mass Index 25.0 Labs Results: 01/01/21 22:07 01/01/21 22:07 Imaging Radiology Impressions: ITS Impressions Chest X-Ray 01/16/21 12:47 IMPRESSION: No acute pneumonic process. Likely mild reactive small airway disease. Medications Medications Current Medications Acetaminophen (Acetaminophen 325 Mg Tablet) 650 mg PO Q6H PRN PRN Reason: Headache/Pain Mild Scale (1-3) Al Hydroxide/Mg Hydroxide (Magnesium Hydrox/Alum Hydrox 30 Ml Oral.Susp) 30 ml PO Q6H PRN PRN Reason: Heartburn/Nausea Benztropine Mesylate (Benztropine Mesylate 0.5 Mg Tablet) 0.5 mg PO TID PRN PRN Reason: Extrapyramidal Effects Diphenhydramine HCl (Diphenhydramine Hcl 25 Mg Tablet) 50 mg PO Q6H PRN PRN Reason: EPS Ferrous Sulfate (Ferrous Sulfate 324 Mg Tablet.) 324 mg PO DAILY [facility] Last Admin: 01/22/21 08:08 Dose: Not Given Documented by: Folic Acid (Folic Acid 1 Mg Tablet) 1 mg PO DAILY [facility] Last Admin: 01/22/21 08:09 Dose: Not Given Documented by: Haloperidol (Haloperidol 5 Mg Tablet) 5 mg PO QID PRN PRN Reason: agitation,violence Hydroxyzine HCl (Hydroxyzine Hcl 25 Mg Tablet) 25 mg PO Q6H PRN PRN Reason: Anxiety Ibuprofen (Ibuprofen 600 Mg Tablet) 600 mg PO Q6H PRN PRN Reason: moderate pain Lurasidone HCl (Lurasidone Hcl 40 Mg Tablet) 40 mg PO DAILY@1700 [facility] Last Admin: 01/22/21 18:03 Dose: 40 mg Documented by: Lurasidone HCl (Lurasidone Hcl 20 Mg Tablet) 20 mg PO DAILY [facility] Magnesium Hydroxide (Milk Of Magnesia 30 Ml Oral.Susp) 30 ml PO DAILY PRN PRN Reason: Constipation Multivitamins/Vitamin C (Multivitamin Tablet) 1 tab PO DAILY [facility] Last Admin: 01/22/21 08:09 Dose: Not Given Documented by: Nicotine Polacrilex (Nicotine Polacrilex 2 Mg Gum) 2 mg BUCCAL Q2H PRN PRN Reason: Nicotine Cravings Oxcarbazepine (Oxcarbazepine 150 Mg Tablet) 150 mg PO DAILY [facility] Stop: 01/25/21 09:00 Pharmacy Consult (Consult Rx Perform Med Rec) 1 each MISCELLANE ONCE PRN PRN Reason: Consult order Trazodone HCl (Trazodone Hcl 50 Mg Tablet) 50 mg PO BEDTIME PRN PRN Reason: Insomnia Last Admin: 01/13/21 03:50 Dose: 50 mg Documented by: Allergies Allergies Allergy/AdvReac Type Severity Reaction Status Date / Time lamotrigine [From Lamictal] AdvReac Unknown Unknown Verified 01/01/21 20:31 Benzodiazepines AdvReac pt asks Verified 01/15/21 18:18 for no benzos due to her addiction history Assessment & Plan Assessment & Plan (1) Bipolar disorder current episode depressed: Qualifiers: Current episode severity: severe Psychotic features: with psychotic features Qualified Code(s): F31.5 - Bipolar disorder, current episode depressed, severe, with psychotic features Status: Acute Code(s): F31.30 - Bipolar disorder, current episode depressed, mild or moderate severity, unspecified (2) Seasonal affective disorder: Status: Acute Code(s): F33.8 - Other recurrent depressive disorders Assessment and Plan: ongoing Ambivalent about medications and effects angry and irritable re being kept here, re medications, but also depressed and hopeless hx failed lexapro trial now on latuda and ? trileptal if she will take 01/13/21: Civil commitment filing completed Discontinue Geodon Latuda 20 mg HS Discontinue Lexapro 01/15/21 Significant evening agitation with two elopement episodes, requiring IM medications. Pt is reluctant to titrate regime of Latuda. Currently it is not effective in symptom mgt at 20 mg. She refuses increase so we will need to change regime. Plan: Discontinue Latuda Haldol 10 mg bid Trileptal 300 mg bid 01/15/21: documentation per restraint protocol. patient seen and assessed for safety. 01/16/21 agreed to latuda , change haldol to prn, and got chest xr to r/o any rib fracture- s/p restraint- prn ibuprofen for musculoskeletal pain given information re trileptal continue trileptal with latuda 01/17/21 feels no matter what she says we will do what we want- sit at latuda 40mg and trial trileptal - then pending court- 01/18/21 Continue current regime 01/20/21 Continue current regime [facility] pending Addiction Medicine will send a investment recovery technician to meet with pt. 01/21: continues to present guarded, thinks hospital and family agains her. despite admitting s/s of depression unable to work, worried about taking medications despite no evidence of side effect and potential benefit of reducing severe depression/suicidal thoughts which suspect are product of underlying delusional content. no changes to medications. 01/22/21: Decrease Trileptal to 150 mg daily for two days then discontinue Increase Latuda to 20 mg a.m. and continue 40 mg in the evening. (Pt requesting splitting of the dosage) Offer support for current housing issues Court 01/28/21. I spent 30 minutes with the patient and/or on the patient floor today, greater than?50% of which was spent counseling/coordinating care. Patient educated on: medication risk/benefits and therapeutic strategies Informed Consent: further education needed Reason for contiued inpatient stay Substantial Risk for: harm to self, inability to function and rapid decompensation
[2021-01-23 06:00] VITALS: BP 135/73; PULSE 51; RESP 18; TEMP 36.4; O2SAT 99
[2021-01-23] MEDS: Lurasidone HCl 20 MG TABLET PO (09:20)
[2021-01-23] MEDS: OXcarbazepine 150 MG TABLET PO (12:18)
[2021-01-23] MEDS: Lurasidone HCl 40 MG TABLET PO (15:54)
--- NOTE | 2021-01-23 19:15 | MHC.RECOVSUP ---
I was able to connect with patient and review strategies that will promote change. Patient was looking for resources in custodial treatment for RADHA with alcohol. I was able to suggest supportive tools, coping skills and harm reduction strategies. We read a chapter from the Big Book of Alcoholics Anonymous and had an open discussion. I will follow up during the week.
[2021-01-24 08:13] VITALS: BP 145/90; PULSE 53; TEMP 36.8; O2SAT 98
--- NOTE | 2021-01-24 08:31 | P.PNPSI_ITS ---
Subjective Subjective Date of Service: 01/23/21 Reason For Visit: Crisis Interim History: Patient seen and discussed with team. Patient evaluated this morning and upon interview she reports she feels tired, attributes this to her trileptal. Says her latuda was increased today. Mood is okay. Appetite is too much. Says she feels totally bummed about finding out im homeless on monday, as she reports she was all set to move into a place, but missed calls from the person helping her with this and lost the apartment. Says she is trying to be optimistic that it will all work out. Will discuss housing situation with SW. In the milieu, patient is visible, ambulating in the hallway, dysphoric affect. Denies SI/SIB/HI upon inquiry. Denies irritability or assaultive ideation. Medication Compliance: Yes Side effects from medications: Yes Attending Groups: Intermittent Review of Systems Acute medical concerns: No Medical Review of Systems: unchanged Mental Status Exam Mental Status Exam Narrative: Appearance:?Fatigued and Disheveled Patient Orientation:?Person, Place, Time and Situation Level of Consciousness:?Alert Patient Behavior:?Appropriate, Guarded, Talkative, Cooperative, Suspicious, Wandering, Anxious, Resistive to Care, Fatigued, Distractible and Impulsive Mood Description:?Depressed and Angry Affect Description:?Labile Patient Cognition Impaired:?No Ability to Follow Directions:?Good Speech Pattern:?Perseverating, Spontaneous Speech and Soft-Spoken Memory Description:?Episodic Impaired Hallucinations:?None (denies) Delusions:?Paranoid Ideation Perceptual Disturbances:?Depersonalization and Derealization Thought Process:?Distracted and Rumination Thought Content:?positive for [place], positive for [place]um[place], positive for Perseveration and positive for Suicidal Ideation Depressive Symptoms:?Increased Anxiety, Diff. Making Decisions, Increased Irritability, Loss of Int. in Activity, Hopelessness, Unhappiness, Increased Fatigue, Thoughts of /Suicide, Low Self Esteem, Loss of Energy and Diffic ulty Concentrating Judgement:?Poor Diagnostics Vital Signs (24Hr): Vital Signs - 24 hr 01/24/21 08:13 Temperature 98.2 F Pulse Rate 53 Blood Pressure 145/90 H Pulse Oximetry 98 BMI result Body Mass Index 25.0 Labs Results: 01/01/21 22:07 01/01/21 22:07 Imaging Radiology Impressions: ITS Impressions Chest X-Ray 01/16/21 12:47 IMPRESSION: No acute pneumonic process. Likely mild reactive small airway disease. Medications Medications Current Medications Acetaminophen (Acetaminophen 325 Mg Tablet) 650 mg PO Q6H PRN PRN Reason: Headache/Pain Mild Scale (1-3) Al Hydroxide/Mg Hydroxide (Magnesium Hydrox/Alum Hydrox 30 Ml Oral.Susp) 30 ml PO Q6H PRN PRN Reason: Heartburn/Nausea Benztropine Mesylate (Benztropine Mesylate 0.5 Mg Tablet) 0.5 mg PO TID PRN PRN Reason: Extrapyramidal Effects Diphenhydramine HCl (Diphenhydramine Hcl 25 Mg Tablet) 50 mg PO Q6H PRN PRN Reason: EPS Ferrous Sulfate (Ferrous Sulfate 324 Mg Tablet.Dr) 324 mg PO DAILY [facility] Last Admin: 01/23/21 08:37 Dose: Not Given Documented by: Folic Acid (Folic Acid 1 Mg Tablet) 1 mg PO DAILY [facility] Last Admin: 01/23/21 08:38 Dose: Not Given Documented by: Haloperidol (Haloperidol 5 Mg Tablet) 5 mg PO QID PRN PRN Reason: agitation,violence Hydroxyzine HCl (Hydroxyzine Hcl 25 Mg Tablet) 25 mg PO Q6H PRN PRN Reason: Anxiety Ibuprofen (Ibuprofen 600 Mg Tablet) 600 mg PO Q6H PRN PRN Reason: moderate pain Lurasidone HCl (Lurasidone Hcl 40 Mg Tablet) 40 mg PO DAILY@1700 [facility] Last Admin: 01/23/21 15:54 Dose: 40 mg Documented by: Lurasidone HCl (Lurasidone Hcl 20 Mg Tablet) 20 mg PO DAILY [facility] Last Admin: 01/23/21 09:20 Dose: 20 mg Documented by: Magnesium Hydroxide (Milk Of Magnesia 30 Ml Oral.Susp) 30 ml PO DAILY PRN PRN Reason: Constipation Multivitamins/Vitamin C (Multivitamin Tablet) 1 tab PO DAILY [facility] Last Admin: 01/23/21 08:38 Dose: Not Given Documented by: Nicotine Polacrilex (Nicotine Polacrilex 2 Mg Gum) 2 mg BUCCAL Q2H PRN PRN Reason: Nicotine Cravings Oxcarbazepine (Oxcarbazepine 150 Mg Tablet) 150 mg PO DAILY@1200 [facility] Stop: 01/25/21 09:00 Pharmacy Consult (Consult Rx Perform Med Rec) 1 each MISCELLANE ONCE PRN PRN Reason: Consult order Trazodone HCl (Trazodone Hcl 50 Mg Tablet) 50 mg PO BEDTIME PRN PRN Reason: Insomnia Last Admin: 01/13/21 03:50 Dose: 50 mg Documented by: Allergies Allergies Allergy/AdvReac Type Severity Reaction Status Date / Time lamotrigine [From Lamictal] AdvReac Unknown Unknown Verified 01/01/21 20:31 Benzodiazepines AdvReac pt asks Verified 01/15/21 18:18 for no benzos due to her addiction history Assessment & Plan Assessment & Plan (1) Bipolar disorder current episode depressed: Qualifiers: Current episode severity: severe Psychotic features: with psychotic features Qualified Code(s): F31.5 - Bipolar disorder, current episode depressed, severe, with psychotic features Status: Acute Code(s): F31.30 - Bipolar disorder, current episode depressed, mild or moderate severity, unspecified (2) Seasonal affective disorder: Status: Acute Code(s): F33.8 - Other recurrent depressive disorders Assessment and Plan: ongoing Ambivalent about medications and effects angry and irritable re being kept here, re medications, but also depressed and hopeless hx failed lexapro trial now on latuda and ? trileptal if she will take 01/13/21: Civil commitment filing completed Discontinue Geodon Latuda 20 mg HS Discontinue Lexapro 01/15/21 Significant evening agitation with two elopement episodes, requiring IM medications. Pt is reluctant to titrate regime of Latuda. Currently it is not effective in symptom mgt at 20 mg. She refuses increase so we will need to change regime. Plan: Discontinue Latuda Haldol 10 mg bid Trileptal 300 mg bid 01/15/21: documentation per restraint protocol. patient seen and assessed for safety. 01/16/21 agreed to latuda , change haldol to prn, and got chest xr to r/o any rib fracture- s/p restraint- prn ibuprofen for musculoskeletal pain given information re trileptal continue trileptal with latuda 01/17/21 feels no matter what she says we will do what we want- sit at latuda 40mg and trial trileptal - then pending court- 01/18/21 Continue current regime 01/20/21 Continue current regime [facility] pending Addiction Medicine will send a recovery engineer to meet with pt. 01/21: continues to present guarded, thinks hospital and family agains her. despite admitting s/s of depression unable to work, worried about taking medications despite no evidence of side effect and potential benefit of reducing severe depression/suicidal thoughts which suspect are product of underlying delusional content. no changes to medications. 01/22/21: Decrease Trileptal to 150 mg daily for two days then discontinue Increase Latuda to 20 mg a.m. and continue 40 mg in the evening. (Pt requesting splitting of the dosage) Offer support for current housing issues Court 01/28/21. Weekend coverage: 01/23- pt appears fatigued, dysphoric, hopeless. Continues to be guarded, difficult to engage in meaningful conversation, insight and judgment remain poor and pt's sx appear exacerbated by recent housing issue, risk of homelessness. Latuda dose increased to 20 mg this morning. Plan to discontinue trileptal due to fatigue and to reduce polypharm, denies benefit. I spent minutes with the patient and/or on the patient floor today, greater than?50% of which was spent counseling/coordinating care. Reason for contiued inpatient stay Substantial Risk for: inability to function, rapid decompensation and med/psych decompensation
[2021-01-24] MEDS: Lurasidone HCl 20 MG TABLET PO (09:45)
[2021-01-24] MEDS: OXcarbazepine 150 MG TABLET PO (12:53)
--- NOTE | 2021-01-24 14:34 | HO.PSYCHPN ---
Subjective Subjective Date of Service: 01/24/21 Reason For Visit: Crisis Interim History: Patient seen and discussed with team. Patient evaluated this morning and upon interview she reports she has a headache, feels she needs to drink more water. Energy is low, tired, attributes this to trileptal. Says she is worried about pending court for section 7&8 and worried about not having an apartment. No questions or concerns. Feels safe.?She is minimally engaged, poor eye contact, appears dysphoric. Medication Compliance: Yes Side effects from medications: No Attending Groups: Intermittent Review of Systems Acute medical concerns: No Medical Review of Systems: unchanged Mental Status Exam Mental Status Exam Narrative: Appearance:?Fatigued and Disheveled Patient Orientation:?Person, Place, Time and Situation Level of Consciousness:?Alert Patient Behavior:?Appropriate, Guarded, Talkative, Cooperative, Suspicious, Wandering, Anxious, Resistive to Care, Fatigued, Distractible and Impulsive Mood Description:?Depressed and Angry Affect Description:?Labile Patient Cognition Impaired:?No Ability to Follow Directions:?Good Speech Pattern:?Perseverating, Spontaneous Speech and Soft-Spoken Memory Description:?Episodic Impaired Hallucinations:?None (denies) Delusions:?Paranoid Ideation Perceptual Disturbances:?Depersonalization and Derealization Thought Process:?Distracted and Rumination Thought Content:?positive for [place], positive for [place], positive for Persever[place] and positive for Suicidal Ideation Depressive Symptoms:?Increased Anxiety, Diff. Making Decisions, Increased Irritability, Loss of Int. in Activity, Hopelessness, Unhappiness, Increased Fatigue, Thoughts of /Suicide, Low Self Esteem, Loss of Energy and Difficulty Concentrating Judgement:?Poor Diagnostics Vital Signs (24Hr): Vital Signs - 24 hr 01/24/21 08:13 Temperature 98.2 F Pulse Rate 53 Blood Pressure 145/90 H Pulse Oximetry 98 BMI result Body Mass Index 25.0 Labs Results: 01/01/21 22:07 01/01/21 22:07 Imaging Radiology Impressions: ITS Impressions Chest X-Ray 01/16/21 12:47 IMPRESSION: No acute pneumonic process. Likely mild reactive small airway disease. Medications Medications Current Medications Acetaminophen (Acetaminophen 325 Mg Tablet) 650 mg PO Q6H PRN PRN Reason: Headache/Pain Mild Scale (1-3) Al Hydroxide/Mg Hydroxide (Magnesium Hydrox/Alum Hydrox 30 Ml Oral.Susp) 30 ml PO Q6H PRN PRN Reason: Heartburn/Nausea Benztropine Mesylate (Benztropine Mesylate 0.5 Mg Tablet) 0.5 mg PO TID PRN PRN Reason: Extrapyramidal Effects Diphenhydramine HCl (Diphenhydramine Hcl 25 Mg Tablet) 50 mg PO Q6H PRN PRN Reason: EPS Ferrous Sulfate (Ferrous Sulfate 324 Mg Tablet.Dr) 324 mg PO DAILY [facility] Last Admin: 01/24/21 08:34 Dose: Not Given Documented by: Folic Acid (Folic Acid 1 Mg Tablet) 1 mg PO DAILY [facility] Last Admin: 01/24/21 08:34 Dose: Not Given Documented by: Haloperidol (Haloperidol 5 Mg Tablet) 5 mg PO QID PRN PRN Reason: agitation,violence Hydroxyzine HCl (Hydroxyzine Hcl 25 Mg Tablet) 25 mg PO Q6H PRN PRN Reason: Anxiety Ibuprofen (Ibuprofen 600 Mg Tablet) 600 mg PO Q6H PRN PRN Reason: moderate pain Lurasidone HCl (Lurasidone Hcl 40 Mg Tablet) 40 mg PO DAILY@1700 [facility] Last Admin: 01/23/21 15:54 Dose: 40 mg Documented by: Lurasidone HCl (Lurasidone Hcl 20 Mg Tablet) 20 mg PO DAILY [facility] Last Admin: 01/24/21 09:45 Dose: 20 mg Documented by: Magnesium Hydroxide (Milk Of Magnesia 30 Ml Oral.Susp) 30 ml PO DAILY PRN PRN Reason: Constipation Multivitamins/Vitamin C (Multivitamin Tablet) 1 tab PO DAILY [facility] Last Admin: 01/24/21 08:34 Dose: Not Given Documented by: Nicotine Polacrilex (Nicotine Polacrilex 2 Mg Gum) 2 mg BUCCAL Q2H PRN PRN Reason: Nicotine Cravings Pharmacy Consult (Consult Rx Perform Med Rec) 1 each MISCELLANE ONCE PRN PRN Reason: Consult order Trazodone HCl (Trazodone Hcl 50 Mg Tablet) 50 mg PO BEDTIME PRN PRN Reason: Insomnia Last Admin: 01/13/21 03:50 Dose: 50 mg Documented by: Allergies Allergies Allergy/AdvReac Type Severity Reaction Status Date / Time lamotrigine [From Lamictal] AdvReac Unknown Unknown Verified 01/01/21 20:31 Benzodiazepines AdvReac pt asks Verified 01/15/21 18:18 for no benzos due to her addiction history Assessment & Plan Assessment & Plan (1) Bipolar disorder current episode depressed: Qualifiers: Current episode severity: severe Psychotic features: with psychotic features Qualified Code(s): F31.5 - Bipolar disorder, current episode depressed, severe, with psychotic features Status: Acute Code(s): F31.30 - Bipolar disorder, current episode depressed, mild or moderate severity, unspecified (2) Seasonal affective disorder: Status: Acute Code(s): F33.8 - Other recurrent depressive disorders Assessment and Plan: ongoing Ambivalent about medications and effects angry and irritable re being kept here, re medications, but also depressed and hopeless hx failed lexapro trial now on latuda and ? trileptal if she will take 01/13/21: Civil commitment filing completed Discontinue Geodon Latuda 20 mg HS Discontinue Lexapro 01/15/21 Significant evening agitation with two elopement episodes, requiring IM medications. Pt is reluctant to titrate regime of Latuda. Currently it is not effective in symptom mgt at 20 mg. She refuses increase so we will need to change regime. Plan: Discontinue Latuda Haldol 10 mg bid Trileptal 300 mg bid 01/15/21: documentation per restraint protocol. patient seen and assessed for safety. 01/16/21 agreed to latuda , change haldol to prn, and got chest xr to r/o any rib fracture- s/p restraint- prn ibuprofen for musculoskeletal pain given information re trileptal continue trileptal with latuda 01/17/21 feels no matter what she says we will do what we want- sit at latuda 40mg and trial trileptal - then pending court- 01/18/21 Continue current regime 01/20/21 Continue current regime HIREN pending Addiction Medicine will send a addictions recovery specialist to meet with pt. 01/21: continues to present guarded, thinks hospital and family agains her. despite admitting s/s of depression unable to work, worried about taking medications despite no evidence of side effect and potential benefit of reducing severe depression/suicidal thoughts which suspect are product of underlying delusional content. no changes to medications. 01/22/21: Decrease Trileptal to 150 mg daily for two days then discontinue Increase Latuda to 20 mg a.m. and continue 40 mg in the evening. (Pt requesting splitting of the dosage) Offer support for current housing issues Court 01/28/21. Weekend coverage: 01/23- pt appears fatigued, dysphoric, hopeless. Continues to be guarded, difficult to engage in meaningful conversation, insight and judgment remain poor and pt's sx appear exacerbated by recent housing issue, risk of homelessness. Latuda dose increased to 20 mg this morning. Plan to discontinue trileptal due to fatigue and to reduce polypharm, denies benefit. 01/24- Pt continues to perseverate on upcoming court and housing situation. Continues to present with sx of depression. Will discontinue trileptal due to reported lack of benefit and possible sedating SE. Pt denies safety concerns but historically is not reliable historian, guarded and presents with poor insight/ judgment. I spent minutes with the patient and/or on the patient floor today, greater than?50% of which was spent counseling/coordinating care. Reason for contiued inpatient stay Substantial Risk for: harm to self, inability to function, rapid decompensation and med/psych decompensation
[2021-01-24] MEDS: Lurasidone HCl 40 MG TABLET PO (17:12)
[2021-01-24 18:00] VITALS: BP 135/82; PULSE 78; RESP 16; TEMP 36.6; O2SAT 99
[2021-01-25 06:00] VITALS: BP 148/72; PULSE 50; RESP 18; TEMP 36.1; O2SAT 99
[2021-01-25] MEDS: Lurasidone HCl 20 MG TABLET PO (09:07)
[2021-01-25] MEDS: Lurasidone HCl 40 MG TABLET PO (16:53)
[2021-01-25 18:00] VITALS: BP 149/65; PULSE 69; TEMP 36.8; O2SAT 99
--- NOTE | 2021-01-25 18:36 | P.PNPSI_ITS ---
Subjective Subjective Date of Service: 01/25/21 Reason For Visit: Crisis Subjective Notes: Section 7 Healthcare Proxy: No Guardianship: No Medical Problems Affecting Mental Status: No Interim History: Section VII, court date 01/28/21. Pt reports less SE since Trileptal tapered and discontinued. Reports depressive sx. Discussed previous trials-Paxil, Prozac, Celexa, Lexapro. Discussed low dose Sertraline. Discussed Topiramate. Pt would like a trial of Sertraline. Pt to have HIREN 01/26/21. Discussed continuing her case for a few weeks. Accepting of treatment. Feeling some relief she reports. 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 Medication Compliance: Yes Side effects from medications: No (Sedation decreased since Trileptal tapered and discontinued) Attending Groups: Yes Review of Systems Acute medical concerns: No Medical Review of Systems: unchanged Review of Systems Reports behavioral changes Psychiatric: Reports anxiety, Reports behavioral changes, Reports change in appetite, Reports depression, Reports difficulty concentrating, Reports anhedonia and Reports suicidal ideation (denies) Mental Status Exam Mental Status Exam Patient Appearance: Fatigued and Appropriate Patient Orientation: Person, Place, Time and Situation Level of Consciousness: Alert Patient Behavior: Appropriate, Talkative, Cooperative and Good Eye Contact Mood Description: Depressed Affect Description: Flat Patient Cognition Impaired: No Ability to Follow Directions: Good Speech Pattern: Clear and Spontaneous Speech Memory Description: Episodic Impaired Hallucinations: None Delusions: Not Present Thought Process: Rumination Thought Content: positive for [place], positive for Circumstantial, positive for Perseveration and positive for Suicidal Ideation (denies) Depressive Symptoms: Increased Anxiety, Diff. Making Decisions, Changes in Appetite, Hopelessness and Thoughts of /Suicide (denies) Judgement: Fair Diagnostics Vital Signs (24Hr): Vital Signs - 24 hr 01/25/21 06:00 01/25/21 18:00 Temperature 97.0 F 98.3 F Pulse Rate 50 69 Respiratory Rate 18 Blood Pressure 148/72 H 149/65 H Pulse Oximetry 99 99 BMI result Body Mass Index 25.0 Labs Results: 01/01/21 22:07 01/01/21 22:07 Imaging Radiology Impressions: ITS Impressions Chest X-Ray 01/16/21 12:47 IMPRESSION: No acute pneumonic process. Likely mild reactive small airway disease. Medications Medications Current Medications Acetaminophen (Acetaminophen 325 Mg Tablet) 650 mg PO Q6H PRN PRN Reason: Headache/Pain Mild Scale (1-3) Al Hydroxide/Mg Hydroxide (Magnesium Hydrox/Alum Hydrox 30 Ml Oral.Susp) 30 ml PO Q6H PRN PRN Reason: Heartburn/Nausea Benztropine Mesylate (Benztropine Mesylate 0.5 Mg Tablet) 0.5 mg PO TID PRN PRN Reason: Extrapyramidal Effects Diphenhydramine HCl (Diphenhydramine Hcl 25 Mg Tablet) 50 mg PO Q6H PRN PRN Reason: EPS Ferrous Sulfate (Ferrous Sulfate 324 Mg Tablet.Dr) 324 mg PO DAILY [facility] Last Admin: 01/25/21 08:34 Dose: Not Given Documented by: Folic Acid (Folic Acid 1 Mg Tablet) 1 mg PO DAILY [facility] Last Admin: 01/25/21 08:34 Dose: Not Given Documented by: Haloperidol (Haloperidol 5 Mg Tablet) 5 mg PO QID PRN PRN Reason: agitation,violence Hydroxyzine HCl (Hydroxyzine Hcl 25 Mg Tablet) 25 mg PO Q6H PRN PRN Reason: Anxiety Ibuprofen (Ibuprofen 600 Mg Tablet) 600 mg PO Q6H PRN PRN Reason: moderate pain Lurasidone HCl (Lurasidone Hcl 40 Mg Tablet) 40 mg PO DAILY@1700 [facility] Last Admin: 01/25/21 16:53 Dose: 40 mg Documented by: Lurasidone HCl (Lurasidone Hcl 20 Mg Tablet) 20 mg PO DAILY [facility] Last Admin: 01/25/21 09:07 Dose: 20 mg Documented by: Magnesium Hydroxide (Milk Of Magnesia 30 Ml Oral.Susp) 30 ml PO DAILY PRN PRN Reason: Constipation Multivitamins/Vitamin C (Multivitamin Tablet) 1 tab PO DAILY [facility] Last Admin: 01/25/21 08:35 Dose: Not Given Documented by: Nicotine Polacrilex (Nicotine Polacrilex 2 Mg Gum) 2 mg BUCCAL Q2H PRN PRN Reason: Nicotine Cravings Pharmacy Consult (Consult Rx Perform Med Rec) 1 each MISCELLANE ONCE PRN PRN Reason: Consult order Trazodone HCl (Trazodone Hcl 50 Mg Tablet) 50 mg PO BEDTIME PRN PRN Reason: Insomnia Last Admin: 01/13/21 03:50 Dose: 50 mg Documented by: Allergies Allergies Allergy/AdvReac Type Severity Reaction Status Date / Time lamotrigine [From Lamictal] AdvReac Unknown Unknown Verified 01/01/21 20:31 Benzodiazepines AdvReac pt asks Verified 01/15/21 18:18 for no benzos due to her addiction history Assessment & Plan Assessment & Plan (1) Bipolar disorder current episode depressed: Qualifiers: Current episode severity: severe Psychotic features: with psychotic features Qualified Code(s): F31.5 - Bipolar disorder, current episode depressed, severe, with psychotic features Status: Acute Code(s): F31.30 - Bipolar disorder, current episode depressed, mild or moderate severity, unspecified (2) Seasonal affective disorder: Status: Acute Code(s): F33.8 - Other recurrent depressive disorders Assessment and Plan: ongoing Ambivalent about medications and effects angry and irritable re being kept here, re medications, but also depressed and hopeless hx failed lexapro trial now on latuda and ? trileptal if she will take 01/13/21: Civil commitment filing completed Discontinue Geodon Latuda 20 mg HS Discontinue Lexapro 01/15/21 Significant evening agitation with two elopement episodes, requiring IM medications. Pt is reluctant to titrate regime of Latuda. Currently it is not effective in symptom mgt at 20 mg. She refuses increase so we will need to change regime. Plan: Discontinue Latuda Haldol 10 mg bid Trileptal 300 mg bid 01/15/21: documentation per restraint protocol. patient seen and assessed for safety. 01/16/21 agreed to latuda , change haldol to prn, and got chest xr to r/o any rib fracture- s/p restraint- prn ibuprofen for musculoskeletal pain given information re trileptal continue trileptal with latuda 01/17/21 feels no matter what she says we will do what we want- sit at latuda 40mg and trial trileptal - then pending court- 01/18/21 Continue current regime 01/20/21 Continue current regime HIREN pending Addiction Medicine will send a football coach to meet with pt. 01/21: continues to present guarded, thinks hospital and family agains her. despite admitting s/s of depression unable to work, worried about taking medications despite no evidence of side effect and potential benefit of reducing severe depression/suicidal thoughts which suspect are product of underlying delusional content. no changes to medications. 01/22/21: Decrease Trileptal to 150 mg daily for two days then discontinue Increase Latuda to 20 mg a.m. and continue 40 mg in the evening. (Pt requesting splitting of the dosage) Offer support for current housing issues Court 01/28/21. Weekend coverage: 01/23- pt appears fatigued, dysphoric, hopeless. Continues to be guarded, difficult to engage in meaningful conversation, insight and judgment remain poor and pt's sx appear exacerbated by recent housing issue, risk of homelessness. Latuda dose increased to 20 mg this morning. Plan to discontinue trileptal due to fatigue and to reduce polypharm, denies benefit. 01/24- Pt continues to perseverate on upcoming court and housing situation. Continues to present with sx of depression. Will discontinue trileptal due to reported lack of benefit and possible sedating SE. Pt denies safety concerns but historically is not reliable historian, guarded and presents with poor insight/ judgment. 01/25/21 Some improvement reported. HIREN 01/26/21. Pt states that she is feeling some relief today. She is now needing to manage not having a place to live and is beginning to problem solve. Discussion of antidressant trial/another mood stabilizer Will trial Sertraline 25 mg daily. Letter drafted to Professor Jessica Palomares, [facility] to validate pts admission dates at pt request. I spent 35 minutes with the patient and/or on the patient floor today, greater than?50% of which was spent counseling/coordinating care. Patient educated on: medication risk/benefits Informed Consent: further education needed Reason for contiued inpatient stay Substantial Risk for: harm to self and rapid decompensation
[2021-01-26 06:00] VITALS: BP 150/56; PULSE 62; RESP 16; TEMP 36.6; O2SAT 98
[2021-01-26] MEDS: Sertraline HCL 25 MG TABLET PO (08:18)
[2021-01-26] MEDS: Lurasidone HCl 20 MG TABLET PO (08:18)
[2021-01-26] MEDS: Lurasidone HCl 40 MG TABLET PO (16:44)
--- NOTE | 2021-01-26 17:32 | P.PNPSI_ITS ---
Subjective Subjective Date of Service: 01/26/21 Reason For Visit: Crisis Subjective Notes: Conditional Voluntary Healthcare Proxy: No Guardianship: No Medical Problems Affecting Mental Status: No Interim History: Reports sleep is intact, denies SE, denies SI. Reports no excess sedation with regime and some relief of symptoms. Has received an order to attend Jury Duty-discussed writing a letter for her. She will obtain her Juror ID # for reference letter. Discussed court on 01/28. HIREN scheduled for this afternoon. Medication Compliance: Yes Side effects from medications: No (denies) Attending Groups: Yes Review of Systems Acute medical concerns: No Medical Review of Systems: unchanged Review of Systems Reports behavioral changes Psychiatric: Reports anxiety, Reports behavioral changes, Reports change in appetite, Reports depression, Reports difficulty concentrating, Reports an hedonia and Reports suicidal ideation (denies) Mental Status Exam Mental Status Exam Patient Appearance: Fatigued and Appropriate Patient Orientation: Person, Place, Time and Situation Level of Consciousness: Alert Patient Behavior: Appropriate, Talkative, Cooperative and Good Eye Contact Mood Description: Depressed Affect Description: Flat Patient Cognition Impaired: No Ability to Follow Directions: Good Speech Pattern: Clear and Spontaneous Speech Memory Description: Episodic Impaired Hallucinations: None Delusions: Not Present Thought Process: Rumination Thought Content: positive for [place], positive for Circumstantial, positive for Perseveration and positive for Suicidal Ideation (denies) Depressive Symptoms: Increased Anxiety, Diff. Making Decisions, Changes in Appetite, Hopelessness and Thoughts of /Suicide (denies) Judgement: Fair Diagnostics Vital Signs (24Hr): Vital Signs - 24 hr 01/25/21 18:00 01/26/21 06:00 Temperature 98.3 F 97.8 F Pulse Rate 69 62 Respiratory Rate 16 Blood Pressure 149/65 H 150/56 H Pulse Oximetry 99 98 BMI result Body Mass Index 25.0 Labs Results: 01/01/21 22:07 01/01/21 22:07 Imaging Radiology Impressions: ITS Impressions Chest X-Ray 01/16/21 12:47 IMPRESSION: No acute pneumonic process. Likely mild reactive small airway disease. Medications Medications Current Medications Acetaminophen (Acetaminophen 325 Mg Tablet) 650 mg PO Q6H PRN PRN Reason: Headache/Pain Mild Scale (1-3) Al Hydroxide/Mg Hydroxide (Magnesium Hydrox/Alum Hydrox 30 Ml Oral.Susp) 30 ml PO Q6H PRN PRN Reason: Heartburn/Nausea Benztropine Mesylate (Benztropine Mesylate 0.5 Mg Tablet) 0.5 mg PO TID PRN PRN Reason: Extrapyramidal Effects Diphenhydramine HCl (Diphenhydramine Hcl 25 Mg Tablet) 50 mg PO Q6H PRN PRN Reason: EPS Ferrous Sulfate (Ferrous Sulfate 324 Mg Tablet.) 324 mg PO DAILY [facility] Last Admin: 01/26/21 08:22 Dose: Not Given Documented by: Folic Acid (Folic Acid 1 Mg Tablet) 1 mg PO DAILY [facility] Last Admin: 01/26/21 08:22 Dose: Not Given Documented by: Haloperidol (Haloperidol 5 Mg Tablet) 5 mg PO QID PRN PRN Reason: agitation,violence Hydroxyzine HCl (Hydroxyzine Hcl 25 Mg Tablet) 25 mg PO Q6H PRN PRN Reason: Anxiety Ibuprofen (Ibuprofen 600 Mg Tablet) 600 mg PO Q6H PRN PRN Reason: moderate pain Lurasidone HCl (Lurasidone Hcl 40 Mg Tablet) 40 mg PO DAILY@1700 [facility] Last Admin: 01/26/21 16:44 Dose: 40 mg Documented by: Lurasidone HCl (Lurasidone Hcl 20 Mg Tablet) 20 mg PO DAILY [facility] Last Admin: 01/26/21 08:18 Dose: 20 mg Documented by: Magnesium Hydroxide (Milk Of Magnesia 30 Ml Oral.Susp) 30 ml PO DAILY PRN PRN Reason: Constipation Multivitamins/Vitamin C (Multivitamin Tablet) 1 tab PO DAILY [facility] Last Admin: 01/26/21 08:22 Dose: Not Given Documented by: Nicotine Polacrilex (Nicotine Polacrilex 2 Mg Gum) 2 mg BUCCAL Q2H PRN PRN Reason: Nicotine Cravings Pharmacy Consult (Consult Rx Perform Med Rec) 1 each MISCELLANE ONCE PRN PRN Reason: Consult order Sertraline HCl (Sertraline Hcl 25 Mg Tablet) 25 mg PO DAILY [facility] Last Admin: 01/26/21 08:18 Dose: 25 mg Documented by: Trazodone HCl (Trazodone Hcl 50 Mg Tablet) 50 mg PO BEDTIME PRN PRN Reason: Insomnia Last Admin: 01/13/21 03:50 Dose: 50 mg Documented by: Allergies Allergies Allergy/AdvReac Type Severity Reaction Status Date / Time lamotrigine [From Lamictal] AdvReac Unknown Unknown Verified 01/01/21 20:31 Benzodiazepines AdvReac pt asks Verified 01/15/21 18:18 for no benzos due to her addiction history Assessment & Plan Assessment & Plan (1) Bipolar disorder current episode depressed: Qualifiers: Current episode severity: severe Psychotic features: with psychotic features Qualified Code(s): F31.5 - Bipolar disorder, current episode depressed, severe, with psychotic features Status: Acute Code(s): F31.30 - Bipolar disorder, current episode depressed, mild or moderate severity, unspecified (2) Seasonal affective disorder: Status: Acute Code(s): F33.8 - Other recurrent depressive disorders Assessment and Plan: ongoing Ambivalent about medications and effects angry and irritable re being kept here, re medications, but also depressed and hopeless hx failed lexapro trial now on latuda and ? trileptal if she will take 01/13/21: Civil commitment filing completed Discontinue Geodon Latuda 20 mg HS Discontinue Lexapro 01/15/21 Significant evening agitation with two elopement episodes, requiring IM medications. Pt is reluctant to titrate regime of Latuda. Currently it is not effective in symptom mgt at 20 mg. She refuses increase so we will need to change regime. Plan: Discontinue Latuda Haldol 10 mg bid Trileptal 300 mg bid 01/15/21: documentation per restraint protocol. patient seen and assessed for safety. 01/16/21 agreed to latuda , change haldol to prn, and got chest xr to r/o any rib fracture- s/p restraint- prn ibuprofen for musculoskeletal pain given information re trileptal continue trileptal with latuda 01/17/21 feels no matter what she says we will do what we want- sit at latuda 40mg and trial trileptal - then pending court- 01/18/21 Continue current regime 01/20/21 Continue current regime HIREN pending Addiction Medicine will send a assistant golf coach to meet with pt. 01/21: continues to present guarded, thinks hospital and family agains her. despite admitting s/s of depression unable to work, worried about taking medi cations despite no evidence of side effect and potential benefit of reducing severe depression/suicidal thoughts which suspect are product of underlying delusional content. no changes to medications. 01/22/21: Decrease Trileptal to 150 mg daily for two days then discontinue Increase Latuda to 20 mg a.m. and continue 40 mg in the evening. (Pt requesting splitting of the dosage) Offer support for current housing issues Court 01/28/21. Weekend coverage: 01/23- pt appears fatigued, dysphoric, hopeless. Continues to be guarded, difficult to engage in meaningful conversation, insight and judgment remain poor and pt's sx appear exacerbated by recent housing issue, risk of homelessness. Latuda dose increased to 20 mg this morning. Plan to discontinue trileptal due to fatigue and to reduce polypharm, denies benefit. 01/24- Pt continues to perseverate on upcoming court and housing situation. Continues to present with sx of depression. Will discontinue trileptal due to reported lack of benefit and possible sedating SE. Pt denies safety concerns but historically is not reliable historian, guarded and presents with poor insight/ judgment. 01/25/21 Some improvement reported. HIREN 01/26/21. Pt states that she is feeling some relief today. She is now needing to manage not having a place to live and is beginning to problem solve. Discussion of antidressant trial/another mood stabilizer Will trial Sertraline 25 mg daily. Letter drafted to Professor Jessica Palomares, [facility] to validate pts admission dates at pt request. 01/26/21 HIREN scheduled for today Tolerating regime, sedation is managed she reports today. Continue regime Will draft a letter to excuse pt from Jury Duty responsibility. I spent 25 minutes with the patient and/or on the patient floor today, greater than?50% of which was spent counseling/coordinating care. Patient educated on: medication risk/benefits and therapeutic strategies Informed Consent: understands and further education needed Reason for contiued inpatient stay Substantial Risk for: harm to self, inability to function and rapid decompensation
[2021-01-26 18:00] VITALS: BP 167/72; PULSE 64; RESP 16; TEMP 36.8; O2SAT 97
[2021-01-27 06:00] VITALS: BP 136/73; PULSE 50; RESP 16; TEMP 36.3; O2SAT 98
[2021-01-27] MEDS: Lurasidone HCl 20 MG TABLET PO (09:27)
[2021-01-27] MEDS: Sertraline HCL 25 MG TABLET PO (09:27)
--- NOTE | 2021-01-27 16:16 | HO.PSYCHPN ---
Subjective Subjective Date of Service: 01/27/21 Reason For Visit: Crisis Subjective Notes: Section 7 Healthcare Proxy: No Guardianship: No Medical Problems Affecting Mental Status: No Interim History: Pt reports feeling sad . Pleased that court is postponed and that she has a chance to accept treatment on her own. Discussed hx of symptoms-reports seizure hx in childhood-took Phenobarbital for 7-8 years but grew out of symptoms and has not had a seizure since childhood-no dx epilepsy. Making contact with her [employer]. to gather extensions for course work. Also asks for a letter for jury duty. Overall reports feeling improved. Medication Compliance: Yes Side effects from medications: No Attending Groups: Yes Review of Systems Acute medical concerns: No Medical Review of Systems: unchanged Review of Systems Reports behavioral changes Psychiatric: Reports anxiety, Reports behavioral changes, Reports change in appetite, Reports depression, Reports difficulty concentrating, Reports anhedonia and Reports suicidal ideation (denies) Mental Status Exam Mental Status Exam Patient Appearance: Fatigued and Appropriate Patient Orientation: Person, Place, Time and Situation Level of Consciousness: Alert Patient Behavior: Appropriate, Talkative, Cooperative and Good Eye Contact Mood Description: Depressed Affect Description: Flat Patient Cognition Impaired: No Ability to Follow Directions: Good Speech Pattern: Clear and Spontaneous Speech Memory Description: Episodic Impaired Hallucinations: None Delusions: Not Present Thought Process: Rumination Thought Content: positive for [place], positive for Circumstantial, positive for Perseveration and positive for Suicidal Ideation (denies) Depressive Symptoms: Increased Anxiety, Diff. Making Decisions, Changes in Appetite, Hopelessness and Thoughts of /Suicide (denies) Judgement: Fair Diagnostics Vital Signs (24Hr): Vital Signs - 24 hr 01/26/21 18:00 01/27/21 06:00 Temperature 98.3 F 97.3 F Pulse Rate 64 50 Respiratory Rate 16 16 Blood Pressure 167/72 H 136/73 Pulse Oximetry 97 98 BMI result Body Mass Index 25.0 Labs Results: 01/01/21 22:07 01/01/21 22:07 Imaging Radiology Impressions: ITS Impressions Chest X-Ray 01/16/21 12:47 IMPRESSION: No acute pneumonic process. Likely mild reactive small airway disease. Medications Medications Current Medications Acetaminophen (Acetaminophen 325 Mg Tablet) 650 mg PO Q6H PRN PRN Reason: Headache/Pain Mild Scale (1-3) Al Hydroxide/Mg Hydroxide (Magnesium Hydrox/Alum Hydrox 30 Ml Oral.Susp) 30 ml PO Q6H PRN PRN Reason: Heartburn/Nausea Benztropine Mesylate (Benztropine Mesylate 0.5 Mg Tablet) 0.5 mg PO TID PRN PRN Reason: Extrapyramidal Effects Diphenhydramine HCl (Diphenhydramine Hcl 25 Mg Tablet) 50 mg PO Q6H PRN PRN Reason: EPS Ferrous Sulfate (Ferrous Sulfate 324 Mg Tablet.Dr) 324 mg PO DAILY [facility] Last Admin: 01/27/21 10:03 Dose: Not Given Documented by: Folic Acid (Folic Acid 1 Mg Tablet) 1 mg PO DAILY [facility] Last Admin: 01/27/21 10:03 Dose: Not Given Documented by: Haloperidol (Haloperidol 5 Mg Tablet) 5 mg PO QID PRN PRN Reason: agitation,violence Hydroxyzine HCl (Hydroxyzine Hcl 25 Mg Tablet) 25 mg PO Q6H PRN PRN Reason: Anxiety Ibuprofen (Ibuprofen 600 Mg Tablet) 600 mg PO Q6H PRN PRN Reason: moderate pain Lurasidone HCl (Lurasidone Hcl 40 Mg Tablet) 40 mg PO DAILY@1700 [facility] Last Admin: 01/26/21 16:44 Dose: 40 mg Documented by: Lurasidone HCl (Lurasidone Hcl 20 Mg Tablet) 20 mg PO DAILY [facility] Last Admin: 01/27/21 09:27 Dose: 20 mg Documented by: Magnesium Hydroxide (Milk Of Magnesia 30 Ml Oral.Susp) 30 ml PO DAILY PRN PRN Reason: Constipation Multivitamins/Vitamin C (Multivitamin Tablet) 1 tab PO DAILY [facility] Last Admin: 01/27/21 10:03 Dose: Not Given Documented by: Nicotine Polacrilex (Nicotine Polacrilex 2 Mg Gum) 2 mg BUCCAL Q2H PRN PRN Reason: Nicotine Cravings Pharmacy Consult (Consult Rx Perform Med Rec) 1 each MISCELLANE ONCE PRN PRN Reason: Consult order Sertraline HCl (Sertraline Hcl 25 Mg Tablet) 25 mg PO DAILY [facility] Last Admin: 01/27/21 09:27 Dose: 25 mg Documented by: Trazodone HCl (Trazodone Hcl 50 Mg Tablet) 50 mg PO BEDTIME PRN PRN Reason: Insomnia Last Admin: 01/13/21 03:50 Dose: 50 mg Documented by: Allergies Allergies Allergy/AdvReac Type Severity Reaction Status Date / Time lamotrigine [From Lamictal] AdvReac Unknown Unknown Verified 01/01/21 20:31 Benzodiazepines AdvReac pt asks Verified 01/15/21 18:18 for no benzos due to her addiction history Assessment & Plan Assessment & Plan (1) Bipolar disorder current episode depressed: Qualifiers: Current episode severity: severe Psychotic features: with psychotic features Qualified Code(s): F31.5 - Bipolar disorder, current episode depressed, severe, with psychotic features Status: Acute Code(s): F31.30 - Bipolar disorder, current episode depressed, mild or moderate severity, unspecified (2) Seasonal affective disorder: Status: Acute Code(s): F33.8 - Other recurrent depressive disorders Assessment and Plan: ongoing Ambivalent about medications and effects angry and irritable re being kept here, re medications, but also depressed and hopeless hx failed lexapro trial now on latuda and ? trileptal if she will take 01/13/21: Civil commitment filing completed Discontinue Geodon Latuda 20 mg HS Discontinue Lexapro 01/15/21 Significant evening agitation with two elopement episodes, requiring IM medications. Pt is reluctant to titrate regime of Latuda. Currently it is not effective in symptom mgt at 20 mg. She refuses increase so we will need to change regime. Plan: Discontinue Latuda Haldol 10 mg bid Trileptal 300 mg bid 01/15/21: documentation per restraint protocol. patient seen and assessed for safety. 01/16/21 agreed to latuda , change haldol to prn, and got chest xr to r/o any rib fracture- s/p restraint- prn ibuprofen for musculoskeletal pain given information re trileptal continue trileptal with latuda 01/17/21 feels no matter what she says we will do what we want- sit at latuda 40mg and trial trileptal - then pending court- 01/18/21 Continue current regime 01/20/21 Continue current regime HIREN pending Addiction Medicine will send a elementary instructional coach to meet with pt. 01/21: continues to present guarded, thinks hospital and family agains her. despite admitting s/s of depression unable to work, worried about taking medications despite no evidence of side effect and potential benefit of reducing severe depression/suicidal thoughts which suspect are product of underlying delusional content. no changes to medications. 01/22/21: Decrease Trileptal to 150 mg daily for two days then discontinue Increase Latuda to 20 mg a.m. and continue 40 mg in the evening. (Pt requesting splitting of the dosage) Offer support for current housing issues Court 01/28/21. Weekend coverage: 01/23- pt appears fatigued, dysphoric, hopeless. Continues to be guarded, difficult to engage in meaningful conversation, insight and judgment remain poor and pt's sx appear exacerbated by recent housing issue, risk of homelessness. Latuda dose increased to 20 mg this morning. Plan to discontinue trileptal due to fatigue and to reduce polypharm, denies benefit. 01/24- Pt continues to perseverate on upcoming court and housing situation. Continues to present with sx of depression. Will discontinue trileptal due to reported lack of benefit and possible sedating SE. Pt denies safety concerns but historically is not reliable historian, guarded and presents with poor insight/ judgment. 01/25/21 Some improvement reported. HIREN 01/26/21. Pt states that she is feeling some relief today. She is now needing to manage not having a place to live and is beginning to problem solve. Discussion of antidressant trial/another mood stabilizer Will trial Sertraline 25 mg daily. Letter drafted to Professor Jessica Palomares, [facility] to validate pts admission dates at pt request. 01/26/21 HIREN scheduled for today Tolerating regime, sedation is managed she reports today. Continue regime Will draft a letter to excuse pt from Jury Duty responsibility. 01/27/[address] date 02/04/21 Tolerating regime- will continue Expressing sadness today mostly due to stress on family relationships this episode of illness has had Pt has no information on Jury Duty responsiblity-will attempt to call as pt does not have her juror ID number. I spent 30 minutes with the patient and/or on the patient floor today, greater than?50% of which was spent counseling/coordinating care. Patient educated on: therapeutic strategies Informed Consent: understands Reason for contiued inpatient stay Substantial Risk for: harm to self, inability to function and rapid decompensation
[2021-01-27 17:19] VITALS: BP 148/76; PULSE 76; RESP 16; TEMP 36.2
[2021-01-27] MEDS: Lurasidone HCl 40 MG TABLET PO (17:56)
[2021-01-28 06:00] VITALS: BP 130/74; PULSE 54; RESP 16; TEMP 36.2; O2SAT 97
[2021-01-28 07:00] VITALS: BMI 25.2
[2021-01-28] MEDS: Sertraline HCL 25 MG TABLET PO (09:28)
[2021-01-28] MEDS: Lurasidone HCl 20 MG TABLET PO (09:28)
[2021-01-28] MEDS: Lurasidone HCl 40 MG TABLET PO (17:48)
--- NOTE | 2021-01-28 19:07 | MHC.RECOVSUP ---
? Reason for consult: Recovery Coaching o ? ? ?Current location: ?[phone] ? ? ?Identified substance use concern: ?Alcohol Support ? ?Intervention: o Community resources provided o Harm reduction discussion ? Plan: o Follow up tomorrow ? ? Additional information:?I was able to connect with patient and provide resources in the community for sober living. Client was receptive and also looking for supportive tools with the AA Big Book, meditation and prayer. I was also able to make suggestions for harm reduction strategies. I will follow tomorrow.
--- NOTE | 2021-01-28 22:40 | P.PNPSI_ITS ---
Subjective Subjective Date of Service: 01/28/21 Reason For Visit: Crisis Subjective Notes: Section 7 Healthcare Proxy: No Guardianship: No Medical Problems Affecting Mental Status: No Interim History: Tolerating regime. Feeling tired today. Continues to attempt to search for jury duty information. Denies specific issues of concern today There are so many people here with real serious issues-I feel so bad for them and guilty that I take up all of the time I do with you all . Reassurance of fered. Discussion. Medication Compliance: Yes Side effects from medications: No Attending Groups: Yes Review of Systems Acute medical concerns: No Medical Review of Systems: unchanged Review of Systems Reports behavioral changes Psychiatric: Reports anxiety, Reports behavioral changes, Reports change in appetite, Reports depression, Reports difficulty concentrating, Reports anhedonia and Reports suicidal ideation (denies) Mental Status Exam Mental Status Exam Patient Appearance: Fatigued and Appropriate Patient Orientation: Person, Place, Time and Situation Level of Consciousness: Alert Patient Behavior: Appropriate, Talkative, Cooperative and Good Eye Contact Mood Description: Depressed Affect Description: Flat Patient Cognition Impaired: No Ability to Follow Directions: Good Speech Pattern: Clear and Spontaneous Speech Memory Description: Episodic Impaired Hallucinations: None Delusions: Not Present Thought Process: Rumination Thought Content: positive for [place], positive for Circumstantial, positive for Perseveration and positive for Suicidal Ideation (denies) Depressive Symptoms: Increased Anxiety, Diff. Making Decisions, Changes in Appetite, Hopelessness and Thoughts of /Suicide (denies) Judgement: Fair Diagnostics Vital Signs (24Hr): Vital Signs - 24 hr 01/28/21 06:00 Temperature 97.2 F Pulse Rate 54 Respiratory Rate 16 Blood Pressure 130/74 Pulse Oximetry 97 BMI result Body Mass Index 25.2 Labs Results: 01/01/21 22:07 01/01/21 22:07 Imaging Radiology Impressions: ITS Impressions Chest X-Ray 01/16/21 12:47 IMPRESSION: No acute pneumonic process. Likely mild reactive small airway disease. Medications Medications Current Medications Acetaminophen (Acetaminophen 325 Mg Tablet) 650 mg PO Q6H PRN PRN Reason: Headache/Pain Mild Scale (1-3) Al Hydroxide/Mg Hydroxide (Magnesium Hydrox/Alum Hydrox 30 Ml Oral.Susp) 30 ml PO Q6H PRN PRN Reason: Heartburn/Nausea Benztropine Mesylate (Benztropine Mesylate 0.5 Mg Tablet) 0.5 mg PO TID PRN PRN Reason: Extrapyramidal Effects Diphenhydramine HCl (Diphenhydramine Hcl 25 Mg Tablet) 50 mg PO Q6H PRN PRN Reason: EPS Ferrous Sulfate (Ferrous Sulfate 324 Mg Tablet.Dr) 324 mg PO DAILY [facility] Last Admin: 01/28/21 09:38 Dose: Not Given Documented by: Folic Acid (Folic Acid 1 Mg Tablet) 1 mg PO DAILY [facility] Last Admin: 01/28/21 09:38 Dose: Not Given Documented by: Haloperidol (Haloperidol 5 Mg Tablet) 5 mg PO QID PRN PRN Reason: agitation,violence Hydroxyzine HCl (Hydroxyzine Hcl 25 Mg Tablet) 25 mg PO Q6H PRN PRN Reason: Anxiety Ibuprofen (Ibuprofen 600 Mg Tablet) 600 mg PO Q6H PRN PRN Reason: moderate pain Lurasidone HCl (Lurasidone Hcl 40 Mg Tablet) 40 mg PO DAILY@1700 [facility] Last Admin: 01/28/21 17:48 Dose: 40 mg Documented by: Lurasidone HCl (Lurasidone Hcl 20 Mg Tablet) 20 mg PO DAILY [facility] Last Admin: 01/28/21 09:28 Dose: 20 mg Documented by: Magnesium Hydroxide (Milk Of Magnesia 30 Ml Oral.Susp) 30 ml PO DAILY PRN PRN Reason: Constipation Multivitamins/Vitamin C (Multivitamin Tablet) 1 tab PO DAILY [facility] Last Admin: 01/28/21 09:38 Dose: Not Given Documented by: Nicotine Polacrilex (Nicotine Polacrilex 2 Mg Gum) 2 mg BUCCAL Q2H PRN PRN Reason: Nicotine Cravings Pharmacy Consult (Consult Rx Perform Med Rec) 1 each MISCELLANE ONCE PRN PRN Reason: Consult order Sertraline HCl (Sertraline Hcl 25 Mg Tablet) 25 mg PO BEDTIME [facility] Trazodone HCl (Trazodone Hcl 50 Mg Tablet) 50 mg PO BEDTIME PRN PRN Reason: Insomnia Last Admin: 01/13/21 03:50 Dose: 50 mg Documented by: Allergies Allergies Allergy/AdvReac Type Severity Reaction Status Date / Time lamotrigine [From Lamictal] AdvReac Unknown Unknown Verified 01/01/21 20:31 Benzodiazepines AdvReac pt asks Verified 01/15/21 18:18 for no benzos due to her addiction history Assessment & Plan Assessment & Plan (1) Bipolar disorder current episode depressed: Qualifiers: Current episode severity: severe Psychotic features: with psychotic features Qualified Code(s): F31.5 - Bipolar disorder, current episode depressed, severe, with psychotic features Status: Acute Code(s): F31.30 - Bipolar disorder, current episode depressed, mild or moderate severity, unspecified (2) Seasonal affective disorder: Status: Acute Code(s): F33.8 - Other recurrent depressive disorders Assessment and Plan: ongoing Ambivalent about medications and effects angry and irritable re being kept here, re medications, but also depressed and hopeless hx failed lexapro trial now on latuda and ? trileptal if she will take 01/13/21: Civil commitment filing completed Discontinue Geodon Latuda 20 mg HS Discontinue Lexapro 01/15/21 Significant evening agitation with two elopement episodes, requiring IM medications. Pt is reluctant to titrate regime of Latuda. Currently it is not effective in symptom mgt at 20 mg. She refuses increase so we will need to change regime. Plan: Discontinue Latuda Haldol 10 mg bid Trileptal 300 mg bid 01/15/21: documentation per restraint protocol. patient seen and assessed for safety. 01/16/21 agreed to latuda , change haldol to prn, and got chest xr to r/o any rib fracture- s/p restraint- prn ibuprofen for musculoskeletal pain given information re trileptal continue trileptal with latuda 01/17/21 feels no matter what she says we will do what we want- sit at latuda 40mg and trial trileptal - then pending court- 01/18/21 Continue current regime 01/20/21 Continue current regime HIREN pending Addiction Medicine will send a disaster recovery consultant to meet with pt. 01/21: continues to present guarded, thinks hospital and family agains her. despite admitting s/s of depression unable to work, worried about taking medications despite no evidence of side effect and potential benefit of reducing severe depression/suicidal thoughts which suspect are product of underlying delusional content. no changes to medications. 01/22/21: Decrease Trileptal to 150 mg daily for two days then discontinue Increase Latuda to 20 mg a.m. and continue 40 mg in the evening. (Pt requesting splitting of the dosage) Offer support for current housing issues Court 01/28/21. Weekend coverage: 01/23- pt appears fatigued, dysphoric, hopeless. Continues to be guarded, difficult to engage in meaningful conversation, insight and judgment remain poor and pt's sx appear exacerbated by recent housing issue, risk of homelessness. Latuda dose increased to 20 mg this morning. Plan to discontinue trileptal due to fatigue and to reduce polypharm, denies benefit. 01/24- Pt continues to perseverate on upcoming court and housing situation. Continues to present with sx of depression. Will discontinue trileptal due to reported lack of benefit and possible sedating SE. Pt denies safety concerns but historically is not reliable historian, guarded and presents with poor insight/ judgment. 01/25/21 Some improvement reported. HIREN 01/26/21. Pt states that she is feeling some relief today. She is now needing to manage not having a place to live and is beginning to problem solve. Discussion of antidressant trial/another mood stabilizer Will trial Sertraline 25 mg daily. Letter drafted to Professor Jessica Palomares, [facility] to validate pts admission dates at pt request. 01/26/21 HIREN scheduled for today Tolerating regime, sedation is managed she reports today. Continue regime Will draft a letter to excuse pt from Jury Duty responsibility. 01/27/[address] date 02/04/21 Tolerating regime- will continue Expressing sadness today mostly due to stress on family relationships this episode of illness has had Pt has no information on Jury Duty responsiblity-will attempt to call as pt does not have her juror ID number. 01/28/21 Continue current plan I spent 30 minutes with the patient and/or on the patient floor today, greater than?50% of which was spent counseling/coordinating care. Patient educated on: medication risk/benefits and therapeutic strategies Informed Consent: understands and further education needed Reason for contiued inpatient stay Substantial Risk for: harm to self, inability to function and rapid decompensation
[2021-01-29 08:07] LABS: MANUAL DIFF FLAG NO
[2021-01-29 08:14] LABS: Basophils Percent Auto 0.8 % (0-2); Eosinophils Absolute Auto 0.1 X10*3/uL (0.0-0.4); Eosinophils Percent Auto 1.9 % (0-4); Hemoglobin 13.2 g/dl (12.0-16.0); Imm Gran Abs Auto 0.02 X10*3/uL (0.00-0.03); Imm Gran Pct Auto 0.4 % (0.0-0.4); Lymphocytes Absolute Auto 1.6 X10*3/uL (1.2-4.9); Mean Corpuscular HGB Conc 33.8 g/dl (31.0-35.0); Mean Corpuscular Volume 94.4 fL (80.0-98.0); Mean Platelet Volume 10.8 fL (9.4-12.3); Monocytes Absolute Auto 0.4 X10*3/uL (0.1-1.2); Monocytes Percent Auto 8.5 % (2-11); Neutrophils Percent Auto 58.4 % (45-73); Platelet Count 213 X10*3/uL (160-400); Red Blood Count 4.13 X10*6/uL (4.20-5.50); Red Cell Distribution Width 12.6 % (11.0-16.0); White Blood Count 5.2 X10*3/uL (4.8-10.8)
[2021-01-29 08:38] LABS: Alanine Aminotransferase 28 U/L (0-31); Albumin Level 3.6 g/dL (3.5-5.0); Alkaline Phosphatase 53 U/L (39-117); Anion Gap 10 (12-20); Aspartate Amino Transferase 26 U/L (5-31); Bilirubin Total 0.3 mg/dL (0.0-1.0); Blood Urea Nitrogen 12 mg/dL (9-16); Calcium 8.9 mg/dL (8.4-10.2); Carbon Dioxide 28 mmol/L (22-29); Chloride 109 mmol/L (96-108); Estimated Glomerular Filt Rate > 60; Glucose Random 76 mg/dL (60-115); Potassium 4.7 mmol/L (3.3-5.1); Sodium 142 mmol/L (135-145); Total Protein 5.9 g/dL (6.5-8.0)
[2021-01-29] MEDS: Lurasidone HCl 20 MG TABLET PO (08:55)
[2021-01-29 08:56] VITALS: BP 127/68; PULSE 57; RESP 14; TEMP 36.8; O2SAT 98
--- NOTE | 2021-01-29 13:42 | P.PNPSI_ITS ---
Subjective Subjective Date of Service: 01/29/21 Reason For Visit: Crisis Subjective Notes: Section 7 Healthcare Proxy: No Guardianship: No Medical Problems Affecting Mental Status: No Interim History: Continues to report feeling tired with Sertraline held until HS tonight. She believes it to be the stress of not having a place to live at this time. Medication Compliance: Yes Side effects from medications: Yes (feeling tired-believes it to be from stress of losing housing) Attending Groups: Yes Review of Systems Acute medical concerns: No Medical Review of Systems: unchanged Review of Systems Reports behavioral changes Psychiatric: Reports anxiety, Reports behavioral changes, Reports change in appetite, Reports depression, Reports difficulty concentrating, Reports anhedonia and Reports suicidal ideation (denies) Mental Status Exam Mental Status Exam Patient Appearance: Fatigued and Appropriate Patient Orientation: Person, Place, Time and Situation Level of Consciousness: Alert Patient Behavior: Appropriate, Talkative, Cooperative and Good Eye Contact Mood Description: Depressed Affect Description: Flat Patient Cognition Impaired: No Ability to Follow Directions: Good Speech Pattern: Clear and Spontaneous Speech Memory Description: Episodic Impaired Hallucinations: None Delusions: Not Present Thought Process: Rumination Thought Content: positive for [place], positive for Circumstantial, positive for Perseveration and positive for Suicidal Ideation (denies) Depressive Symptoms: Increased Anxiety, Diff. Making Decisions, Changes in Appetite, Hopelessness and Thoughts of /Suicide (denies) Judgement: Fair Diagnostics Vital Signs (24Hr): Vital Signs - 24 hr 01/29/21 08:56 Temperature 98.3 F Pulse Rate 57 Respiratory Rate 14 Blood Pressure 127/68 Pulse Oximetry 98 BMI result Body Mass Index 25.2 Labs Results: 01/29/21 07:59 01/29/21 07:59 Labs: Laboratory Results - last 48 hr 01/29/21 01/29/21 07:59 07:59 WBC 5.2 RBC 4.13 L Hgb 13.2 Hct 39.0 MCV 94.4 MCH 32.0 MCHC 33.8 RDW 12.6 Plt Count 213 MPV 10.8 Immature Gran % (Auto) 0.4 Neut % (Auto) 58.4 Lymph % (Auto) 30.0 [place] % (Auto) 8.5 Eos % (Auto) 1.9 Baso % (Auto) 0.8 Lymph # (Auto) 1.6 [place] # (Auto) 0.4 Eos # (Auto) 0.1 Baso # (Auto) 0.0 Abs Immat Gran (auto) 0.02 Absolute Neuts (auto) 3.0 Absolute Nucleated RBC 0.000 Nucleated RBC % (auto) 0.0 Sodium 142 Potassium 4.7 D Chloride 109 H Carbon Dioxide 28 Anion Gap 10 L BUN 12 Creatinine 0.64 Estim Creat Clear Calc 99.0 Estimated GFR > 60 Random Glucose 76 Calcium 8.9 D Total Bilirubin 0.3 AST 26 ALT 28 Alkaline Phosphatase 53 Total Protein 5.9 L Albumin 3.6 Imaging Radiology Impressions: ITS Impressions Chest X-Ray 01/16/21 12:47 IMPRESSION: No acute pneumonic process. Likely mild reactive small airway disease. Medications Medications Current Medications Acetaminophen (Acetaminophen 325 Mg Tablet) 650 mg PO Q6H PRN PRN Reason: Headache/Pain Mild Scale (1-3) Al Hydroxide/Mg Hydroxide (Magnesium Hydrox/Alum Hydrox 30 Ml Oral.Susp) 30 ml PO Q6H PRN PRN Reason: Heartburn/Nausea Benztropine Mesylate (Benztropine Mesylate 0.5 Mg Tablet) 0.5 mg PO TID PRN PRN Reason: Extrapyramidal Effects Diphenhydramine HCl (Diphenhydramine Hcl 25 Mg Tablet) 50 mg PO Q6H PRN PRN Reason: EPS Ferrous Sulfate (Ferrous Sulfate 324 Mg Tablet.Dr) 324 mg PO DAILY [facility] Last Admin: 01/29/21 08:56 Dose: Not Given Documented by: Folic Acid (Folic Acid 1 Mg Tablet) 1 mg PO DAILY [facility] Last Admin: 01/29/21 08:56 Dose: Not Given Documented by: Haloperidol (Haloperidol 5 Mg Tablet) 5 mg PO QID PRN PRN Reason: agitation,violence Hydroxyzine HCl (Hydroxyzine Hcl 25 Mg Tablet) 25 mg PO Q6H PRN PRN Reason: Anxiety Ibuprofen (Ibuprofen 600 Mg Tablet) 600 mg PO Q6H PRN PRN Reason: moderate pain Lurasidone HCl (Lurasidone Hcl 40 Mg Tablet) 40 mg PO DAILY@1700 [facility] Last Admin: 01/28/21 17:48 Dose: 40 mg Documented by: Lurasidone HCl (Lurasidone Hcl 20 Mg Tablet) 20 mg PO DAILY [facility] Last Admin: 01/29/21 08:55 Dose: 20 mg Documented by: Magnesium Hydroxide (Milk Of Magnesia 30 Ml Oral.Susp) 30 ml PO DAILY PRN PRN Reason: Constipation Multivitamins/Vitamin C (Multivitamin Tablet) 1 tab PO DAILY [facility] Last Admin: 01/29/21 08:56 Dose: Not Given Documented by: Nicotine Polacrilex (Nicotine Polacrilex 2 Mg Gum) 2 mg BUCCAL Q2H PRN PRN Reason: Nicotine Cravings Pharmacy Consult (Consult Rx Perform Med Rec) 1 each MISCELLANE ONCE PRN PRN Reason: Consult order Sertraline HCl (Sertraline Hcl 25 Mg Tablet) 25 mg PO BEDTIME [facility] Trazodone HCl (Trazodone Hcl 50 Mg Tablet) 50 mg PO BEDTIME PRN PRN Reason: Insomnia Last Admin: 01/13/21 03:50 Dose: 50 mg Documented by: Allergies Allergies Allergy/AdvReac Type Severity Reaction Status Date / Time lamotrigine [From Lamictal] AdvReac Unknown Unknown Verified 01/01/21 20:31 Benzodiazepines AdvReac pt asks Verified 01/15/21 18:18 for no benzos due to her addiction history Assessment & Plan Assessment & Plan (1) Bipolar disorder current episode depressed: Qualifiers: Current episode severity: severe Psychotic features: with psychotic features Qualified Code(s): F31.5 - Bipolar disorder, current episode depressed, severe, with psychotic features Status: Acute Code(s): F31.30 - Bipolar disorder, current episode depressed, mild or moderate severity, unspecified (2) Seasonal affective disorder: Status: Acute Code(s): F33.8 - Other recurrent depressive disorders Assessment and Plan: ongoing Ambivalent about medications and effects angry and irritable re being kept here, re medications, but also depressed and hopeless hx failed lexapro trial now on latuda and ? trileptal if she will take 01/13/21: Civil commitment filing completed Discontinue Geodon Latuda 20 mg HS Discontinue Lexapro 01/15/21 Significant evening agitation with two elopement episodes, requiring IM medications. Pt is reluctant to titrate regime of Latuda. Currently it is not effective in symptom mgt at 20 mg. She refuses increase so we will need to change regime. Plan: Discontinue Latuda Haldol 10 mg bid Trileptal 300 mg bid 01/15/21: documentation per restraint protocol. patient seen and assessed for safety. 01/16/21 agreed to latuda , change haldol to prn, and got chest xr to r/o any rib fracture- s/p restraint- prn ibuprofen for musculoskeletal pain given information re trileptal continue trileptal with latuda 01/17/21 feels no matter what she says we will do what we want- sit at latuda 40mg and trial trileptal - then pending court- 01/18/21 Continue current regime 01/20/21 Continue current regime HIREN pending Addiction Medicine will send a motor coach chauffeur to meet with pt. 01/21: continues to present guarded, thinks hospital and family agains her. despite admitting s/s of depression unable to work, worried about taking medications despite no evidence of side effect and potential benefit of reducing severe depression/suicidal thoughts which suspect are product of underlying delusional content. no changes to medications. 01/22/21: Decrease Trileptal to 150 mg daily for two days then discontinue Increase Latuda to 20 mg a.m. and continue 40 mg in the evening. (Pt requesting splitting of the dosage) Offer support for current housing issues Court 01/28/21. Weekend coverage: 01/23- pt appears fatigued, dysphoric, hopeless. Continues to be guarded, difficult to engage in meaningful conversation, insight and judgment remain poor and pt's sx appear exacerbated by recent housing issue, risk of homelessness. Latuda dose increased to 20 mg this morning. Plan to discontinue trileptal due to fatigue and to reduce polypharm, denies benefit. 01/24- Pt continues to perseverate on upcoming court and housing situation. Continues to present with sx of depression. Will discontinue trileptal due to reported lack of benefit and possible sedating SE. Pt denies safety concerns but historically is not reliable historian, guarded and presents with poor insight/ judgment. 01/25/21 Some improvement reported. HIREN 01/26/21. Pt states that she is feeling some relief today. She is now needing to manage not having a place to live and is beginning to problem solve. Discussion of antidressant trial/another mood stabilizer Will trial Sertraline 25 mg daily. Letter drafted to Professor Jessica Palomares, [facility] to validate pts admission dates at pt request. 01/26/21 HIREN scheduled for today Tolerating regime, sedation is managed she reports today. Continue regime Will draft a letter to excuse pt from Jury Duty responsibility. 01/27/[address] date 02/04/21 Tolerating regime- will continue Expressing sadness today mostly due to stress on family relationships this episode of illness has had Pt has no information on Jury Duty responsiblity-will attempt to call as pt does not have her juror ID number. 01/28/21 Continue current plan 01/29/21 Continue current plan I spent 20 minutes with the patient and/or on the patient floor today, greater than?50% of which was spent counseling/coordinating care. Patient educated on: therapeutic strategies Informed Consent: understands Reason for contiued inpatient stay Substantial Risk for: inability to function and rapid decompensation
[2021-01-29] MEDS: Lurasidone HCl 40 MG TABLET PO (17:37)
[2021-01-29 18:00] VITALS: BP 147/76; PULSE 60; TEMP 36.5
[2021-01-29] MEDS: Sertraline HCL 25 MG TABLET PO (21:11)
--- NOTE | 2021-01-30 06:12 | HO.PSYCHPN ---
Subjective Subjective Date of Service: 01/30/21 Reason For Visit: Crisis Interim History: Continues to report feeling tired with Sertraline held until HS tonight. She believes it to be the stress of not having a place to live at this time. 01/30: Pleasant . No complaints Better med compliance. Hx elopement noted. Expects hearing to be extended Review of Systems Review of Systems Yes all other systems are reviewed and are negative Reports behavioral changes, Reports confusion and Reports memory loss Psychiatric: Reports abnormal sleep pattern, Reports anxiety, Reports behavioral changes, Reports change in appetite, Reports confusion, Reports depression, Reports difficulty concentrating, Reports auditory hallucinations, Reports hopelessness, Reports irritability, Reports anhedonia, Reports memory loss, Reports mood swings, Reports paranoia and Reports suicidal ideation (denies) Allergic/Immunologic: Reports no additional allergic/immunologic complaints Mental Status Exam Mental Status Exam Narrative: Appearance:?Fatigued and Disheveled Patient Orientation:?Person, Place, Time and Situation Level of Consciousness:?Alert Patient Behavior:?Appropriate, Guarded, Talkative, Cooperative, Suspicious, Wandering, Anxious, Resistive to Care, Fatigued, Distractible and Impulsive Mood Description:?Depressed and Angry Affect Description:?Labile Patient Cognition Impaired:?No Ability to Follow Directions:?Good Speech Pattern:?Perseverating, Spontaneous Speech and Soft-Spoken Memory Description:?Episodic Impaired Hallucinations:?None (denies) Delusions:?Paranoid Ideation Perceptual Disturbances:?Depersonalization and Derealization Thought Process:?Distracted and Rumination Thought Content:?positive for [place], positive for Circumstantial, positive for Perseveration and positive for Suicidal Ideation Depressive Symptoms:?Increased Anxiety, Diff. Making Decisions, Increased Irritability, Loss of Int. in Activity, Hopelessness, Unhappiness, Increased Fatigue, Thoughts of /Suicide, Low Self Esteem, Loss of Energy and Difficulty Concentrating Judgement:?Poor Patient Appearance: Fatigued and Appropriate Patient Orientation: Person, Place, Time and Situation Level of Consciousness: Alert Patient Behavior: Appropriate, Talkative, Cooperative and Good Eye Contact Mood Description: Depressed Affect Description: Flat Patient Cognition Impaired: No Ability to Follow Directions: Good Speech Pattern: Clear and Spontaneous Speech Memory Description: Episodic Impaired Diagnostics Vital Signs (24Hr): Vital Signs - 24 hr 01/29/21 08:56 01/29/21 18:00 Temperature 98.3 F 97.7 F Pulse Rate 57 60 Respiratory Rate 14 Blood Pressure 127/68 147/76 H Pulse Oximetry 98 BMI result Body Mass Index 25.2 Labs Results: 01/29/21 07:59 01/29/21 07:59 Labs: Laboratory Results - last 48 hr 01/29/21 01/29/21 07:59 07:59 WBC 5.2 RBC 4.13 L Hgb 13.2 Hct 39.0 MCV 94.4 MCH 32.0 MCHC 33.8 RDW 12.6 Plt Count 213 MPV 10.8 Immature Gran % (Auto) 0.4 Neut % (Auto) 58.4 Lymph % (Auto) 30.0 Harris % (Auto) 8.5 Eos % (Auto) 1.9 Baso % (Auto) 0.8 Lymph # (Auto) 1.6 Harris # (Auto) 0.4 Eos # (Auto) 0.1 Baso # (Auto) 0.0 Abs Immat Gran (auto) 0.02 Absolute Neuts (auto) 3.0 Absolute Nucleated RBC 0.000 Nucleated RBC % (auto) 0.0 Sodium 142 Potassium 4.7 D Chloride 109 H Carbon Dioxide 28 Anion Gap 10 L BUN 12 Creatinine 0.64 Estim Creat Clear Calc 99.0 Estimated GFR > 60 Random Glucose 76 Calcium 8.9 D Total Bilirubin 0.3 AST 26 ALT 28 Alkaline Phosphatase 53 Total Protein 5.9 L Albumin 3.6 Imaging Radiology Impressions: ITS Impressions Chest X-Ray 01/16/21 12:47 IMPRESSION: No acute pneumonic process. Likely mild reactive small airway disease. Medications Medications Current Medications Acetaminophen (Acetaminophen 325 Mg Tablet) 650 mg PO Q6H PRN PRN Reason: Headache/Pain Mild Scale (1-3) Al Hydroxide/Mg Hydroxide (Magnesium Hydrox/Alum Hydrox 30 Ml Oral.Susp) 30 ml PO Q6H PRN PRN Reason: Heartburn/Nausea Benztropine Mesylate (Benztropine Mesylate 0.5 Mg Tablet) 0.5 mg PO TID PRN PRN Reason: Extrapyramidal Effects Diphenhydramine HCl (Diphenhydramine Hcl 25 Mg Tablet) 50 mg PO Q6H PRN PRN Reason: EPS Ferrous Sulfate (Ferrous Sulfate 324 Mg Tablet.Dr) 324 mg PO DAILY ANA Last Admin: 01/29/21 08:56 Dose: Not Given Documented by: Folic Acid (Folic Acid 1 Mg Tablet) 1 mg PO DAILY [facility] Last Admin: 01/29/21 08:56 Dose: Not Given Documented by: Haloperidol (Haloperidol 5 Mg Tablet) 5 mg PO QID PRN PRN Reason: agitation,violence Hydroxyzine HCl (Hydroxyzine Hcl 25 Mg Tablet) 25 mg PO Q6H PRN PRN Reason: Anxiety Ibuprofen (Ibuprofen 600 Mg Tablet) 600 mg PO Q6H PRN PRN Reason: moderate pain Lurasidone HCl (Lurasidone Hcl 40 Mg Tablet) 40 mg PO DAILY@1700 [facility] Last Admin: 01/29/21 17:37 Dose: 40 mg Documented by: Lurasidone HCl (Lurasidone Hcl 20 Mg Tablet) 20 mg PO DAILY [facility] Last Admin: 01/29/21 08:55 Dose: 20 mg Documented by: Magnesium Hydroxide (Milk Of Magnesia 30 Ml Oral.Susp) 30 ml PO DAILY PRN PRN Reason: Constipation Multivitamins/Vitamin C (Multivitamin Tablet) 1 tab PO DAILY [facility] Last Admin: 01/29/21 08:56 Dose: Not Given Documented by: Nicotine Polacrilex (Nicotine Polacrilex 2 Mg Gum) 2 mg BUCCAL Q2H PRN PRN Reason: Nicotine Cravings Pharmacy Consult (Consult Rx Perform Med Rec) 1 each MISCELLANE ONCE PRN PRN Reason: Consult order Sertraline HCl (Sertraline Hcl 25 Mg Tablet) 25 mg PO BEDTIME [facility] Last Admin: 01/29/21 21:11 Dose: 25 mg Documented by: Trazodone HCl (Trazodone Hcl 50 Mg Tablet) 50 mg PO BEDTIME PRN PRN Reason: Insomnia Last Admin: 01/13/21 03:50 Dose: 50 mg Documented by: Allergies Allergies Allergy/AdvReac Type Severity Reaction Status Date / Time lamotrigine [From Lamictal] AdvReac Unknown Unknown Verified 01/01/21 20:31 Benzodiazepines AdvReac pt asks Verified 01/15/21 18:18 for no benzos due to her addiction history Assessment & Plan Assessment & Plan (1) Bipolar disorder current episode depressed: Qualifiers: Current episode severity: severe Psychotic features: with psychotic features Qualified Code(s): F31.5 - Bipolar disorder, current episode depressed, severe, with psychotic features Status: Acute Code(s): F31.30 - Bipolar disorder, current episode depressed, mild or moderate severity, unspecified (2) Seasonal affective disorder: Status: Acute Code(s): F33.8 - Other recurrent depressive disorders Assessment and Plan: ongoing Ambivalent about medications and effects angry and irritable re being kept here, re medications, but also depressed and hopeless hx failed lexapro trial now on latuda and ? trileptal if she will take 01/13/21: Civil commitment filing completed Discontinue Geodon Latuda 20 mg HS Discontinue Lexapro 01/15/21 Significant evening agitation with two elopement episodes, requiring IM medications. Pt is reluctant to titrate regime of Latuda. Currently it is not effective in symptom mgt at 20 mg. She refuses increase so we will need to change regime. Plan: Discontinue Latuda Haldol 10 mg bid Trileptal 300 mg bid 01/15/21: documentation per restraint protocol. patient seen and assessed for safety. 01/16/21 agreed to latuda , change haldol to prn, and got chest xr to r/o any rib fracture- s/p restraint- prn ibuprofen for musculoskeletal pain given information re trileptal continue trileptal with latuda 01/17/21 feels no matter what she says we will do what we want- sit at latuda 40mg and trial trileptal - then pending court- 01/18/21 Continue current regime 01/20/21 Continue current regime HIREN pending Addiction Medicine will send a assistant baseball coach to meet with pt. 01/21: continues to present guarded, thinks hospital and family agains her. despite admitting s/s of depression unable to work, worried about taking medications despite no evidence of side effect and potential benefit of reducing severe depression/suicidal thoughts which suspect are product of underlying delusional content. no changes to medications. 01/22/21: Decrease Trileptal to 150 mg daily for two days then discontinue Increase Latuda to 20 mg a.m. and continue 40 mg in the evening. (Pt requesting splitting of the dosage) Offer support for current housing issues Court 01/28/21. Weekend coverage: 01/23- pt appears fatigued, dysphoric, hopeless. Continues to be guarded, difficult to engage in meaningful conversation, insight and judgment remain poor and pt's sx appear exacerbated by recent housing issue, risk of homelessness. Latuda dose increased to 20 mg this morning. Plan to discontinue trileptal due to fatigue and to reduce polypharm, denies benefit. 01/24- Pt continues to perseverate on upcoming court and housing situation. Continues to present with sx of depression. Will discontinue trileptal due to reported lack of benefit and possible sedating SE. Pt denies safety concerns but historically is not reliable historian, guarded and presents with poor insight/ judgment. 01/25/21 Some improvement reported. HIREN 01/26/21. Pt states that she is feeling some relief today. She is now needing to manage not having a place to live and is beginning to problem solve. Discussion of antidressant trial/another mood stabilizer Will trial Sertraline 25 mg daily. Letter drafted to Professor Jessica Palomares, [facility] to validate pts admission dates at pt request. 01/26/21 HIREN scheduled for today Tolerating regime, sedation is managed she reports today. Continue regime Will draft a letter to excuse pt from Jury Duty responsibility. 01/27/[address] date 02/04/21 Tolerating regime- will continue Expressing sadness today mostly due to stress on family relationships this episode of illness has had Pt has no information on Jury Duty responsiblity-will attempt to call as pt does not have her juror ID number. 01/28/21 Continue current plan 01/29/21 Continue current plan I spent minutes with the patient and/or on the patient floor today, greater than?50% of which was spent counseling/coordinating care. Reason for contiued inpatient stay Substantial Risk for: rapid decompensation
[2021-01-30] MEDS: Lurasidone HCl 20 MG TABLET PO (08:21)
[2021-01-30 08:31] VITALS: BP 169/77; PULSE 56; RESP 16; TEMP 36.7; O2SAT 98
[2021-01-30] MEDS: Lurasidone HCl 40 MG TABLET PO (17:53)
[2021-01-30 18:00] VITALS: BP 144/81; PULSE 52; TEMP 36.8
[2021-01-30] MEDS: Sertraline HCL 25 MG TABLET PO (21:01)
[2021-01-31] MEDS: Lurasidone HCl 20 MG TABLET PO (08:38)
--- NOTE | 2021-01-31 15:06 | P.PNPSI_ITS ---
Subjective Subjective Date of Service: 01/31/21 Reason For Visit: Crisis Interim History: Continues to report feeling tired with Sertraline held until HS tonight. She believes it to be the stress of not having a place to live at this time. 01/30: Pleasant . No complaints Better med compliance. Hx elopement noted. Expects hearing to be extended 01/31/21: Pleasant. No complaints. Med compliant. Review of Systems Review of Systems Yes all other systems are reviewed and are negative Reports behavioral changes, Reports confusion and Reports memory loss Psychiatric: Reports abnormal sleep pattern, Reports anxiety, Reports behavioral changes, Reports change in appetite, Reports confusion, Reports depression, Reports difficulty concentrating, Reports auditory hallucinations, Reports hopelessness, Reports irritability, Reports anhedonia, Reports memory loss, Reports mood swings, Reports paranoia and Reports suicidal ideation (denies) Allergic/Immunologic: Reports no additional allergic/immunologic complaints Mental Status Exam Mental Status Exam Narrative: Appearance:?Fatigued and Disheveled Patient Orientation:?Person, Place, Time and Situation Level of Consciousness:?Alert Patient Behavior:?Appropriate, Guarded, Talkative, Cooperative, Suspicious, Wandering, Anxious, Resistive to Care, Fatigued, Distractible and Impulsive Mood Description:?Depressed and Angry Affect Description:?Labile Patient Cognition Impaired:?No Ability to Follow Directions:?Good Speech Pattern:?Perseverating, Spontaneous Speech and Soft-Spoken Memory Description:?Episodic Impaired Hallucinations:?None (denies) Delusions:?Paranoid Ideation Perceptual Disturbances:?Depersonalization and Derealization Thought Process:?Distracted and Rumination Thought Content:?positive for [place], positive for [place]um[place], positive for Perseveration and positive for Suicidal Ideation Depressive Symptoms:?Increased Anxiety, Diff. Making Decisions, Increased Irritability, Loss of Int. in Activity, Hopelessness, Unhappiness, Increased Fatigue, Thoughts of /Suicide, Low Self Esteem, Loss of Energy and Difficulty Concentrating Judgement:?Poor Patient Appearance: Fatigued and Appropriate Patient Orientation: Person, Place, Time and Situation Level of Consciousness: Alert Patient Behavior: Appropriate, Talkative, Cooperative and Good Eye Contact Mood Description: Depressed Affect Description: Flat Patient Cognition Impaired: No Ability to Follow Directions: Good Speech Pattern: Clear and Spontaneous Speech Memory Description: Episodic Impaired Diagnostics Vital Signs (24Hr): Vital Signs - 24 hr 01/30/21 18:00 Temperature 98.3 F Pulse Rate 52 Blood Pressure 144/81 H BMI result Body Mass Index 25.2 Labs Results: 01/29/21 07:59 01/29/21 07:59 Imaging Radiology Impressions: ITS Impressions Chest X-Ray 01/16/21 12:47 IMPRESSION: No acute pneumonic process. Likely mild reactive small airway disease. Medications Medications Current Medications Acetaminophen (Acetaminophen 325 Mg Tablet) 650 mg PO Q6H PRN PRN Reason: Headache/Pain Mild Scale (1-3) Al Hydroxide/Mg Hydroxide (Magnesium Hydrox/Alum Hydrox 30 Ml Oral.Susp) 30 ml PO Q6H PRN PRN Reason: Heartburn/Nausea Benztropine Mesylate (Benztropine Mesylate 0.5 Mg Tablet) 0.5 mg PO TID PRN PRN Reason: Extrapyramidal Effects Diphenhydramine HCl (Diphenhydramine Hcl 25 Mg Tablet) 50 mg PO Q6H PRN PRN Reason: EPS Ferrous Sulfate (Ferrous Sulfate 324 Mg Tablet.Dr) 324 mg PO DAILY [facility] Last Admin: 01/31/21 08:38 Dose: Not Given Documented by: Folic Acid (Folic Acid 1 Mg Tablet) 1 mg PO DAILY [facility] Last Admin: 01/31/21 08:38 Dose: Not Given Documented by: Haloperidol (Haloperidol 5 Mg Tablet) 5 mg PO QID PRN PRN Reason: agitation,violence Hydroxyzine HCl (Hydroxyzine Hcl 25 Mg Tablet) 25 mg PO Q6H PRN PRN Reason: Anxiety Ibuprofen (Ibuprofen 600 Mg Tablet) 600 mg PO Q6H PRN PRN Reason: moderate pain Lurasidone HCl (Lurasidone Hcl 40 Mg Tablet) 40 mg PO DAILY@1700 [facility] Last Admin: 01/30/21 17:53 Dose: 40 mg Documented by: Lurasidone HCl (Lurasidone Hcl 20 Mg Tablet) 20 mg PO DAILY [facility] Last Admin: 01/31/21 08:38 Dose: 20 mg Documented by: Magnesium Hydroxide (Milk Of Magnesia 30 Ml Oral.Susp) 30 ml PO DAILY PRN PRN Reason: Constipation Multivitamins/Vitamin C (Multivitamin Tablet) 1 tab PO DAILY [facility] Last Admin: 01/31/21 08:38 Dose: Not Given Documented by: Nicotine Polacrilex (Nicotine Polacrilex 2 Mg Gum) 2 mg BUCCAL Q2H PRN PRN Reason: Nicotine Cravings Pharmacy Consult (Consult Rx Perform Med Rec) 1 each MISCELLANE ONCE PRN PRN Reason: Consult order Sertraline HCl (Sertraline Hcl 25 Mg Tablet) 25 mg PO BEDTIME ANA Last Admin: 01/30/21 21:01 Dose: 25 mg Documented by: Trazodone HCl (Trazodone Hcl 50 Mg Tablet) 50 mg PO BEDTIME PRN PRN Reason: Insomnia Last Admin: 01/13/21 03:50 Dose: 50 mg Documented by: Allergies Allergies Allergy/AdvReac Type Severity Reaction Status Date / Time lamotrigine [From Lamictal] AdvReac Unknown Unknown Verified 01/01/21 20:31 Benzodiazepines AdvReac pt asks Verified 01/15/21 18:18 for no benzos due to her addiction history Assessment & Plan Assessment & Plan (1) Bipolar disorder current episode depressed: Qualifiers: Current episode severity: severe Psychotic features: with psychotic features Qualified Code(s): F31.5 - Bipolar disorder, current episode depressed, severe, with psychotic features Status: Acute Code(s): F31.30 - Bipolar disorder, current episode depressed, mild or moderate severity, unspecified (2) Seasonal affective disorder: Status: Acute Code(s): F33.8 - Other recurrent depressive disorders Assessment and Plan: ongoing Ambivalent about medications and effects angry and irritable re being kept here, re medications, but also depressed and hopeless hx failed lexapro trial now on latuda and ? trileptal if she will take 01/13/21: Civil commitment filing completed Discontinue Geodon Latuda 20 mg HS Discontinue Lexapro 01/15/21 Significant evening agitation with two elopement episodes, requiring IM medications. Pt is reluctant to titrate regime of Latuda. Currently it is not effective in symptom mgt at 20 mg. She refuses increase so we will need to change regime. Plan: Discontinue Latuda Haldol 10 mg bid Trileptal 300 mg bid 01/15/21: documentation per restraint protocol. patient seen and assessed for safety. 01/16/21 agreed to latuda , change haldol to prn, and got chest xr to r/o any rib fracture- s/p restraint- prn ibuprofen for musculoskeletal pain given information re trileptal continue trileptal with latuda 01/17/21 feels no matter what she says we will do what we want- sit at latuda 40mg and trial trileptal - then pending court- 01/18/21 Continue current regime 01/20/21 Continue current regime HIREN pending Addiction Medicine will send a production recovery operator to meet with pt. 01/21: continues to present guarded, thinks hospital and family agains her. despite admitting s/s of depression unable to work, worried about taking medications despite no evidence of side effect and potential benefit of reducing severe depression/suicidal thoughts which suspect are product of underlying delusional content. no changes to medications. 01/22/21: Decrease Trileptal to 150 mg daily for two days then discontinue Increase Latuda to 20 mg a.m. and continue 40 mg in the evening. (Pt requesting splitting of the dosage) Offer support for current housing issues Court 01/28/21. Weekend coverage: 01/23- pt appears fatigued, dysphoric, hopeless. Continues to be guarded, difficult to engage in meaningful conversation, insight and judgment remain poor and pt's sx appear exacerbated by recent housing issue, risk of homelessness. Latuda dose increased to 20 mg this morning. Plan to discontinue trileptal due to fatigue and to reduce polypharm, denies benefit. 01/24- Pt continues to perseverate on upcoming court and housing situation. Continues to present with sx of depression. Will discontinue trileptal due to reported lack of benefit and possible sedating SE. Pt denies safety concerns but historically is not reliable historian, guarded and presents with poor insight/ judgment. 01/25/21 Some improvement reported. HIREN 01/26/21. Pt states that she is feeling some relief today. She is now needing to manage not having a place to live and is beginning to problem solve. Discussion of antidressant trial/another mood stabilizer Will trial Sertraline 25 mg daily. Letter drafted to Professor Jessica Palomares, [facility] to validate pts admission dates at pt request. 01/26/21 HIREN scheduled for today Tolerating regime, sedation is managed she reports today. Continue regime Will draft a letter to excuse pt from Jury Duty responsibility. 01/27/[address] date 02/04/21 Tolerating regime- will continue Expressing sadness today mostly due to stress on family relationships this episode of illness has had Pt has no information on Jury Duty responsiblity-will attempt to call as pt does not have her juror ID number. 01/28/21 Continue current plan 01/29/21 Continue current plan 01/31/21: Ct plan I spent minutes with the patient and/or on the patient floor today, gr eater than?50% of which was spent counseling/coordinating care. Reason for contiued inpatient stay Substantial Risk for: inability to function
[2021-01-31 17:46] VITALS: BP 130/79; PULSE 58; RESP 18; TEMP 36.7; O2SAT 99
[2021-01-31] MEDS: Lurasidone HCl 40 MG TABLET PO (18:01)
[2021-01-31] MEDS: Sertraline HCL 25 MG TABLET PO (20:45)
[2021-02-01] MEDS: Lurasidone HCl 20 MG TABLET PO (09:17)
--- NOTE | 2021-02-01 13:49 | HO.PSYCHPN ---
Subjective Subjective Date of Service: 02/02/21 Reason For Visit: Crisis Subjective Notes: Section 7 Healthcare Proxy: No Guardianship: No Medical Problems Affecting Mental Status: No Interim History: Court 02/04/21. Pt reports feeling overwhelmed with housing issues. She hopes we will not need court. Wanting discharge so she can attend to her housing situation. Denies SI, reports symptoms of depression are improved, however appears fatigued and perseverative with current situation-looking at options. Discussed with pt having a solid plan of where she will go upon leaving-to her former home-to [place] with family. Discussed rationale for not wanting pt to discharge without a housing plan and she agrees this would be an added stress and setback. Discussed reported concerns about Sertraline- I think the medicine is good-I think I am just so anxious about my housing that it is effecting me. Medication Compliance: Yes Side effects from medications: No Attending Groups: Yes Review of Systems Acute medical concerns: No Medical Review of Systems: unchanged Review of Systems Psychiatric: Reports anxiety, Reports depression, Reports difficulty concentrating and Reports suicidal ideation (denies) Mental Status Exam Mental Status Exam Patient Appearance: Fatigued Patient Orientation: Person, Place, Time and Situation Level of Consciousness: Alert Patient Behavior: Talkative, Cooperative, Anxious and Good Eye Contact Mood Description: Anxious and Flat Affect Description: Flat Patient Cognition Impaired: No Ability to Follow Directions: Good Speech Pattern: Perseverating, Spontaneous Speech and Soft-Spoken Memory Description: Intact Hallucinations: None Delusions: Not Present Thought Process: Distracted, Rumination and Goal Oriented Thought Content: positive for [employer] and positive for Circumstantial Depressive Symptoms: Increased Anxiety, Diff. Making Decisions and Low Self Esteem Judgement: Fair Diagnostics Vital Signs (24Hr): Vital Signs - 24 hr 01/31/21 17:46 Temperature 98.0 F Pulse Rate 58 Respiratory Rate 18 Blood Pressure 130/79 Pulse Oximetry 99 BMI result Body Mass Index 25.2 Labs Results: 01/29/21 07:59 01/29/21 07:59 Imaging Radiology Impressions: ITS Impressions Chest X-Ray 01/16/21 12:47 IMPRESSION: No acute pneumonic process. Likely mild reactive small airway disease. Medications Medications Current Medications Acetaminophen (Acetaminophen 325 Mg Tablet) 650 mg PO Q6H PRN PRN Reason: Headache/Pain Mild Scale (1-3) Al Hydroxide/Mg Hydroxide (Magnesium Hydrox/Alum Hydrox 30 Ml Oral.Susp) 30 ml PO Q6H PRN PRN Reason: Heartburn/Nausea Benztropine Mesylate (Benztropine Mesylate 0.5 Mg Tablet) 0.5 mg PO TID PRN PRN Reason: Extrapyramidal Effects Diphenhydramine HCl (Diphenhydramine Hcl 25 Mg Tablet) 50 mg PO Q6H PRN PRN Reason: EPS Ferrous Sulfate (Ferrous Sulfate 324 Mg Tablet.Dr) 324 mg PO DAILY [facility] Last Admin: 02/01/21 09:17 Dose: Not Given Documented by: Folic Acid (Folic Acid 1 Mg Tablet) 1 mg PO DAILY [facility] Last Admin: 02/01/21 09:17 Dose: Not Given Documented by: Haloperidol (Haloperidol 5 Mg Tablet) 5 mg PO QID PRN PRN Reason: agitation,violence Hydroxyzine HCl (Hydroxyzine Hcl 25 Mg Tablet) 25 mg PO Q6H PRN PRN Reason: Anxiety Ibuprofen (Ibuprofen 600 Mg Tablet) 600 mg PO Q6H PRN PRN Reason: moderate pain Lurasidone HCl (Lurasidone Hcl 40 Mg Tablet) 40 mg PO DAILY@1700 [facility] Last Admin: 01/31/21 18:01 Dose: 40 mg Documented by: Lurasidone HCl (Lurasidone Hcl 20 Mg Tablet) 20 mg PO DAILY [facility] Last Admin: 02/01/21 09:17 Dose: 20 mg Documented by: Magnesium Hydroxide (Milk Of Magnesia 30 Ml Oral.Susp) 30 ml PO DAILY PRN PRN Reason: Constipation Multivitamins/Vitamin C (Multivitamin Tablet) 1 tab PO DAILY [facility] Last Admin: 02/01/21 09:17 Dose: Not Given Documented by: Nicotine Polacrilex (Nicotine Polacrilex 2 Mg Gum) 2 mg BUCCAL Q2H PRN PRN Reason: Nicotine Cravings Pharmacy Consult (Consult Rx Perform Med Rec) 1 each MISCELLANE ONCE PRN PRN Reason: Consult order Sertraline HCl (Sertraline Hcl 25 Mg Tablet) 25 mg PO BEDTIME [facility] Last Admin: 01/31/21 20:45 Dose: 25 mg Documented by: Trazodone HCl (Trazodone Hcl 50 Mg Tablet) 50 mg PO BEDTIME PRN PRN Reason: Insomnia Last Admin: 01/13/21 03:50 Dose: 50 mg Documented by: Allergies Allergies Allergy/AdvReac Type Severity Reaction Status Date / Time lamotrigine [From Lamictal] AdvReac Unknown Unknown Verified 01/01/21 20:31 Benzodiazepines AdvReac pt asks Verified 01/15/21 18:18 for no benzos due to her addiction history Assessment & Plan Assessment & Plan (1) Bipolar disorder current episode depressed: Qualifiers: Current episode severity: severe Psychotic features: with psychotic features Qualified Code(s): F31.5 - Bipolar disorder, current episode depressed, severe, with psychotic features Status: Acute Code(s): F31.30 - Bipolar disorder, current episode depressed, mild or moderate severity, unspecified (2) Seasonal affective disorder: Status: Acute Code(s): F33.8 - Other recurrent depressive disorders Assessment and Plan: ongoing Ambivalent about medications and effects angry and irritable re being kept here, re medications, but also depressed and hopeless hx failed lexapro trial now on latuda and ? trileptal if she will take 01/13/21: Civil commitment filing completed Discontinue Geodon Latuda 20 mg HS Discontinue Lexapro 01/15/21 Significant evening agitation with two elopement episodes, requiring IM medications. Pt is reluctant to titrate regime of Latuda. Currently it is not effective in symptom mgt at 20 mg. She refuses increase so we will need to change regime. Plan: Discontinue Latuda Haldol 10 mg bid Trileptal 300 mg bid 01/15/21: documentation per restraint protocol. patient seen and assessed for safety. 01/16/21 agreed to latuda , change haldol to prn, and got chest xr to r/o any rib fracture- s/p restraint- prn ibuprofen for musculoskeletal pain given information re trileptal continue trileptal with latuda 01/17/21 feels no matter what she says we will do what we want- sit at latuda 40mg and trial trileptal - then pending court- 01/18/21 Continue current regime 01/20/21 Continue current regime HIREN pending Addiction Medicine will send a recovery analyst to meet with pt. 01/21: continues to present guarded, thinks hospital and family agains her. despite admitting s/s of depression unable to work, worried about taking medications despite no evidence of side effect and potential benefit of reducing severe depression/suicidal thoughts which suspect are product of underlying delusional content. no changes to medications. 01/22/21: Decrease Trileptal to 150 mg daily for two days then discontinue Increase Latuda to 20 mg a.m. and continue 40 mg in the evening. (Pt requesting splitting of the dosage) Offer support for current housing issues Court 01/28/21. Weekend coverage: 01/23- pt appears fatigued, dysphoric, hopeless. Continues to be guarded, difficult to engage in meaningful conversation, insight and judgment remain poor and pt's sx appear exacerbated by recent housing issue, risk of homelessness. Latuda dose increased to 20 mg this morning. Plan to discontinue trileptal due to fatigue and to reduce polypharm, denies benefit. 01/24- Pt continues to perseverate on upcoming court and housing situation. Continues to present with sx of depression. Will discontinue trileptal due to reported lack of benefit and possible sedating SE. Pt denies safety concerns but historically is not reliable historian, guarded and presents with poor insight/ judgment. 01/25/21 Some improvement reported. HIREN 01/26/21. Pt states that she is feeling some relief today. She is now needing to manage not having a place to live and is beginning to problem solve. Discussion of antidressant trial/another mood stabilizer Will trial Sertraline 25 mg daily. Letter drafted to Professor Jessica Palomares, [facility] to validate pts admission dates at pt request. 01/26/21 HIREN scheduled for today Tolerating regime, sedation is managed she reports today. Continue regime Will draft a letter to excuse pt from Jury Duty responsibility. 01/27/[address] date 02/04/21 Tolerating regime- will continue Expressing sadness today mostly due to stress on family relationships this episode of illness has had Pt has no information on Jury Duty responsiblity-will attempt to call as pt does not have her juror ID number. 01/28/21 Continue current plan 01/29/21 Continue current plan 01/31/21: Ct plan 02/01/21: Pt active in looking for housing with team. Court 02/04. Asks for no medication changes today. Reports stress due to housing situation. I spent 25 minutes with the patient and/or on the patient floor today, greater than?50% of which was spent counseling/coordinating care. Patient educated on: therapeutic strategies Informed Consent: understands and further education needed Reason for contiued inpatient stay Substantial Risk for: harm to self, inability to function and rapid decompensation
[2021-02-01 18:00] VITALS: BP 140/85; PULSE 85; TEMP 37
[2021-02-01] MEDS: Lurasidone HCl 40 MG TABLET PO (18:22)
[2021-02-01] MEDS: Sertraline HCL 25 MG TABLET PO (20:51)
[2021-02-02] MEDS: Lurasidone HCl 20 MG TABLET PO (08:23)
[2021-02-02] MEDS: Lurasidone HCl 40 MG TABLET PO (16:59)
[2021-02-02 18:00] VITALS: BP 134/72; PULSE 60; TEMP 36.6
[2021-02-02] MEDS: Sertraline HCL 25 MG TABLET PO (20:26)
--- NOTE | 2021-02-02 21:31 | HO.PSYCHPN ---
Subjective Subjective Date of Service: 02/02/21 Reason For Visit: Crisis Subjective Notes: Section 7 Healthcare Proxy: No Guardianship: No Medical Problems Affecting Mental Status: No Interim History: Penny discussed her level of worry and concern about not having housing. I realize now how horribly I have messed up my entire life and the work it will take me to get it back again I never should have let this get this bad. I won't go off the medicine again. Medication Compliance: Yes Side effects from medications: No Attending Groups: Yes Review of Systems Acute medical concerns: No Medical Review of Systems: unchanged Review of Systems Psychiatric: Reports anxiety and Reports other (worry about her housing) Mental Status Exam Mental Status Exam Patient Appearance: Appropriate Patient Orientation: Person, Place, Time and Situation Level of Consciousness: Alert Patient Behavior: Talkative, Cooperative, Anxious and Good Eye Contact Mood Description: Anxious and Flat Affect Description: Anxious and Flat Patient Cognition Impaired: No Ability to Follow Directions: Good Speech Pattern: Spontaneous Speech and Soft-Spoken Memory Description: Intact Hallucinations: None Delusions: Not Present Thought Process: Rumination and Goal Oriented Thought Content: positive for [place] and positive for Circumstantial Depressive Symptoms: Increased Anxiety, Diff. Making Decisions, Feelings of Guilt and Low Self Esteem Judgement: Fair Diagnostics Vital Signs (24Hr): Vital Signs - 24 hr 02/02/21 18:00 Temperature 98 F Pulse Rate 60 Blood Pressure 134/72 BMI result Body Mass Index 25.2 Labs Results: 01/29/21 07:59 01/29/21 07:59 Imaging Radiology Impressions: ITS Impressions Chest X-Ray 01/16/21 12:47 IMPRESSION: No acute pneumonic process. Likely mild reactive small airway disease. Medications Medications Current Medications Acetaminophen (Acetaminophen 325 Mg Tablet) 650 mg PO Q6H PRN PRN Reason: Headache/Pain Mild Scale (1-3) Al Hydroxide/Mg Hydroxide (Magnesium Hydrox/Alum Hydrox 30 Ml Oral.Susp) 30 ml PO Q6H PRN PRN Reason: Heartburn/Nausea Benztropine Mesylate (Benztropine Mesylate 0.5 Mg Tablet) 0.5 mg PO TID PRN PRN Reason: Extrapyramidal Effects Diphenhydramine HCl (Diphenhydramine Hcl 25 Mg Tablet) 50 mg PO Q6H PRN PRN Reason: EPS Ferrous Sulfate (Ferrous Sulfate 324 Mg Tablet.Dr) 324 mg PO DAILY [facility] Last Admin: 02/02/21 08:16 Dose: Not Given Documented by: Folic Acid (Folic Acid 1 Mg Tablet) 1 mg PO DAILY [facility] Last Admin: 02/02/21 08:16 Dose: Not Given Documented by: Haloperidol (Haloperidol 5 Mg Tablet) 5 mg PO QID PRN PRN Reason: agitation,violence Hydroxyzine HCl (Hydroxyzine Hcl 25 Mg Tablet) 25 mg PO Q6H PRN PRN Reason: Anxiety Ibuprofen (Ibuprofen 600 Mg Tablet) 600 mg PO Q6H PRN PRN Reason: moderate pain Lurasidone HCl (Lurasidone Hcl 40 Mg Tablet) 40 mg PO DAILY@1700 [facility] Last Admin: 02/02/21 16:59 Dose: 40 mg Documented by: Lurasidone HCl (Lurasidone Hcl 20 Mg Tablet) 20 mg PO DAILY [facility] Last Admin: 02/02/21 08:23 Dose: 20 mg Documented by: Magnesium Hydroxide (Milk Of Magnesia 30 Ml Oral.Susp) 30 ml PO DAILY PRN PRN Reason: Constipation Multivitamins/Vitamin C (Multivitamin Tablet) 1 tab PO DAILY [facility] Last Admin: 02/02/21 08:16 Dose: Not Given Documented by: Nicotine Polacrilex (Nicotine Polacrilex 2 Mg Gum) 2 mg BUCCAL Q2H PRN PRN Reason: Nicotine Cravings Pharmacy Consult (Consult Rx Perform Med Rec) 1 each MISCELLANE ONCE PRN PRN Reason: Consult order Sertraline HCl (Sertraline Hcl 25 Mg Tablet) 25 mg PO BEDTIME [facility] Last Admin: 02/02/21 20:26 Dose: 25 mg Documented by: Trazodone HCl (Trazodone Hcl 50 Mg Tablet) 50 mg PO BEDTIME PRN PRN Reason: Insomnia Last Admin: 01/13/21 03:50 Dose: 50 mg Documented by: Allergies Allergies Allergy/AdvReac Type Severity Reaction Status Date / Time lamotrigine [From Lamictal] AdvReac Unknown Unknown Verified 01/01/21 20:31 Benzodiazepines AdvReac pt asks Verified 01/15/21 18:18 for no benzos due to her addiction history Assessment & Plan Assessment & Plan (1) Bipolar disorder current episode depressed: Qualifiers: Current episode severity: severe Psychotic features: with psychotic features Qualified Code(s): F31.5 - Bipolar disorder, current episode depressed, severe, with psychotic features Status: Acute Code(s): F31.30 - Bipolar disorder, current episode depressed, mild or moderate severity, unspecified (2) Seasonal affective disorder: Status: Acute Code(s): F33.8 - Other recurrent depressive disorders Assessment and Plan: ongoing Ambivalent about medications and effects angry and irritable re being kept here, re medications, but also depressed and hopeless hx failed lexapro trial now on latuda and ? trileptal if she will take 01/13/21: Civil commitment filing completed Discontinue Geodon Latuda 20 mg HS Discontinue Lexapro 01/15/21 Significant evening agitation with two elopement episodes, requiring IM medications. Pt is reluctant to titrate regime of Latuda. Currently it is not effective in symptom mgt at 20 mg. She refuses increase so we will need to change regime. Plan: Discontinue Latuda Haldol 10 mg bid Trileptal 300 mg bid 01/15/21: documentation per restraint protocol. patient seen and assessed for safety. 01/16/21 agreed to latuda , change haldol to prn, and got chest xr to r/o any rib fracture- s/p restraint- prn ibuprofen for musculoskeletal pain given information re trileptal continue trileptal with latuda 01/17/21 feels no matter what she says we will do what we want- sit at latuda 40mg and trial trileptal - then pending court- 01/18/21 Continue current regime 01/20/21 Continue current regime HIREN pending Addiction Medicine will send a chemical recovery operator to meet with pt. 01/21: continues to present guarded, thinks hospital and family agains her. despite admitting s/s of depression unable to work, worried about taking medications despite no evidence of side effect and potential benefit of reducing severe depression/suicidal thoughts which suspect are product of underlying delusional content. no changes to medications. 01/22/21: Decrease Trileptal to 150 mg daily for two days then discontinue Increase Latuda to 20 mg a.m. and continue 40 mg in the evening. (Pt requesting splitting of the dosage) Offer support for current housing issues Court 01/28/21. Weekend coverage: 01/23- pt appears fatigued, dysphoric, hopeless. Continues to be guarded, difficult to engage in meaningful conversation, insight and judgment remain poor and pt's sx appear exacerbated by recent housing issue, risk of homelessness. Latuda dose increased to 20 mg this morning. Plan to discontinue trileptal due to fatigue and to reduce polypharm, denies benefit. 01/24- Pt continues to perseverate on upcoming court and housing situation. Continues to present with sx of depression. Will discontinue trileptal due to reported lack of benefit and possible sedating SE. Pt denies safety concerns but historically is not reliable historian, guarded and presents with poor insight/ judgment. 01/25/21 Some improvement reported. HIREN 01/26/21. Pt states that she is feeling some relief today. She is now needing to manage not having a place to live and is beginning to problem solve. Discussion of antidressant trial/another mood stabilizer Will trial Sertraline 25 mg daily. Letter drafted to Professor Jessica Palomares, [facility] to validate pts admission dates at pt request. 01/26/21 HIREN scheduled for today Tolerating regime, sedation is managed she reports today. Continue regime Will draft a letter to excuse pt from Jury Duty responsibility. 01/27/[address] date 02/04/21 Tolerating regime- will continue Expressing sadness today mostly due to stress on family relationships this episode of illness has had Pt has no information on Jury Duty responsiblity-will attempt to call as pt does not have her juror ID number. 01/28/21 Continue current plan 01/29/21 Continue current plan 01/31/21: Ct plan 02/01/21: Pt active in looking for housing with team. Court 02/04. Asks for no medication changes today. Reports stress due to housing situation. 02/02/21: Discussing effects of not obtaining treatment have had along with concerns about housing. I spent 25 minutes with the patient and/or on the patient floor today, greater than?50% of which was spent counseling/coordinating care. Patient educated on: diagnosis Informed Consent: understands and further education needed Reason for contiued inpatient stay Substantial Risk for: inability to function and rapid decompensation
[2021-02-03] MEDS: Lurasidone HCl 20 MG TABLET PO (08:13)
[2021-02-03 08:59] VITALS: BP 170/77; PULSE 59; RESP 16; TEMP 37; O2SAT 97
[2021-02-03 09:12] VITALS: BP 144/96; PULSE 60
[2021-02-03] MEDS: Lurasidone HCl 40 MG TABLET PO (18:14)
--- NOTE | 2021-02-03 18:36 | HO.PSYCHPN ---
Subjective Subjective Date of Service: 02/03/21 Reason For Visit: Crisis Subjective Notes: Section 7 Healthcare Proxy: No Guardianship: No Medical Problems Affecting Mental Status: No Interim History: Court date postponed until 02/09. Pt with improvement. Planning for her future-continues anxious about housing-former room-mate has declined to have pt return. 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 Denies SI plan or intent and reports she is comfortable with regime wishing I had not stopped it . Reports reasonable sleep, appetite. Discussed HTN sx. Pt, at this time declines interventions, stating it is my anxiety about housing-I will monitor it Pt wanting to be on as few medications as possible. Medication Compliance: Yes Side effects from medications: No Attending Groups: Yes Review of Systems Acute medical concerns: No Medical Review of Systems: unchanged Review of Systems Psychiatric: Reports anxiety and Reports other (worry about her housing) Mental Status Exam Mental Status Exam Patient Appearance: Appropriate Patient Orientation: Person, Place, Time and Situation Level of Consciousness: Alert Patient Behavior: Talkative, Cooperative, Anxious and Good Eye Contact Mood Description: Anxious and Flat Affect Description: Anxious and Flat Patient Cognition Impaired: No Ability to Follow Directions: Good Speech Pattern: Spontaneous Speech and Soft-Spoken Memory Description: Intact Hallucinations: None Delusions: Not Present Thought Process: Rumination and Goal Oriented Thought Content: positive for [place] and positive for Circumstantial Depressive Symptoms: Increased Anxiety, Diff. Making Decisions, Feelings of Guilt and Low Self Esteem Judgement: Fair Diagnostics Vital Signs (24Hr): Vital Signs - 24 hr 02/03/21 08:59 02/03/21 09:12 Temperature 98.6 F Pulse Rate 59 60 Respiratory Rate 16 Blood Pressure 170/77 H 144/96 H Pulse Oximetry 97 BMI result Body Mass Index 25.2 Labs Results: 01/29/21 07:59 01/29/21 07:59 Imaging Radiology Impressions: ITS Impressions Chest X-Ray 01/16/21 12:47 IMPRESSION: No acute pneumonic process. Likely mild reactive small airway disease. Medications Medications Current Medications Acetaminophen (Acetaminophen 325 Mg Tablet) 650 mg PO Q6H PRN PRN Reason: Headache/Pain Mild Scale (1-3) Al Hydroxide/Mg Hydroxide (Magnesium Hydrox/Alum Hydrox 30 Ml Oral.Susp) 30 ml PO Q6H PRN PRN Reason: Heartburn/Nausea Benztropine Mesylate (Benztropine Mesylate 0.5 Mg Tablet) 0.5 mg PO TID PRN PRN Reason: Extrapyramidal Effects Diphenhydramine HCl (Diphenhydramine Hcl 25 Mg Tablet) 50 mg PO Q6H PRN PRN Reason: EPS Ferrous Sulfate (Ferrous Sulfate 324 Mg Tablet.) 324 mg PO DAILY [facility] Last Admin: 02/03/21 08:15 Dose: Not Given Documented by: Folic Acid (Folic Acid 1 Mg Tablet) 1 mg PO DAILY [facility] Last Admin: 02/03/21 08:15 Dose: Not Given Documented by: Haloperidol (Haloperidol 5 Mg Tablet) 5 mg PO QID PRN PRN Reason: agitation,violence Hydroxyzine HCl (Hydroxyzine Hcl 25 Mg Tablet) 25 mg PO Q6H PRN PRN Reason: Anxiety Ibuprofen (Ibuprofen 600 Mg Tablet) 600 mg PO Q6H PRN PRN Reason: moderate pain Lurasidone HCl (Lurasidone Hcl 40 Mg Tablet) 40 mg PO DAILY@1700 [facility] Last Admin: 02/03/21 18:14 Dose: 40 mg Documented by: Lurasidone HCl (Lurasidone Hcl 20 Mg Tablet) 20 mg PO DAILY [facility] Last Admin: 02/03/21 08:13 Dose: 20 mg Documented by: Magnesium Hydroxide (Milk Of Magnesia 30 Ml Oral.Susp) 30 ml PO DAILY PRN PRN Reason: Constipation Multivitamins/Vitamin C (Multivitamin Tablet) 1 tab PO DAILY [facility] Last Admin: 02/03/21 08:15 Dose: Not Given Documented by: Nicotine Polacrilex (Nicotine Polacrilex 2 Mg Gum) 2 mg BUCCAL Q2H PRN PRN Reason: Nicotine Cravings Pharmacy Consult (Consult Rx Perform Med Rec) 1 each MISCELLANE ONCE PRN PRN Reason: Consult order Sertraline HCl (Sertraline Hcl 25 Mg Tablet) 25 mg PO BEDTIME [facility] Last Admin: 02/02/21 20:26 Dose: 25 mg Documented by: Trazodone HCl (Trazodone Hcl 50 Mg Tablet) 50 mg PO BEDTIME PRN PRN Reason: Insomnia Last Admin: 01/13/21 03:50 Dose: 50 mg Documented by: Allergies Allergies Allergy/AdvReac Type Severity Reaction Status Date / Time lamotrigine [From Lamictal] AdvReac Unknown Unknown Verified 01/01/21 20:31 Benzodiazepines AdvReac pt asks Verified 01/15/21 18:18 for no benzos due to her addiction history Assessment & Plan Assessment & Plan (1) Bipolar disorder current episode depressed: Qualifiers: Current episode severity: severe Psychotic features: with psychotic features Qualified Code(s): F31.5 - Bipolar disorder, current episode depressed, severe, with psychotic features Status: Acute Code(s): F31.30 - Bipolar disorder, current episode depressed, mild or moderate severity, unspecified (2) Seasonal affective disorder: Status: Acute Code(s): F33.8 - Other recurrent depressive disorders Assessment and Plan: ongoing Ambivalent about medications and effects angry and irritable re being kept here, re medications, but also depressed and hopeless hx failed lexapro trial now on latuda and ? trileptal if she will take 01/13/21: Civil commitment filing completed Discontinue Geodon Latuda 20 mg HS Discontinue Lexapro 01/15/21 Significant evening agitation with two elopement episodes, requiring IM medications. Pt is reluctant to titrate regime of Latuda. Currently it is not effective in symptom mgt at 20 mg. She refuses increase so we will need to change regime. Plan: Discontinue Latuda Haldol 10 mg bid Trileptal 300 mg bid 01/15/21: documentation per restraint protocol. patient seen and assessed for safety. 01/16/21 agreed to latuda , change haldol to prn, and got chest xr to r/o any rib fracture- s/p restraint- prn ibuprofen for musculoskeletal pain given information re trileptal continue trileptal with latuda 01/17/21 feels no matter what she says we will do what we want- sit at latuda 40mg and trial trileptal - then pending court- 01/18/21 Continue current regime 01/20/21 Continue current regime HIREN pending Addiction Medicine will send a agile coach to meet with pt. 01/21: continues to present guarded, thinks hospital and family agains her. despite admitting s/s of depression unable to work, worried about taking medications despite no evidence of side effect and potential benefit of reducing severe depression/suicidal thoughts which suspect are product of underlying delusional content. no changes to medications. 01/22/21: Decrease Trileptal to 150 mg daily for two days then discontinue Increase Latuda to 20 mg a.m. and continue 40 mg in the evening. (Pt requesting splitting of the dosage) Offer support for current housing issues Court 01/28/21. Weekend coverage: 01/23- pt appears fatigued, dysphoric, hopeless. Continues to be guarded, difficult to engage in meaningful conversation, insight and judgment remain poor and pt's sx appear exacerbated by recent housing issue, risk of homelessness. Latuda dose increased to 20 mg this morning. Plan to discontinue trileptal due to fatigue and to reduce polypharm, denies benefit. 01/24- Pt continues to perseverate on upcoming court and housing situation. Continues to present with sx of depression. Will discontinue trileptal due to reported lack of benefit and possible sedating SE. Pt denies safety concerns but historically is not reliable historian, guarded and presents with poor insight/ judgment. 01/25/21 Some improvement reported. HIREN 01/26/21. Pt states that she is feeling some relief today. She is now needing to manage not having a place to live and is beginning to problem solve. Discussion of antidressant trial/another mood stabilizer Will trial Sertraline 25 mg daily. Letter drafted to Professor Jessica Palomares, [facility] to validate pts admission dates at pt request. 01/26/21 HIREN scheduled for today Tolerating regime, sedation is managed she reports today. Continue regime Will draft a letter to excuse pt from Jury Duty responsibility. 01/27/[address] date 02/04/21 Tolerating regime- will continue Expressing sadness today mostly due to stress on family relationships this episode of illness has had Pt has no information on Jury Duty responsiblity-will attempt to call as pt does not have her juror ID number. 01/28/21 Continue current plan 01/29/21 Continue current plan 01/31/21: Ct plan 02/01/21: Pt active in looking for housing with team. Court 02/04. Asks for no medication changes today. Reports stress due to housing situation. 02/02/21: Discussing effects of not obtaining treatment have had along with concerns about housing. 02/03/21: Declines intervention for HTN. Continues to look for housing. Court rescheduled for 02/09/21. I spent 25 minutes with the patient and/or on the patient floor today, greater than?50% of which was spent counseling/coordinating care. Reason for contiued inpatient stay Substantial Risk for: inability to function and rapid decompensation
--- NOTE | 2021-02-03 19:22 | MHC.RECOVSUP ---
? Reason for consult: Recovery Coaching o ? ? ?Current location: ?[address] ? ? ?Identified substance use concern: ? - Support ? ?Intervention: o Community resources provided o Harm reduction discussion ? Plan: o Follow up tomorrow ? ? Additional information:?I was able to connect with patient and give her additional resources for sober assisted housing, also sent a housing application to patient's social media editor via email. We were to complete an intake for power and recovery supervisor services and reviewed harm reduction strategies. I suggested coping skills for stress which included deep breathing and journaling. I will follow up tomorrow.
[2021-02-03 20:25] LABS: COVID-19 Test Negative (Negative); IDNOW Serial# 9DD0AD1C
[2021-02-03] MEDS: Sertraline HCL 25 MG TABLET PO (20:59)
[2021-02-04 06:22] VITALS: BP 144/78; PULSE 58; RESP 16; TEMP 36.2; O2SAT 97
[2021-02-04] MEDS: Lurasidone HCl 20 MG TABLET PO (08:24)
[2021-02-04 08:38] VITALS: BMI 25.6
[2021-02-04] MEDS: Lurasidone HCl 40 MG TABLET PO (16:36)
[2021-02-04 17:26] VITALS: BP 147/78; PULSE 59; RESP 16; TEMP 37.1; O2SAT 98
[2021-02-04] MEDS: Sertraline HCL 25 MG TABLET PO (20:30)
--- NOTE | 2021-02-04 21:28 | P.PNPSI_ITS ---
Subjective Subjective Date of Service: 02/04/21 Reason For Visit: Crisis Subjective Notes: Section 7 Healthcare Proxy: No Guardianship: No Medical Problems Affecting Mental Status: No Interim History: Pt has found housing at a sober home in [place]-she will be admitted on Feb 09, 2021. She discussed discharge and requested a date for 02/05 due to another pt having COVID on the unit and not wanting to become positive and ruin her chances for placement. She would like to use the four days to gather her belongings from previous residence, check in with work and school, prepare for holiday and attend to finances. She will plan to rent a hotel room during this time. She also asks for assist in finding a COVID booster and will go to [facility] as a walk in after discharge. Medication Compliance: Yes Side effects from medications: No Attending Groups: Yes Review of Systems Acute medical concerns: No Medical Review of Systems: unchanged Review of Systems Psychiatric: Reports anxiety and Reports other (worry about her housing) Mental Status Exam Mental Status Exam Patient Appearance: Appropriate Patient Orientation: Person, Place, Time and Situation Level of Consciousness: Alert Patient Behavior: Talkative, Cooperative, Anxious and Good Eye Contact Mood Description: Anxious and Flat Affect Description: Anxious and Flat Patient Cognition Impaired: No Ability to Follow Directions: Good Speech Pattern: Spontaneous Speech and Soft-Spoken Memory Description: Intact Hallucinations: None Delusions: Not Present Thought Process: Rumination and Goal Oriented Thought Content: positive for [place] and positive for Circumstantial Depressive Symptoms: Increased Anxiety, Diff. Making Decisions, Feelings of Guilt and Low Self Esteem Judgement: Fair Diagnostics Vital Signs (24Hr): Vital Signs - 24 hr 02/04/21 06:22 02/04/21 17:26 Temperature 97.2 F 98.7 F Pulse Rate 58 59 Respiratory Rate 16 16 Blood Pressure 144/78 H 147/78 H Pulse Oximetry 97 98 BMI result Body Mass Index 25.6 Labs Results: 01/29/21 07:59 01/29/21 07:59 Labs: Laboratory Results - last 48 hr 02/03/21 19:58 COVID-19 ([facility]) Negative COVID-19 Clin Com See Note Imaging Radiology Impressions: ITS Impressions Chest X-Ray 01/16/21 12:47 IMPRESSION: No acute pneumonic process. Likely mild reactive small airway disease. Medications Medications Current Medications Acetaminophen (Acetaminophen 325 Mg Tablet) 650 mg PO Q6H PRN PRN Reason: Headache/Pain Mild Scale (1-3) Al Hydroxide/Mg Hydroxide (Magnesium Hydrox/Alum Hydrox 30 Ml Oral.Susp) 30 ml PO Q6H PRN PRN Reason: Heartburn/Nausea Benztropine Mesylate (Benztropine Mesylate 0.5 Mg Tablet) 0.5 mg PO TID PRN PRN Reason: Extrapyramidal Effects Diphenhydramine HCl (Diphenhydramine Hcl 25 Mg Tablet) 50 mg PO Q6H PRN PRN Reason: EPS Ferrous Sulfate (Ferrous Sulfate 324 Mg Tablet.Dr) 324 mg PO DAILY [facility] Last Admin: 02/04/21 08:26 Dose: Not Given Documented by: Folic Acid (Folic Acid 1 Mg Tablet) 1 mg PO DAILY [facility] Last Admin: 02/04/21 08:26 Dose: Not Given Documented by: Haloperidol (Haloperidol 5 Mg Tablet) 5 mg PO QID PRN PRN Reason: agitation,violence Hydroxyzine HCl (Hydroxyzine Hcl 25 Mg Tablet) 25 mg PO Q6H PRN PRN Reason: Anxiety Ibuprofen (Ibuprofen 600 Mg Tablet) 600 mg PO Q6H PRN PRN Reason: moderate pain Lurasidone HCl (Lurasidone Hcl 40 Mg Tablet) 40 mg PO DAILY@1700 [facility] Last Admin: 02/04/21 16:36 Dose: 40 mg Documented by: Lurasidone HCl (Lurasidone Hcl 20 Mg Tablet) 20 mg PO DAILY [facility] Last Admin: 02/04/21 08:24 Dose: 20 mg Documented by: Magnesium Hydroxide (Milk Of Magnesia 30 Ml Oral.Susp) 30 ml PO DAILY PRN PRN Reason: Constipation Multivitamins/Vitamin C (Multivitamin Tablet) 1 tab PO DAILY [facility] Last Admin: 02/04/21 08:26 Dose: Not Given Documented by: Nicotine Polacrilex (Nicotine Polacrilex 2 Mg Gum) 2 mg BUCCAL Q2H PRN PRN Reason: Nicotine Cravings Pharmacy Consult (Consult Rx Perform Med Rec) 1 each MISCELLANE ONCE PRN PRN Reason: Consult order Sertraline HCl (Sertraline Hcl 25 Mg Tablet) 25 mg PO BEDTIME [facility] Last Admin: 02/04/21 20:30 Dose: 25 mg Documented by: Trazodone HCl (Trazodone Hcl 50 Mg Tablet) 50 mg PO BEDTIME PRN PRN Reason: Insomnia Last Admin: 01/13/21 03:50 Dose: 50 mg Documented by: Allergies Allergies Allergy/AdvReac Type Severity Reaction Status Date / Time lamotrigine [From Lamictal] AdvReac Unknown Unknown Verified 01/01/21 20:31 Benzodiazepines AdvReac pt asks Verified 01/15/21 18:18 for no benzos due to her addiction history Assessment & Plan Assessment & Plan (1) Bipolar disorder current episode depressed: Qualifiers: Current episode severity: severe Psychotic features: with psychotic features Qualified Code(s): F31.5 - Bipolar disorder, current episode depressed, severe, with psychotic features Status: Acute Code(s): F31.30 - Bipolar disorder, current episode depressed, mild or moderate severity, unspecified (2) Seasonal affective disorder: Status: Acute Code(s): F33.8 - Other recurrent depressive disorders Assessment and Plan: ongoing Ambivalent about medications and effects angry and irritable re being kept here, re medications, but also depressed and hopeless hx failed lexapro trial now on latuda and ? trileptal if she will take 01/13/21: Civil commitment filing completed Discontinue Geodon Latuda 20 mg HS Discontinue Lexapro 01/15/21 Significant evening agitation with two elopement episodes, requiring IM medications. Pt is reluctant to titrate regime of Latuda. Currently it is not effective in symptom mgt at 20 mg. She refuses increase so we will need to change regime. Plan: Discontinue Latuda Haldol 10 mg bid Trileptal 300 mg bid 01/15/21: documentation per restraint protocol. patient seen and assessed for safety. 01/16/21 agreed to latuda , change haldol to prn, and got chest xr to r/o any rib fracture- s/p restraint- prn ibuprofen for musculoskeletal pain given information re trileptal continue trileptal with latuda 01/17/21 feels no matter what she says we will do what we want- sit at latuda 40mg and trial trileptal - then pending court- 01/18/21 Continue current regime 01/20/21 Continue current regime HIREN pending Addiction Medicine will send a catalyst recovery operator to meet with pt. 01/21: continues to present guarded, thinks hospital and family agains her. despite admitting s/s of depression unable to work, worried about taking medications despite no evidence of side effect and potential benefit of reducing severe depression/suicidal thoughts which suspect are product of underlying delusional content. no changes to medications. 01/22/21: Decrease Trileptal to 150 mg daily for two days then discontinue Increase Latuda to 20 mg a.m. and continue 40 mg in the evening. (Pt requesting splitting of the dosage) Offer support for current housing issues Court 01/28/21. Weekend coverage: 01/23- pt appears fatigued, dysphoric, hopeless. Continues to be guarded, difficult to engage in meaningful conversation, insight and judgment remain poor and pt's sx appear exacerbated by recent housing issue, risk of homelessness. Latuda dose increased to 20 mg this morning. Plan to discontinue trileptal due to fatigue and to reduce polypharm, denies benefit. 01/24- Pt continues to perseverate on upcoming court and housing situation. Continues to present with sx of depression. Will discontinue trileptal due to reported lack of benefit and possible sedating SE. Pt denies safety concerns but historically is not reliable historian, guarded and presents with poor insight/ judgment. 01/25/21 Some improvement reported. HIREN 01/26/21. Pt states that she is feeling some relief today. She is now needing to manage not having a place to live and is beginning to problem solve. Discussion of antidressant trial/another mood stabilizer Will trial Sertraline 25 mg daily. Letter drafted to Professor Jessica Palomares, [facility] to validate pts admission dates at pt request. 01/26/21 HIREN scheduled for today Tolerating regime, sedation is managed she reports today. Continue regime Will draft a letter to excuse pt from Jury Duty responsibility. 01/27/[address] date 02/04/21 Tolerating regime- will continue Expressing sadness today mostly due to stress on family relationships this episode of illness has had Pt has no information on Jury Duty responsiblity-will attempt to call as pt does not have her juror ID number. 01/28/21 Continue current plan 01/29/21 Continue current plan 01/31/21: Ct plan 02/01/21: Pt active in looking for housing with team. Court 02/04. Asks for no medication changes today. Reports stress due to housing situation. 02/02/21: Discussing effects of not obtaining treatment have had along with concerns about housing. 02/03/21: Declines intervention for HTN. Continues to look for housing. Court rescheduled for 02/09/21. 02/04/21: Discharge planned for 02/05/21 Pt made a call to her sister Yarelis in [place] with this parts data writer and reviewed plan. Yarelis is approving-pt is pleased. Pt will admit to a sober home on 02/09. I spent 35 minutes with the patient and/or on the patient floor today, greater than?50% of which was spent counseling/coordinating care. Patient educated on: therapeutic strategies Informed Consent: understands Reason for contiued inpatient stay Substantial Risk for: stable for discharge
[2021-02-05] MEDS: Lurasidone HCl 20 MG TABLET PO (08:42)
[2021-02-05 09:01] LABS: COVID-19 Test Negative (Negative)
--- NOTE | 2021-02-05 16:15 | P.DS_ITS ---
DS: Providers Provider Date of Service: 02/05/21 Date of admission: 01/02/21 01:16 Date of discharge: 02/05/21 Primary care physician: Erin Griffin MD Admitting clinician: Maykel Cuba Attending physician on admission: Maykel Cuba Attending physician on discharge: Chris Garza Discharging clinician: Juliane Gomez DS: Diagnosis Discharge Diagnosis (1) Bipolar disorder current episode depressed: Status: Acute (2) Seasonal affective disorder: Status: Acute DS: Medications Discharge Medications Home Medications: Previous Rx's Medication Instructions Recorded ferrous sulfate 324 mg (65 mg 324 mg PO DAILY #30 tab 02/04/21 iron) tablet,delayed release folic acid 1 mg tablet 1 mg PO DAILY #30 tab 02/04/21 lurasidone 20 mg tablet (Latuda) 20 mg PO DAILY #30 tab 02/04/21 lurasidone 40 mg tablet (Latuda) 40 mg PO DAILY@1700 #30 tab 02/04/21 multivitamin (Daily-Janeth) 1 tab PO DAILY #30 tab 02/04/21 sertraline 25 mg tablet 25 mg PO BEDTIME #30 tab 02/04/21 Mental Status Exam Mental Status Exam Patient Appearance: Appropriate Patient Orientation: Person, Place, Time and Situation Level of Consciousness: Alert Patient Behavior: Talkative, Cooperative, Anxious and Good Eye Contact Mood Description: Anxious and Flat Affect Description: Anxious and Flat Patient Cognition Impaired: No Ability to Follow Directions: Good Speech Pattern: Spontaneous Speech and Soft-Spoken Memory Description: Intact Hallucinations: None Delusions: Not Present Thought Process: Rumination and Goal Oriented Thought Content: positive for [place] and positive for Circumstantial Depressive Symptoms: Increased Anxiety, Diff. Making Decisions, Feelings of Guilt and Low Self Esteem Judgement: Fair Data Data Completed and Pending Completed studies during hospitalization [Text1]: 02/03/21 02/05/21 19:58 08:20 COVID-19 ([facility]) Negative Negative COVID-19 Clin Com See Note See Note Imaging Diagnostic Imaging Impressions Chest X-Ray 01/16/21 12:47 IMPRESSION: No acute pneumonic process. Likely mild reactive small airway disease. DS: Summary Hospital Course Hospital Course: Penny returned for admission after admission 12/28/20-12/31/20. She needed to discharge due to a dental emergency that her out pt dental team managed and she returned to continue her admission from 01/02/21-02/05/21. She returned to adult psychiatry to address symptoms of bipolar disorder, depression and seasonal affective disorder. She struggled with acute suicidality throughout the admissi on, requiring the team to file Section VII, however, treatment was on track by the time her court date was scheduled and we were not in need of a court decision regarding treatment. Her care plan, medication regime and out patient plan of care prior to this admission were again reviewed. Education was provided regarding managment of symptoms, medicine and side effect potential. Nursing and social welfare research worker worked with Penny on keeping connected to her family in [place] and [place], her plan of care, her leave of absence from her work and graduate school program, education regarding management of symptoms, medicine and discharge planning. Latuda was re-started and titrated with success. Sertraline was initiated. Wellbutrin was discontinued. Pt experienced hypertension while in patient, however, she declined medication treatment, citing wanting to have an opportunity to discharge, return to her life and work prior to taking medication. During her hospitalization Penny lost an opportuni ty to move to a new apartment. She chose to discharge to a sober home which her team assisted her in securing. She was pleased with this plan as she has currently maintained over three years of sobriety and is well connected to the community. Time spent discussing smoking cessation with patient: 3 to 10 minutes Status at Discharge Cognitive/behavioral status at discharge: non-suicidal, non-psychotic Functional status at discharge: independent ambulation Overall status at discharge: patient is progressing back to baseline Time Spent with Patient Time attestation: Total time spent providing and/or coordinating discharge services: Time spent: Greater than 30 minutes Discharge Plan Discharge Patient Disposition: Xfer Other Discharge Diagnosis: Bipolar Disorder, Depressed Seasonal Affective Disorder Alcohol Use Disorder-Sobriety maintained for over three years. Referrals: Therapy: Lia Clement ([facility]) [Other] - 02/10/21 11:00 am (In office) Psych Prescriber: Madelin York ([facility]) [Other] - 03/03/21 10:40 am (*You will be sent an email with instructions to download the maged used to engage in video session. You will an email with a link to join the appointment as well*) Psych Prescriber: Madelin York ([facility]) [Other] - 04/01/21 1:00 pm (*You will be sent an email with a link to join the appointment*) Erin Griffin MD [Primary Care Provider] - 1 Week (OFFICE WILL CALL HER WITH FOLLOW-UP APPOINTMENT.) Discharge Medications: New ferrous sulfate 324 mg (65 mg iron) Tablet,Delayed Release (Dr/Ec) 324 mg PO DAILY Qty: 30 RF: 1 Latuda 20 mg Tablet 20 mg PO DAILY Qty: 30 RF: 0 Latuda 40 mg Tablet 40 mg PO DAILY@1700 Qty: 30 RF: 0 sertraline 25 mg Tablet 25 mg PO BEDTIME Qty: 30 RF: 0 Continued multivitamin [Daily-Janeth] Tablet 1 tab PO DAILY Qty: 30 RF: 0 folic acid 1 mg Tablet 1 mg PO DAILY Qty: 30 RF: 0 Discontinued bupropion HCl 75 mg Tablet 75 mg PO DAILY Qty: 15 RF: 1 Discharge Orders: Discharge Order (Routine); Ordered 02/05/21 Ordered By: Juliane Gomez Diet: advance to usual diet Activity on Discharge: As tolerated Stand Alone Forms: Patient Portal Discharge page, Community Support Care Plan Goals: Mood Stabilization Continue to maintain sobriety Continue with AA Monitor for hypertension Health Concerns: Bipolar Disorder, Depressed Seasonal Affective Disorder Hypertension Alcohol Use Disorder with > 3 years sobriety Plan of Treatment: Attend scheduled appointments Take medications as directed If you are considering a new primary care Dr. Chrissy Thacker at [facility] has a primary care practice which is in line with your health goals which we have discussed. [phone]. Use crisis as needed Call or return as needed. Assessment: non-psychotic, non-suicidal Discharge Date/Time: 02/05/21 12:48
== END 2021-02-05 12:48 | disposition other institution (70) | DRG 753 ==
LOC: HO.ED 21:44 → HO.PM5 01-02 01:37
PROVIDERS: Physician Assistant; Psychiatry & Neurology Psychiatry; Admitting Provider Social Worker; Emergency Provider Internal Medicine; PCP Family Medicine; Visit Provider Clinical Nurse Specialist Psychiatric/Mental Health, Adult
DX: F31.30 Bipolar disorder, current episode depressed, mild or moderate severity, unspecified (principal); R45.851 Suicidal ideations; Z91.14 Patient's other noncompliance with medication regimen; F10.11 Alcohol abuse, in remission; I10 Essential (primary) hypertension; Z20.822 Contact with and (suspected) exposure to COVID-19; Z23 Encounter for immunization; Z79.899 Other long term (current) drug therapy
CPT/HCPCS: 36415; 71045; 80048; 80053; 80061; 80307; 82077; 82607; 82746; 83036; 84443; 85025; 87635; 90686; 93005; 99285; J2060